=== PATIENT | female | born 1945 | race Caucasian/White ===

== ENCOUNTER → 2018-01-02 | Outpatient (CLI) | payer MEDICARE ==
--- NOTE | 2018-01-02 16:05 | Diagnostic Imaging Report ---
TECHNIQUE: Computed tomography imaging of the RIGHT SHOULDER was performed WITHOUT injected contrast. COMPARISON: None available. HISTORY: Pain FINDINGS: No acute fracture. No lytic or blastic lesion. Mild glenohumeral degenerative arthrosis with small osteophyte formation and cystic change in the glenoid. No subluxation or dislocation. Moderate degenerative arthrosis of the acromioclavicular joint with inferior osteophyte formation. Subacromial spurring. Atrophy of the rotator cuff musculature involving the supraspinatus and infraspinatus. Chronic interstitial change within the lungs with large bulla measuring up to 6.3 cm. IMPRESSION: Mild glenohumeral degenerative arthrosis. Findings of probable high-grade rotator cuff tear with muscle atrophy. Signed by: Dr. Rom Mcmahon M.D. on 01/02/2018 4:02 PM
== END ==
LOC: CT 14:18
PROVIDERS: ATTEND Internal Medicine
DX: M25.511 Pain in right shoulder (principal); M19.011 Primary osteoarthritis, right shoulder

== ENCOUNTER 2018-03-22 16:57 | Inpatient (IN) | payer MEDICARE ==
[~2018-03-22] VITALS: Ht 175.3 cm; Wt 90.7 kg
[2018-03-22] MEDS ORDERED: ONDANSETRON HCL INJ 2 MG/ML VIAL IV STA (17:53)
[2018-03-22] MEDS ORDERED: SODIUM CHLORIDE 0.9% 1000ML 1,000 ML IV STA (17:53)
[2018-03-22] MEDS ORDERED: PANTOPRAZOLE 40 MG 10ML VIAL IV STA (17:53)
[2018-03-22] MEDS ORDERED: ALBUTEROL SULF 0.083% NEB SOLN 3 ML NEB NEB STA (18:07)
[2018-03-22 18:10] LABS: BASOPHILS # (AUTO) 0.1 (0.0-0.1); BASOPHILS % 0.4 % (0.0-1.0); EOSINOPHILS # (AUTO) 0.2 (0.0-0.4); EOSINOPHILS % 1.2 % (0.0-6.0); HEMATOCRIT 38.5 % (34.2-44.1); HEMOGLOBIN 12.5 g/dL (12.0-16.0); LYMPHOCYTES # (AUTO) 1.6 (1.0-3.2); LYMPHOCYTES % 8.6 % (18.0-39.1); MEAN CORPUSCULAR HEMOGLOBIN 31.4 pg (28-32); MEAN CORPUSCULAR HGB CONC 32.5 g/dL (31-35); MEAN CORPUSCULAR VOLUME 96.7 fL (81-99); MONOCYTES # (AUTO) 1.4 (0.2-0.8); MONOCYTES % 7.8 % (4.4-11.3); NEUTROPHILS % 81.2 % (38.7-80.0); PLATELET COUNT 198 x10e3/uL (140-360); RED BLOOD COUNT 3.98 x10e6/uL (3.6-5.1); RED CELL DISTRIBUTION WIDTH 14.6 % (11.7-14.4)
[2018-03-22] MEDS ORDERED: MORPHINE SULFATE 2 MG/ML SYR IV STA (18:12)
[2018-03-22] MEDS ORDERED: IPRATROPIUM BROMIDE 0.02% 2.5 ML NEB NEB ONE (18:15)
[2018-03-22 18:19] LABS: INR 1.66; PROTHROMBIN TIME 18.4 seconds (11.9-14.5)
[2018-03-22 18:20] LABS: PARTIAL THROMBOPLASTIN TIME 32.6 seconds (23.8-35.5)
[2018-03-22 18:30] LABS: ALBUMIN 2.5 g/dL (3.5-5.0); ALBUMIN/GLOBULIN RATIO 0.6 (0.8-2.0); ANION GAP 19.9 mmol/L (8-16); CALCIUM 8.9 mg/dL (8.4-10.2); CREATININE, SERUM 1.19 mg/dL (0.57-1.11); MAGNESIUM 2.3 MG/DL (1.3-2.1); POTASSIUM 3.9 mmol/L (3.5-5.1)
[2018-03-22 18:36] LABS: CREATINE KINASE MB 1.7 ng/mL (0-5.0)
--- NOTE | 2018-03-22 18:44 | Diagnostic Imaging Report ---
EXAMINATION: CHEST SINGLE (PORTABLE) INDICATION: \S\ABD PAIN, N/V, COUGH \S\[id number] \S\1819 COMPARISON: None FINDINGS: AP view TUBES and LINES: 3-lead ICD with device overlying the left upper chest and leads overlying the right atrium, coronary sinus, and right ventricle. LUNGS: Low lung volumes. Patchy airspace opacities, bilaterally, right greater than left. Bilateral central pulmonary congestion. PLEURA: No pleural effusion or pneumothorax. HEART AND MEDIASTINUM: Mild enlargement of the left ventricle.. BONES AND SOFT TISSUES: No acute osseous lesion. Soft tissues are unremarkable. UPPER ABDOMEN: No free air under the diaphragm. IMPRESSION: Bilateral central pulmonary vascular congestion. Denser patchy opacities mainly in the right lower lobe may represent superimposed infection. Continue to follow-up. Signed by: Dr. Shara Morse M.D. on 03/22/2018 6:41 PM
[2018-03-22] MEDS ORDERED: DIATRIZOATE MEGL/DIATRIZOA SOD 30 ML BTL PO ONE (18:58)
[2018-03-22] MEDS ORDERED: LEVOFLOXACIN 500MG/D5W 100ML 100 ML IV SCH (19:30)
[2018-03-22] MEDS ORDERED: FERROUS SULFAT324 MG (19:43)
[2018-03-22] MEDS ORDERED: FLOVENT DISKUS50 MCG (19:43)
[2018-03-22] MEDS ORDERED: POTASSIUM CHLO10 ME1 PO (19:43)
[2018-03-22] MEDS ORDERED: OXYBUTYNIN CHLOR5 M1 PO (19:43)
[2018-03-22] MEDS ORDERED: MELATONIN3 MG PO (19:43)
[2018-03-22 19:46] LABS: OCCULT BLOOD STOOL NEGATIVE (NEGATIVE)
[2018-03-22 19:47] LABS: BILIRUBIN,URINE 1+ (NEGATIVE); CLARITY,URINE SL CLOUDY (CLEAR); COLOR,URINE YELLOW (YELLOW); KETONES,URINE NEGATIVE (NEGATIVE); LEUKOCYTE ESTERASE ,URINE TRACE (NEGATIVE); NITRITE,URINE POSITIVE (NEGATIVE); PROTEIN,URINE DIPSTICK 2+ (NEGATIVE); URINE UROBILINOGEN 0.2 mg/dL (0.2 - 1)
[2018-03-22 20:00] VITALS: BP 110/75
[2018-03-22 20:03] LABS: BACTERIA,URINE MANY /HPF; EPITHELIAL CELLS,URINE MODERATE /LPF
[2018-03-22 20:04] LABS: AMORPHOUS SEDIMENT,URINE MANY (FEW); TRIPLE PHOSPHATE CRYSTAL,UR MODERATE (FEW)
[2018-03-22] MEDS: PIPER-TAZ 3.375 GM 50 ML IV SCH (20:34)
--- NOTE | 2018-03-22 22:00 | Diagnostic Imaging Report ---
EXAM: CT Abdomen and Pelvis WITHOUT contrast INDICATION: Abdominal pain, nausea, vomiting COMPARISON: None. TECHNIQUE: Abdomen and pelvis were scanned utilizing a multidetector helical scanner from the lung base to the pubic symphysis without administration of IV contrast. Absence of intravenous contrast decreases sensitivity for detection of focal lesions and vascular pathology. Coronal and sagittal reformations were obtained. Routine protocol was performed. IV CONTRAST: None. ORAL CONTRAST: Gastrografin RADIATION DOSE: Total DLP: 736.85 mGy*cm Estimated effective dose: (DLP x 0.015 x size factor) mSv COMPLICATIONS: None FINDINGS: LINES and TUBES: AICD leads visualized in the right atrium, right ventricle and coronary sinus LOWER THORAX: There is a cavitary lesion in the right middle lobe measuring 5 cm in diameter with thick and relatively smooth margins, best seen on series 2, image 1 through 5 HEPATOBILIARY: No focal hepatic lesions. No biliary ductal dilation. GALLBLADDER: There are cholecystectomy clips. SPLEEN: No splenomegaly. PANCREAS: No focal masses or ductal dilatation. ADRENALS: No adrenal nodules KIDNEYS/URETERS: Bilateral renal atrophy recently on the left compatible with chronic medical renal disease No hydronephrosis. No cystic or solid mass lesions. No stones. There is a linear hyperdensity visualized in the inferior pole renal parenchyma extending to the inferior renal collecting system compatible with fragmentation of prior PCN tube. GI TRACT: No abnormal distention, wall thickening, or evidence of bowel obstruction. Moderate amount stool burden noted in the colon and rectum. Postsurgical changes in the rectum compatible with prior resection Appendix is normal. PELVIC ORGANS/BLADDER: There are postop changes of hysterectomy and bilateral oophorectomies. Bladder is decompressed by Nova catheter in place LYMPH NODES: No lymphadenopathy. VESSELS: There is severe atherosclerotic disease in the aorta and major arterial branches. Infrarenal IVC filter is visualized. PERITONEUM / RETROPERITONEUM: No free air or fluid. BONES: There are degenerative changes in the lumbar spine. Compression deformity of T12, most likely chronic resulting in approximately 50% vertebral body height loss SOFT TISSUES: Bilateral gluteal calcified granulomas most likely from injections resulting on fat necrosis IMPRESSION: 1. No evidence of acute intra-abdominal or pelvic abnormality. 2. Cavitated cystic lesion with thick wall in the right middle lobe is suspicious for infection (including remote TB infection) versus neoplasm. Follow-up with nonemergent CT is recommended. 3. Cardiomegaly without evidence of decompensation. Signed by: Dr. Rogers Caro M.D. on 03/22/2018 9:56 PM
[2018-03-22] MEDS ORDERED: SODIUM CHLORIDE 0.9% 1000ML 1,000 ML IV ONE (22:15)
[2018-03-22] MEDS ORDERED: ASPIRIN 81 MG CHEW TAB PO ONE (22:15)
[2018-03-22 23:00] VITALS: BP 110/75
[2018-03-22] MEDS: ALBUTEROL SULF 0.083% NEB SOLN 3 ML NEB NEB SCH (23:00)
[2018-03-22] MEDS: VANCOMYCIN 1GM/NS 250 ML 250 ML IV SCH (23:37)
[2018-03-22] MEDS ORDERED: FLORASTOR250 MG (23:54)
[2018-03-22] MEDS ORDERED: SYNTHROID100 MCG PO (23:54)
[2018-03-22] MEDS ORDERED: PANTOPRAZOLE SO40 MG PO (23:54)
[2018-03-23] VITALS (8 sets, daily range): BP systolic 108–137; BP diastolic 53–98
[2018-03-23] MEDS: ALBUTEROL/IPRATROPIUM 3 ML NEB NEB SCH ×6 (00:10→19:28)
[2018-03-23] MEDS ORDERED: CARVEDILOL3.125 MG PO (00:16)
[2018-03-23] MEDS ORDERED: HYDROCORTISONE25 MG (00:16)
[2018-03-23] MEDS ORDERED: IPRATROPIU0.2 MG/1 M NEB (00:16)
[2018-03-23] MEDS ORDERED: NITROGLYCERIN0.4 MG SL (00:16)
[2018-03-23] MEDS ORDERED: NORCO 5-325 TA1 EACH PO (00:16)
[2018-03-23] MEDS ORDERED: BREO ELLIPTA (00:16)
[2018-03-23] MEDS ORDERED: LEVALBUTER0.63 MG/3 NEB (00:16)
[2018-03-23] MEDS ORDERED: TIZANIDINE HCL4 M1 (00:16)
[2018-03-23] MEDS ORDERED: COENZYME Q10200 MG (00:16)
[2018-03-23] MEDS ORDERED: ACETAMINOPHEN650 MG RC (00:16)
[2018-03-23] MEDS ORDERED: FLEETS (00:16)
[2018-03-23] MEDS ORDERED: REMERON15 M1 (00:16)
[2018-03-23] MEDS ORDERED: AMIODARONE HCL200 MG (00:16)
[2018-03-23] MEDS ORDERED: LOMOTIL TABLET1 EACH (00:16)
[2018-03-23] MEDS ORDERED: CLOTRIMAZOLE-BE15 GM TOP (00:16)
[2018-03-23] MEDS ORDERED: XANAX0.5 MG (00:16)
[2018-03-23] MEDS ORDERED: CHLORASEPTIC177 ML MT (00:16)
[2018-03-23] MEDS ORDERED: BENADRYL25 M1 PO (00:16)
[2018-03-23] MEDS ORDERED: PROCTOSOL-HC28.35 GM (00:16)
[2018-03-23] MEDS ORDERED: ULTRAM50 MG PO (00:16)
[2018-03-23] MEDS ORDERED: GNP B-COMPLEX1 EACH (00:16)
[2018-03-23] MEDS ORDERED: LEVALBUTER1.25 MG/3 INH (00:16)
[2018-03-23] MEDS ORDERED: CLONIDINE HCL0.1 MG PO (00:16)
[2018-03-23] MEDS ORDERED: LIDO (00:16)
[2018-03-23] MEDS ORDERED: [UNRECOGNIZED DRUG - OTHER] (00:16)
[2018-03-23] MEDS ORDERED: XANAX2 MG (00:16)
[2018-03-23] MEDS ORDERED: ZOFRAN ODT4 MG (00:16)
[2018-03-23] MEDS ORDERED: ZINC OXIDE (00:16)
[2018-03-23] MEDS ORDERED: IPRATROPIUM BROMIDE 0.02% 2.5 ML NEB NEB SCH (01:00)
[2018-03-23] MEDS: PIPER-TAZ 3.375 GM 50 ML IV SCH ×4 (01:51→18:25)
[2018-03-23] MEDS ORDERED: SODIUM CHLORIDE 0.9% 250ML 250 ML ONE ×2 (01:52→17:41)
[2018-03-23] MEDS: ALBUTEROL SULF 0.083% NEB SOLN 3 ML NEB NEB SCH ×6 (03:00→23:00)
[2018-03-23 05:15] LABS: BASOPHILS # (AUTO) 0.1 (0.0-0.1); BASOPHILS % 0.4 % (0.0-1.0); EOSINOPHILS # (AUTO) 0.3 (0.0-0.4); EOSINOPHILS % 2.3 % (0.0-6.0); HEMATOCRIT 34.1 % (34.2-44.1); HEMOGLOBIN 10.7 g/dL (12.0-16.0); MEAN CORPUSCULAR HGB CONC 31.4 g/dL (31-35); MEAN CORPUSCULAR VOLUME 98.8 fL (81-99); MONOCYTES # (AUTO) 1.1 (0.2-0.8); MONOCYTES % 9.2 % (4.4-11.3); NEUTROPHILS # (AUTO) 8.1 (2.1-6.9); NEUTROPHILS % 70.4 % (38.7-80.0); PLATELET COUNT 72 x10e3/uL (140-360); RED BLOOD COUNT 3.45 x10e6/uL (3.6-5.1); RED CELL DISTRIBUTION WIDTH 14.7 % (11.7-14.4)
[2018-03-23 05:40] LABS: ALBUMIN/GLOBULIN RATIO 0.6 (0.8-2.0); ANION GAP 19.4 mmol/L (8-16); CREATININE, SERUM 1.08 mg/dL (0.57-1.11); POTASSIUM 3.4 mmol/L (3.5-5.1)
[2018-03-23 05:53] LABS: CREATINE KINASE MB 1.1 ng/mL (0-5.0)
[2018-03-23] MEDS ORDERED: CARVEDILOL 3.125 MG TAB PO SCH ×2 (09:00→17:00)
[2018-03-23] MEDS ORDERED: POTASSIUM CHLORIDE 20 MEQ TAB CR PO ONE (10:00)
--- NOTE | 2018-03-23 10:29 | Diagnostic Imaging Report ---
EXAM: CT Chest WITHOUT contrast INDICATION: Pneumonia. UTI. COMPARISON: CT abdomen and pelvis 03/22/2018. Chest x-ray 03/22/2018. TECHNIQUE: Chest was scanned utilizing a multidetector helical scanner from the lung apex through the level of the adrenal glands without administration of IV contrast. Absence of intravenous contrast decreases sensitivity for detection of lymphadenopathy and vascular pathology. Coronal and sagittal reformations were obtained. Routine protocol was performed. IV CONTRAST: None COMPLICATIONS: None RADIATION DOSE: Total DLP: 484.9 mGy*cm Estimated effective dose: (DLP x 0.014 x size factor) mSv CTDIvol has been reviewed. It is below the limits set by the Radiation Protocol Committee (RPC). FINDINGS: LINES/ TUBES: Left-sided pacemaker. LUNGS AND AIRWAYS: 3.2 x 3.2 x 6.4 cm cavitary pneumonia in the right upper and right middle lobe. There is associated atelectasis and air bronchograms. Right lower lobe atelectasis. PLEURA: The pleural spaces are clear. HEART AND MEDIASTINUM: The thyroid gland is normal. No axillary lymphadenopathy. 0.9 cm precarinal lymph node. Multiple small right paratracheal lymph nodes. The heart is mildly enlarged. There is no pericardial effusion. UPPER ABDOMEN: Cholecystectomy. BONES: The visualized bony thorax is within normal limits. SOFT TISSUES: Unremarkable. IMPRESSION: 3.2 x 3.2 x 6.4 cm cavitary pneumonia in the right upper and right middle lobe. Recommend follow-up chest CT after treatment to ensure that there is no underlying malignancy such as a cavitary squamous cell carcinoma. Signed by: Dr. Wong Nielson M.D. on 03/23/2018 10:25 AM
[2018-03-23] MEDS: AMIODARONE HCL 200 MG TAB PO SCH ×2 (11:05→17:00)
[2018-03-23] MEDS: ONDANSETRON HCL INJ 2 MG/ML VIAL IV PRN ×2 (11:05→15:39)
[2018-03-23] MEDS: FUROSEMIDE INJ 10 MG/ML 2 ML VIAL IV SCH ×2 (11:05→18:25)
[2018-03-23] MEDS: PANTOPRAZOLE SOD 40 MG TABEC PO SCH (11:05)
[2018-03-23] MEDS: HYDROCODONE/APAP 5MG-325MG TAB PO PRN (11:05)
[2018-03-23] MEDS: OXYBUTYNIN CHLORIDE XL 5 MG TAB PO SCH ×2 (11:05→17:00)
[2018-03-23] MEDS: VANCOMYCIN 1GM/NS 250 ML 250 ML IV SCH ×2 (11:05→22:54)
--- NOTE | 2018-03-23 11:09 | History and Physical ---
CHIEF COMPLAINT: Coughing since last 2 weeks and nausea and vomiting since last 1 day at [facility]. HISTORY OF PRESENT MEDICAL ILLNESS: A 72-year-old pleasant white female with past medical history of multiple medical problems, who was admitted [facility] last night with above complaints. As per patient, since last couple of weeks, she was having productive coughing with yellow-green phlegm with low-grade fever. Since yesterday, patient started having nausea and vomiting at [facility]. Also, patient says that about 3 days back, she had constipation, and she took some stool softeners. Since yesterday, she has constant runny diarrhea; and hence, patient came to ER last night. In emergency room, patient was seen by emergency room doctor and was diagnosed with pneumonia, UTI sepsis, and was admitted in the hospital for further care and treatment. At present, patient lying comfortably in bed, no apparent distress, complained of coughing plus complained of overall body soreness plus complained of diarrhea. No chest pain. No shortness of breath. No abdominal pain. No loss of consciousness. No palpitations. No headaches. No hematemesis or melena. No hematuria. No dysuria. No witnessed seizures. PAST MEDICAL HISTORY 1. History of cardiac arrhythmia in 2003, status post permanent pacemaker, AICD. 2. COPD. 3. CHF. 4. History of PE and DVT in 2003, status post knee surgery. 5. Hypothyroidism. 6. CKD. 7. Bedbound status. 8. Osteoarthritis. 9. Anxiety. 10. Chronic pain. MEDICATIONS: As listed in chart. ALLERGIES: AUGMENTIN, WELLBUTRIN, ADHESIVE TAPE. SOCIAL HISTORY: Ex-smoker, quit smoking in 1987. No alcohol. No illicit drug use. senior living resident, bedbound status. FAMILY HISTORY: Noncontributory. SURGICAL HISTORY 1. Gallbladder surgery. 2. Partial colectomy secondary to perforated diverticulitis in 2010, status post colostomy, status post colostomy reversal. 3. Arthroscopic knee surgery. REVIEW OF SYSTEMS: As per HPI. PHYSICAL EXAMINATION GENERAL: Patient is alert, awake, and oriented x3, in no apparent distress, lying in bed. VITALS: Temperature is 98, pulse is 70 per minute, respiratory rate 16 per minute, blood pressure is 114/60, saturation is 100% on 2 L oxygen. SKIN: No cyanosis. No icterus. No pallor. HEENT: Normocephalic, atraumatic. PERRLA. NECK: Soft and supple. No JVD. No carotid bruit. No lymphadenopathy. LUNGS: Air entry bilaterally equal. HEART: No murmur, gallop, or rub. ABDOMEN: Soft, nontender. Bowel sounds present. 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 Obeys all the commands. Moves extremities. LABS: On admission to ER, white count was 18.46. This morning, it is 11.52. Hemoglobin 10.7, hematocrit 34.1, platelets 72, on admission to ER was 198. Sodium 143, potassium 3.4, chloride 105, bicarb 22, BUN 18, creatinine 1.08, glucose 61. LFTs noted. Cardiac enzymes x2 are negative. BNP 336. Urine shows leukocyte esterase trace, wbc's 6 to 10, bacteria many. Stool for occult blood negative. Stool for C. diff pending. Chest x-ray shows dense or patchy opacities mainly in right lower lobe, may represent superimposed infection, bilateral central pulmonary vascular congestion. CT abdomen and pelvis shows no evidence of acute intra-abdominal or pelvic abnormality. Cavitatic cystic lesion with thick wall in the right middle lobe is suspicious for infection versus neoplasm including remote TB infection and cardiomegaly. EKG shows paced rhythm. ASSESSMENT 1. senior living acquired pneumonia. 2. Urinary tract infection sepsis. 3. History of congestive heart failure, cardiac arrhythmias, osteoarthritis, and hypothyroidism. 4. History of nausea, vomiting, diarrhea. PLAN: Admit patient to IMCU. Patient on IV vancomycin, IV Levaquin, IV Zosyn. Obtain cultures, stool for C. diff. Cautious hydration. Pulmonary will get CT chest without contrast for followup for cystic lesion in right middle lobe on CT abdomen and pelvis. Oxygen and neb treatments p.r.n. Pulmonary consultation, Dr. Zelaya. ID consultation, Dr. Gomez. Cardiology consultation, Dr. Alvarado. Further care and treatment as per clinical course of patient in the hospital. Discussed with patient in detail. Prognosis and condition guarded. Job#: [id number] LPA
--- NOTE | 2018-03-23 14:14 | Consultation ---
REASON FOR CONSULTATION: Congestive heart failure. HISTORY OF PRESENT ILLNESS: Ms. Khan is a 72-year-old female who resides in [facility] who is also bedbound who reports that she was brought in because of vomiting and coughing with green phlegm for the last three days. She also reports that she has had three episodes of pneumonia this year so far. She reports that her symptoms began three days ago and continued and continues to be worse at this point. She has a pertinent past medical history of systolic heart failure with an ICD placement in 2003. Also, hypertension and hyperlipidemia. At this moment, she does endorse a cough and fatigue. She denies any chest pain. Does endorse some shortness of breath. Denies fever, chills, palpitations, dizziness, or syncope. PAST MEDICAL HISTORY: As listed above includes systolic heart failure with defibrillator in place, recurrent pneumonia, hypertension, and hyperlipidemia. PAST SURGICAL HISTORY 1. Colostomy due to diverticulitis and bowel perforation. 2. Cholecystectomy. 3. Hysterectomy. 4. Appendectomy. SOCIAL HISTORY: Resides in a [facility], bedbound. REVIEW OF SYSTEMS: Negative except as mentioned above in the history of present illness. OBJECTIVE VITAL SIGNS: Temperature 98.9, pulse 101, respiratory rate 20, blood pressure 114/55, oxygen saturation 99% on 1 liter nasal cannula. GENERAL: Alert and oriented x3, resting comfortably in bed. Does not appear to be in acute distress. Continues to cough pretty frequently. NECK: Supple. No JVD noted. LUNGS: Diminished breath sounds throughout with scattered rhonchi. CARDIOVASCULAR: Regular rate and rhythm. ABDOMEN: Round, soft, and nontender. LOWER EXTREMITIES: Trace edema bilaterally. Right lower extremity with permanent bruise. 2+ pedal pulses. Telemetry with sinus rhythm atrially and ventricularly paced at all times. LABS: WBC 11.52, hemoglobin 10.7, hematocrit 34.1, platelet 72. Sodium 143, potassium 3.4, BUN 18, creatinine 1.08, glucose 61, calcium 8.0, AST 28, ALT 13, alkaline phosphatase 26, BNP 336. Urine sample positive for nitrites. Abdominal CT scan with no evidence of acute intraabdominal or pelvic abnormality, cavitated cystic lesion with thick wall in the right middle lobe is suspicious for infection including remote TB versus neoplasm. Cardiomegaly without evidence of decompensation. Chest x-ray with bilateral pulmonary vascular congestion and dense patchy opacity mainly in the right lower lobe represents superimposed infection. IMPRESSION 1. Right lower lobe pneumonia. 2. Pulmonary congestion. 3. Systolic heart failure status post [employer] automatic implantable cardioverter defibrillator. 4. Urinary tract infection. 5. Thrombocytopenia. 6. Debility. 7. Hypertension. 8. Hyperlipidemia. RECOMMENDATION: Continue with antimicrobial care per primary care physician. Continue with current cardiovascular medications. Interrogate defibrillator in the course of this stay. Monitor closely. Dose of beta-hubert adjusted due to tachycardia. Echo ordered. Maintain on telemetry at all times. We will monitor this patient very closely and also initiate diuretics. Thank you Dr. Traylor for this consultation. Dictated by: Xochitl Escoto NP Job#: [id number] JIV
[2018-03-23 14:19] LABS: CREATINE KINASE MB 1.1 ng/mL (0-5.0)
[2018-03-23] MEDS: MORPHINE SULFATE INJ 4 MG/ML INJ IV PRN ×2 (15:38→20:15)
--- NOTE | 2018-03-23 15:57 | Consultation ---
DATE OF CONSULTATION: March 23, 2018 PULMONARY CONSULTATION CONSULTING PHYSICIANS 1. Dr. Traylor. 2. Dr. Beckwith. CHIEF COMPLAINT: Abnormal CT of the chest and cough. HPI: Ms. Khan is a 72-year-old female who presented [facility] with complaints of productive cough going on for a few weeks and she is bringing up yellow-green phlegm and it is progressively getting worse. She was having low-grade fever as well. She reported that she was fine up until a few weeks ago and this started. She lives in a [facility]. She was last year tested for TB and that was negative. She has a history of smoking. She smoked for 30 years around 2 to 3 packs per day and quit in 1986. She denies any chest pain, nausea, vomiting, or diarrhea. REVIEW OF SYSTEMS GENERAL: Fever and chills. HEAD: Denies any head trauma. ENT: Denies any earache. CVS: Denies any chest pain. RESPIRATORY: Shortness of breath and cough. The rest of the review systems is negative except as in HPI. PAST MEDICAL HISTORY 1. Congestive heart failure, has AICD and pacemaker. 2. History of PE and DVT in 2003. 3. History of knee surgery. 4. Patient has been almost bedbound for the last 7 to 8 months and lives in a [facility]. 5. Hypothyroidism. 6. CKD. 7. Osteoarthritis. FAMILY HISTORY AND SOCIAL HISTORY: She quit smoking when she was around 54 years old. She starts smoking when she was 16. She used to smoke 3 packs per day. She denies any alcohol use. 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 SURGICAL HISTORY: Gallbladder, partial colectomy, arthroscopic knee surgery. PHYSICAL EXAMINATION VITAL SIGNS: Temperature 98.9, pulse of 70, blood pressure 114/55, respiratory rate of 18, and O2 sat 99% on 2 liters. HEENT: Head atraumatic, normocephalic. NECK: Supple. CHEST: Crackles bilaterally and rhonchi, occasional wheezing. HEART: S1 and S2 audible. ABDOMEN: Soft and nontender. EXTREMITIES: Chronic skin changes, trace pedal erythema. NEUROLOGIC: Awake, alert, and oriented. No focal neurologic deficit. LABORATORY DATA: White count of 18,000 when she came in, today is 11,000, hemoglobin 12.5, hematocrit 38.5, and platelets 198. Chemistry; sodium 143, potassium 3.4, chloride 105, BUN 18, creatinine 1.08. Yesterday, the creatinine was 1.19. BNP 336. CT of the chest, I have reviewed the images, no evidence of emphysema. There is a large almost 3 cm cavitary lesion in the right upper lobe. Bronchus is leading to it. I have reviewed the images of her shoulder CT which was done in December 2017 and that also shows that cavitary lesion appears to be unchanged. ASSESSMENT: A 72-year-old female with cough, increased phlegm production with cavitary lesion in the right upper lobe which is at least present since December 2017. Differential would be cavitary pneumonia, tuberculosis, fungal infection, or squamous cell carcinoma which can present this cavitary lesion. PLAN 1. I will continue the patient on vancomycin and Zosyn. ID consultation has been called. 2. Patient may need bronchoscopy as well. 3. I will order a sputum Gram stain and culture. 4. I will put the patient in isolation. 5. Nebulizer treatment. Thank you for this consult. Job#: [id number] ANGELINA
[2018-03-23 16:12] LABS: C DIFFICILE TOXIN A&B AMP PROB **POSITIVE** (NEGATIVE)
[2018-03-23] MEDS: VANCOMYCIN 250MG/5ML ORAL SOLN PO SCH (18:00)
[2018-03-24] VITALS (13 sets, daily range): BP systolic 105–159; BP diastolic 57–90
[2018-03-24] MEDS: MORPHINE SULFATE INJ 4 MG/ML INJ IV PRN ×4 (00:16→18:10)
[2018-03-24] MEDS: ONDANSETRON HCL INJ 2 MG/ML VIAL IV PRN ×2 (00:16→11:21)
[2018-03-24] MEDS: VANCOMYCIN 250MG/5ML ORAL SOLN PO SCH ×4 (00:45→17:56)
[2018-03-24] MEDS: PIPER-TAZ 3.375 GM 50 ML IV SCH ×4 (00:45→17:17)
--- NOTE | 2018-03-24 01:27 | Discharge Summary ---
JAMESON PEACE (00:03) ASHLEY BA MD Job#: [id number] JR
--- NOTE | 2018-03-24 02:24 | Consultation ---
DATE OF CONSULTATION: March 23, 2018 REASON FOR CONSULTATION: Pneumonia. HISTORY OF PRESENT ILLNESS: This is the patient who is a 72-year-old white female with history of obesity, comes in from the senior living. She has history of cardiac arrhythmia in 2003, status post placement of permanent pacemaker/AICD; history COPD; congestive heart failure; history of DVT in 2003; status post knee surgery; hypothyroidism; and chronic kidney disease. Currently, the patient has osteoarthritis, anxiety, chronic pain syndrome, and bedbound, comes into the emergency room because she has shortness of breath and she is having cough, fever, and chills. Patient came to the emergency room and was diagnosed with pneumonia. She also has a chronic Nova catheter. She also started to have diarrhea today. The patient was admitted. Infectious disease was consulted. Patient is currently lying in bed, complaining of diarrhea, cough, and shortness of breath. PAST MEDICAL HISTORY: Mentioned above. PAST SURGICAL HISTORY: Mentioned above. ALLERGIES: AUGMENTIN. SOCIAL HISTORY: She used to smoke, but quit in 1987. No drug abuse or alcohol abuse. She is currently in senior living. FAMILY HISTORY: Otherwise, noncontributory. REVIEW OF SYSTEMS HEENT: There is no headache, visual changes, or hearing changes. GI: There is no nausea, but there is diarrhea. CARDIAC: There is no arrhythmia. NEURO: No seizure activity. SKIN: There is no other rashes. LABORATORY DATA: Reviewed. Her C. diff came back negative. Urine is showing gram-negative rods. Sputum is still pending. White count on admission was 18.46, today is 11.52. Sodium 140 and potassium 3.9. Liver enzymes within normal limits. IMPRESSION AND PLAN: I think patient have: 1. Pneumonia, probably aspiration, concerned about healthcare-associated pneumonia: Agree with vancomycin and meropenem. 2. Diarrhea, clostridium difficile: We will put her on vancomycin 250 mg p.o. q.6 hours. We will add Questran 1 p.o. q.12 hours for diarrhea. 3. Obesity. 4. Debility. 5. Other medical problems as above. 6. We will follow with you. Thank you for asking me to see this patient. ALISON RIVERO MD Job#: [id number] VAS
[2018-03-24] MEDS: ALBUTEROL SULF 0.083% NEB SOLN 3 ML NEB NEB SCH ×6 (03:00→18:17)
[2018-03-24] MEDS: HYDROCODONE/APAP 5MG-325MG TAB PO PRN ×3 (03:05→22:47)
[2018-03-24] MEDS: ALBUTEROL/IPRATROPIUM 3 ML NEB NEB SCH ×6 (03:15→23:35)
[2018-03-24] MEDS ORDERED: IOPAMIDOL 370 MG/ML 200 ML INFUS..BTL INJ ONE (03:55)
[2018-03-24 04:52] LABS: BASOPHILS # (AUTO) 0.1 (0.0-0.1); BASOPHILS % 0.4 % (0.0-1.0); EOSINOPHILS # (AUTO) 0.3 (0.0-0.4); EOSINOPHILS % 2.4 % (0.0-6.0); HEMATOCRIT 30.7 % (34.2-44.1); HEMOGLOBIN 9.8 g/dL (12.0-16.0); LYMPHOCYTES # (AUTO) 1.4 (1.0-3.2); LYMPHOCYTES % 10.4 % (18.0-39.1); MEAN CORPUSCULAR HGB CONC 31.9 g/dL (31-35); MEAN CORPUSCULAR VOLUME 97.2 fL (81-99); MONOCYTES # (AUTO) 1.4 (0.2-0.8); MONOCYTES % 10.4 % (4.4-11.3); NEUTROPHILS # (AUTO) 10.5 (2.1-6.9); NEUTROPHILS % 75.7 % (38.7-80.0); PLATELET COUNT 139 x10e3/uL (140-360); RED BLOOD COUNT 3.16 x10e6/uL (3.6-5.1); RED CELL DISTRIBUTION WIDTH 14.7 % (11.7-14.4)
[2018-03-24 05:14] LABS: ALBUMIN/GLOBULIN RATIO 0.6 (0.8-2.0); ANION GAP 17.1 mmol/L (8-16); CALCIUM 7.8 mg/dL (8.4-10.2); CREATININE, SERUM 1.05 mg/dL (0.57-1.11); POTASSIUM 3.1 mmol/L (3.5-5.1)
[2018-03-24 05:34] LABS: THYROID STIMULATING HORMONE 0.493 uIU/mL (0.350-4.940)
[2018-03-24] MEDS: LEVOTHYROXINE SODIUM 100 MCG TAB PO SCH (06:14)
[2018-03-24] MEDS: PANTOPRAZOLE SOD 40 MG TABEC PO SCH (08:26)
[2018-03-24] MEDS: OXYBUTYNIN CHLORIDE XL 5 MG TAB PO SCH ×2 (08:27→16:32)
[2018-03-24] MEDS: AMIODARONE HCL 200 MG TAB PO SCH ×2 (08:27→16:32)
[2018-03-24] MEDS: FUROSEMIDE INJ 10 MG/ML 2 ML VIAL IV SCH ×2 (08:27→16:32)
[2018-03-24] MEDS ORDERED: POTASSIUM CHLORIDE 20 MEQ TAB CR PO ONE (10:30)
[2018-03-24] MEDS: VANCOMYCIN 1GM/NS 250 ML 250 ML IV SCH (11:00)
--- NOTE | 2018-03-24 11:05 | Diagnostic Imaging Report ---
Hand Complete CPT code: 15154 Indication:Pain, no trauma, history of arthritis Technique: Three portable views of the left hand obtained Comparison: None. Findings: Distal radius and ulna appear intact. Mild negative ulnar variance. Carpal bones appear generally well aligned. The digits are intact and normally aligned. There is mild proximal and distal IP joint narrowing of digits 2 through 5 and the IP joint of the first digit. Small osteophyte at the IP joint of the first digit. No fracture or focal osseous lesion. No subluxation. IV and tubing are present in the wrist. IMPRESSION: Mild degenerative changes of the digits. No acute fracture or dislocation. Signed by: Dr. Ramona Huertas MD on 03/24/2018 11:02 AM
--- NOTE | 2018-03-24 15:20 | Progress Note ---
DATE: March 24, 2018 CARDIOLOGY PROGRESS NOTE SUBJECTIVE: Patient continues to complain of a cough and also fatigue and occasional shortness of breath. OBJECTIVE VITAL SIGNS: Temperature 99.2, pulse 70, respiratory rate 20, blood pressure 159/77, oxygen saturation 97% on 2 liters nasal cannula. CARDIOVASCULAR MEDICATIONS 1. Coreg 12.5 mg p.o. b.i.d. 2. Levothyroxine 200 mcg p.o. daily. 3. Amiodarone 200 mg p.o. b.i.d. 4. Furosemide 20 mg IV q.12 hours. LABS: WBC 13.79, hemoglobin 9.8, hematocrit 30.7, platelets 139. Sodium 139, potassium 3.1, BUN 15, creatinine 1.05, calcium 7.8. TSH 0.493. Positive for C. diff. Hand x-ray with mild degenerative changes of the digits, no fracture or dislocation. TELEMETRY: Atrially and ventricularly paced. PHYSICAL EXAMINATION GENERAL: Alert and oriented x3, resting comfortably in bed. Does not appear to be in any acute distress. LUNGS: Diminished breath sounds throughout. No wheezing or rhonchi noted. No crackles. CARDIOVASCULAR: Regular rate and rhythm. Systolic murmur present. AICD in the chest cavity noted. ABDOMEN: Rounded, soft, nontender. EXTREMITIES: Lower extremities, no edema. IMPRESSION 1. Lower lobe pneumonia. 2. Systolic heart failure with a [employer] implantable cardioverter-defibrillator in place, last generator change in 2012. 3. Clostridium difficile. 4. Debility. 5. Bedbound. 6. Nausea. RECOMMENDATIONS: Echocardiogram has been ordered, awaiting completion. Recommendations will follow after the results. Continue the above-listed cardiac medications including diuretic. Antimicrobial therapy per primary team. Monitor closely and maintain on telemetry. Plan to interrogate ICD tomorrow. Dictated by: Xochitl Escoto NP Job#: [id number] LPA
[2018-03-24] MEDS: POTASSIUM CHLORIDE 20 MEQ TAB CR PO SCH (16:32)
[2018-03-24] MEDS: CARVEDILOL 12.5 MG TAB PO SCH (17:04)
--- NOTE | 2018-03-24 18:57 | Diagnostic Imaging Report ---
EXAMINATION: CHEST SINGLE (PORTABLE) COMPARISON: CT chest 03/23/2018, chest x-ray 03/22/2018 INDICATION: PICC line placement DISCUSSION: Frontal view of the chest obtained at 1828 hours. HEART AND MEDIASTINUM: Stable mild cardiomegaly and pacemaker/fibrillator wires. Right PICC line terminates in the SVC. No pneumothorax LUNGS: Subsegmental atelectasis/scar in the right middle lobe is stable. Thick walled cavity involving the right upper and middle lobes is stable. No new findings in the left lung. PLEURA: No pleural effusion or pneumothorax. BONES AND SOFT TISSUES: No focal osseous lesion. The soft tissues are normal. IMPRESSION: Right PICC line terminates in the SVC without pneumothorax. No new cardiopulmonary findings. Signed by: Dr. Ramona Huertas MD on 03/24/2018 6:53 PM
[2018-03-25] VITALS (9 sets, daily range): BP systolic 97–128; BP diastolic 46–130
[2018-03-25] MEDS: VANCOMYCIN 250MG/5ML ORAL SOLN PO SCH ×5 (00:54→23:36)
[2018-03-25] MEDS: PIPER-TAZ 3.375 GM 50 ML IV SCH ×3 (00:54→12:15)
[2018-03-25] MEDS: MORPHINE SULFATE INJ 4 MG/ML INJ IV PRN ×2 (01:40→23:46)
[2018-03-25] MEDS: ALBUTEROL/IPRATROPIUM 3 ML NEB NEB SCH ×6 (03:15→23:00)
[2018-03-25 05:14] LABS: BASOPHILS # (AUTO) 0.1 (0.0-0.1); BASOPHILS % 0.3 % (0.0-1.0); EOSINOPHILS # (AUTO) 0.3 (0.0-0.4); EOSINOPHILS % 1.7 % (0.0-6.0); HEMATOCRIT 33.2 % (34.2-44.1); HEMOGLOBIN 10.6 g/dL (12.0-16.0); LYMPHOCYTES # (AUTO) 1.8 (1.0-3.2); LYMPHOCYTES % 12.4 % (18.0-39.1); MEAN CORPUSCULAR HEMOGLOBIN 30.9 pg (28-32); MEAN CORPUSCULAR HGB CONC 31.9 g/dL (31-35); MEAN CORPUSCULAR VOLUME 96.8 fL (81-99); MONOCYTES # (AUTO) 1.4 (0.2-0.8); MONOCYTES % 9.3 % (4.4-11.3); NEUTROPHILS # (AUTO) 11.1 (2.1-6.9); NEUTROPHILS % 75.5 % (38.7-80.0); PLATELET COUNT 143 x10e3/uL (140-360); RED BLOOD COUNT 3.43 x10e6/uL (3.6-5.1); RED CELL DISTRIBUTION WIDTH 14.7 % (11.7-14.4)
[2018-03-25 05:36] LABS: ALBUMIN 2.1 g/dL (3.5-5.0); ALBUMIN/GLOBULIN RATIO 0.6 (0.8-2.0); ANION GAP 17.4 mmol/L (8-16); CALCIUM 8.3 mg/dL (8.4-10.2); CREATININE, SERUM 1.11 mg/dL (0.57-1.11); POTASSIUM 3.4 mmol/L (3.5-5.1)
[2018-03-25] MEDS: LEVOTHYROXINE SODIUM 100 MCG TAB PO SCH (06:55)
[2018-03-25] MEDS: ALBUTEROL SULF 0.083% NEB SOLN 3 ML NEB NEB SCH ×5 (07:00→23:00)
[2018-03-25] MEDS ORDERED: POTASSIUM CHLORIDE 20 MEQ TAB CR PO STA (08:19)
[2018-03-25] MEDS: ONDANSETRON HCL INJ 2 MG/ML VIAL IV PRN ×2 (08:25→23:46)
[2018-03-25] MEDS: FUROSEMIDE INJ 10 MG/ML 2 ML VIAL IV SCH ×2 (08:29→17:30)
[2018-03-25] MEDS: AMIODARONE HCL 200 MG TAB PO SCH ×2 (08:29→17:30)
[2018-03-25] MEDS: OXYBUTYNIN CHLORIDE XL 5 MG TAB PO SCH ×2 (08:29→17:30)
[2018-03-25] MEDS: CARVEDILOL 12.5 MG TAB PO SCH ×2 (08:29→17:30)
[2018-03-25] MEDS ORDERED: POTASSIUM CHLORIDE 20MEQ/100ML 100 ML IV ONE (08:30)
[2018-03-25] MEDS: POTASSIUM CHLORIDE 20 MEQ TAB CR PO SCH (08:30)
[2018-03-25] MEDS: GUAIFENESIN 600MG/DEXTROMETHORPHAN 30MG TABSR PO SCH ×3 (09:00→17:30)
--- NOTE | 2018-03-25 10:47 | Progress Note ---
DATE: March 25, 2018 CARDIOLOGY PROGRESS NOTE SUBJECTIVE: The patient's main complaint is of cough. She endorses chest pain when she coughs as well. OBJECTIVE VITALS: Temperature 98.9 degrees, pulse 70, respiratory rate 19, blood pressure 122/61, oxygen saturation 97%. GENERAL: Elderly woman in no acute distress. Awake and alert. LUNGS: Clear to auscultation bilaterally. No wheezes or crackles. CARDIOVASCULAR: Normal rate. Regular rhythm. No murmur. Normal S1 and S2. ABDOMEN: Soft and nontender. EXTREMITIES: No edema. CARDIAC MEDICATIONS 1. Carvedilol 12.5 mg p.o. b.i.d. 2. Furosemide 20 mg IV b.i.d. 3. Amiodarone 200 mg p.o. b.i.d. 4. Levothyroxine 200 mcg p.o. daily. LABS: WBC 14.7, hemoglobin 10.6, hematocrit 33.2, and platelets 143,000. Sodium 142, potassium 3.4, chloride 101, CO2 27, BUN 15, creatinine 1.11. Telemetry is V-paced. IMPRESSION 1. Right upper and middle lobe pneumonia. 2. Chronic systolic heart failure with [employer] implantable cardioverter defibrillator. 3. Clostridium difficile colitis. 4. Debility. 5. Nausea. 6. Hypertension. 7. Hyperlipidemia. RECOMMENDATIONS: Antibiotics per primary service. Continue current cardiac medications. ICD interrogation is pending. Echo has been ordered. We will review the images and maintain the patient on telemetry. Thank you for this consult. We will continue to follow. Job#: [id number] EDSON
[2018-03-25] MEDS: HYDROCODONE/APAP 5MG-325MG TAB PO PRN ×2 (12:19→20:19)
[2018-03-25] MEDS: TOBRAMYCIN 40 MG/ML 2ML VIAL INH SCH (17:00)
[2018-03-25] MEDS: ENOXAPARIN SOD INJ 40 MG/0.4 ML SYR SC SCH (17:30)
[2018-03-25] MEDS: FAMOTIDINE 20 MG TAB PO SCH (17:30)
[2018-03-26] VITALS (7 sets, daily range): BP systolic 107–132; BP diastolic 46–63
[2018-03-26] MEDS: ALBUTEROL/IPRATROPIUM 3 ML NEB NEB SCH ×6 (03:31→23:05)
[2018-03-26 04:44] LABS: BASOPHILS % 0.3 % (0.0-1.0); EOSINOPHILS # (AUTO) 0.5 (0.0-0.4); EOSINOPHILS % 4.3 % (0.0-6.0); HEMATOCRIT 30.9 % (34.2-44.1); HEMOGLOBIN 9.9 g/dL (12.0-16.0); LYMPHOCYTES # (AUTO) 1.8 (1.0-3.2); LYMPHOCYTES % 15.8 % (18.0-39.1); MEAN CORPUSCULAR HEMOGLOBIN 30.7 pg (28-32); MONOCYTES # (AUTO) 1.2 (0.2-0.8); MONOCYTES % 9.9 % (4.4-11.3); NEUTROPHILS # (AUTO) 8.1 (2.1-6.9); PLATELET COUNT 116 x10e3/uL (140-360); RED BLOOD COUNT 3.22 x10e6/uL (3.6-5.1); RED CELL DISTRIBUTION WIDTH 14.6 % (11.7-14.4)
[2018-03-26 05:09] LABS: ANION GAP 16.2 mmol/L (8-16); CALCIUM 8.1 mg/dL (8.4-10.2); CREATININE, SERUM 0.94 mg/dL (0.57-1.11); POTASSIUM 3.2 mmol/L (3.5-5.1)
[2018-03-26] MEDS: MORPHINE SULFATE INJ 4 MG/ML INJ IV PRN (05:41)
[2018-03-26] MEDS: ONDANSETRON HCL INJ 2 MG/ML VIAL IV PRN (05:41)
[2018-03-26] MEDS: VANCOMYCIN 250MG/5ML ORAL SOLN PO SCH ×3 (05:41→16:56)
[2018-03-26] MEDS: LEVOTHYROXINE SODIUM 100 MCG TAB PO SCH (05:41)
[2018-03-26] MEDS: ALBUTEROL SULF 0.083% NEB SOLN 3 ML NEB NEB SCH ×5 (06:49→23:05)
[2018-03-26] MEDS: CARVEDILOL 12.5 MG TAB PO SCH ×2 (07:17→16:56)
[2018-03-26] MEDS: FAMOTIDINE 20 MG TAB PO SCH ×2 (07:17→16:55)
[2018-03-26] MEDS ORDERED: POTASSIUM CHLORIDE 20MEQ/100ML 200 ML IV ONE (08:15)
[2018-03-26] MEDS: POTASSIUM CHLORIDE 20 MEQ TAB CR PO SCH (09:00)
[2018-03-26] MEDS: OXYBUTYNIN CHLORIDE XL 5 MG TAB PO SCH ×2 (09:03→16:56)
[2018-03-26] MEDS: AMIODARONE HCL 200 MG TAB PO SCH ×2 (09:03→16:55)
[2018-03-26] MEDS: FUROSEMIDE INJ 10 MG/ML 2 ML VIAL IV SCH (09:04)
[2018-03-26] MEDS: GUAIFENESIN 600MG/DEXTROMETHORPHAN 30MG TABSR PO SCH ×2 (09:04→16:56)
[2018-03-26] MEDS: HYDROCODONE/APAP 5MG-325MG TAB PO PRN ×2 (09:05→22:30)
--- NOTE | 2018-03-26 10:22 | Progress Note ---
DATE: March 26, 2018 CARDIOLOGY PROGRESS NOTE SUBJECTIVE: Patient denies chest pain or shortness of breath. Her main complaint is of hand pain. OBJECTIVE: VITAL SIGNS: Temperature 98.6 degrees, pulse 78, respiratory rate 18, blood pressure 121/63, oxygen saturation 90% on 1 liter nasal cannula. GENERAL: Elderly woman, no acute distress, awake and alert. LUNGS: Clear to auscultation bilaterally. No wheezes or crackles. CARDIOVASCULAR: Normal rate, regular rhythm. No murmur. Normal S1 and S2. ABDOMEN: Soft, nontender. EXTREMITIES: No edema. CARDIAC MEDICATIONS: Furosemide 20 mg IV daily, amiodarone 200 mg p.o. b.i.d., carvedilol 12.5 mg p.o. b.i.d., levothyroxine 200 mcg p.o. daily. LABS: WBC 11.68, hemoglobin 9.9, hematocrit 30.9, platelets 116,000. Sodium 142, potassium 3.2, chloride 101, CO2 28, BUN 15, creatinine 0.94. TELEMETRY: AV sequential pacing. IMPRESSION: 1. Right upper and middle lobe pneumonia. 2. Chronic systolic heart failure with [employer] implantable cardioverter-defibrillator. 3. Clostridium difficile colitis. 4. Debility. 5. Nausea. 6. Hypertension. 7. Hyperlipidemia. RECOMMENDATIONS: Antibiotics per primary service. Continue current cardiac medications. ICD interrogation is pending. Maintain patient on telemetry. Patient is on gentle diuretics with goal to keep patient net even. Thank you for this consult. We will continue to follow. Job#: [id number] DR ALSTON
[2018-03-26] MEDS: TOBRAMYCIN 40 MG/ML 2ML VIAL INH SCH ×2 (12:30→19:15)
[2018-03-26] MEDS: ENOXAPARIN SOD INJ 40 MG/0.4 ML SYR SC SCH (16:56)
[2018-03-27] VITALS (8 sets, daily range): BP systolic 111–142; BP diastolic 53–94
[2018-03-27] MEDS: VANCOMYCIN 250MG/5ML ORAL SOLN PO SCH ×4 (00:10→17:34)
[2018-03-27] MEDS: ALBUTEROL/IPRATROPIUM 3 ML NEB NEB SCH ×6 (03:10→23:45)
[2018-03-27] MEDS: ALBUTEROL SULF 0.083% NEB SOLN 3 ML NEB NEB SCH ×6 (03:10→23:00)
[2018-03-27 05:43] LABS: ANION GAP 14.5 mmol/L (8-16); CALCIUM 8.1 mg/dL (8.4-10.2); CREATININE, SERUM 0.99 mg/dL (0.57-1.11); POTASSIUM 3.5 mmol/L (3.5-5.1)
[2018-03-27] MEDS: HYDROCODONE/APAP 5MG-325MG TAB PO PRN ×3 (06:49→20:42)
[2018-03-27] MEDS: LEVOTHYROXINE SODIUM 100 MCG TAB PO SCH (06:49)
[2018-03-27] MEDS: TOBRAMYCIN 40 MG/ML 2ML VIAL INH SCH ×2 (07:46→20:00)
[2018-03-27] MEDS: FUROSEMIDE INJ 10 MG/ML 2 ML VIAL IV SCH (09:36)
[2018-03-27] MEDS: CARVEDILOL 12.5 MG TAB PO SCH ×2 (09:36→17:34)
[2018-03-27] MEDS: OXYBUTYNIN CHLORIDE XL 5 MG TAB PO SCH ×2 (09:36→17:34)
[2018-03-27] MEDS: FAMOTIDINE 20 MG TAB PO SCH ×2 (09:36→17:34)
[2018-03-27] MEDS: POTASSIUM CHLORIDE 20 MEQ TAB CR PO SCH (09:36)
[2018-03-27] MEDS: AMIODARONE HCL 200 MG TAB PO SCH ×2 (09:36→17:34)
[2018-03-27] MEDS: GUAIFENESIN 600MG/DEXTROMETHORPHAN 30MG TABSR PO SCH ×2 (09:36→17:34)
--- NOTE | 2018-03-27 10:29 | Progress Note ---
DATE: March 27, 2018 CARDIOLOGY PROGRESS NOTE SUBJECTIVE: No major events overnight. Feels well. No chest pain, shortness of breath or any bleeding. OBJECTIVE VITAL SIGNS: Temperature 98.4, pulse 64, respiratory rate 20, blood pressure 125/65, satting 100% on nasal cannula. GENERAL: Elderly, white female, well developed, thin. CARDIOVASCULAR: Regular rate, normal rhythm. Normal S1 and S2. No murmurs, rubs or gallops. Palpable carotid pulses. Palpable radial pulses. ABDOMEN: Soft, nontender. No masses. LUNGS: Clear to auscultation. Coarse breath sounds at the bases. EXTREMITIES: No edema. CARDIOVASCULAR MEDICATIONS: Reviewed. LABORATORY DATA: Reviewed. TELEMETRY DATA: AV pacing. ASSESSMENT AND PLAN 1. Right upper and middle lobe pneumonia. 2. Chronic systolic heart failure with implantable cardioverter-defibrillator placement. 3. Clostridium difficile colitis. 4. Debility. 5. Nausea. 6. Hypertension. 7. Hyperlipidemia. RECOMMENDATIONS: Antibiotics per primary team. Continue current cardiac medications. ICD interrogation is pending. Continue gentle diuresis with goal to keep the patient net even. Thank you for this consult. Will continue to follow. Job#: [id number]
[2018-03-27] MEDS: BALSAM PERU/CASTOR OIL 60 GM OINT...G. TP SCH ×2 (13:57→22:06)
[2018-03-27] MEDS: NYSTATIN/TRIAMCINOLONE 15 GM CR TOP SCH (13:58)
[2018-03-27] MEDS: ENOXAPARIN SOD INJ 40 MG/0.4 ML SYR SC SCH (17:34)
[2018-03-28] VITALS: BP 124/58
[2018-03-28] MEDS: VANCOMYCIN 250MG/5ML ORAL SOLN PO SCH ×4 (00:41→17:26)
[2018-03-28] MEDS: ALBUTEROL/IPRATROPIUM 3 ML NEB NEB SCH ×4 (03:00→15:25)
[2018-03-28] MEDS: ALBUTEROL SULF 0.083% NEB SOLN 3 ML NEB NEB SCH ×4 (03:00→15:00)
[2018-03-28 04:00] VITALS: BP 135/62
[2018-03-28 05:36] LABS: BASOPHILS % 0.4 % (0.0-1.0); EOSINOPHILS # (AUTO) 0.3 (0.0-0.4); EOSINOPHILS % 4.1 % (0.0-6.0); HEMATOCRIT 29.1 % (34.2-44.1); HEMOGLOBIN 9.3 g/dL (12.0-16.0); LYMPHOCYTES # (AUTO) 1.7 (1.0-3.2); LYMPHOCYTES % 21.3 % (18.0-39.1); MEAN CORPUSCULAR HEMOGLOBIN 30.6 pg (28-32); MEAN CORPUSCULAR VOLUME 95.7 fL (81-99); MONOCYTES # (AUTO) 0.9 (0.2-0.8); MONOCYTES % 10.6 % (4.4-11.3); NEUTROPHILS # (AUTO) 5.1 (2.1-6.9); NEUTROPHILS % 62.7 % (38.7-80.0); PLATELET COUNT 103 x10e3/uL (140-360); RED BLOOD COUNT 3.04 x10e6/uL (3.6-5.1); RED CELL DISTRIBUTION WIDTH 14.6 % (11.7-14.4)
[2018-03-28 05:53] LABS: ALANINE AMINOTRANSFERASE 12 IU/L (0-55); ALBUMIN 1.7 g/dL (3.5-5.0); ALBUMIN/GLOBULIN RATIO 0.5 (0.8-2.0); ALKALINE PHOSPHATASE 121 IU/L (40-150); ANION GAP 12.4 mmol/L (8-16); BLOOD UREA NITROGEN 13 mg/dL (7-26); BUN/CREATININE RATIO 16 (6-25); CALCIUM 7.8 mg/dL (8.4-10.2); CARBON DIOXIDE 27 mmol/L (22-29); CHLORIDE 103 mmol/L (98-107); CREATININE, SERUM 0.79 mg/dL (0.57-1.11); EST GLOMERULAR FILTRATION RATE > 60 ML/MIN (60-); GLUCOSE 68 mg/dL (74-118); POTASSIUM 3.4 mmol/L (3.5-5.1); SODIUM 139 mmol/L (136-145)
[2018-03-28] MEDS: LEVOTHYROXINE SODIUM 100 MCG TAB PO SCH (06:07)
[2018-03-28] MEDS: TOBRAMYCIN 40 MG/ML 2ML VIAL INH SCH (07:00)
[2018-03-28 07:49] VITALS: BP 133/60
[2018-03-28] MEDS ORDERED: POTASSIUM CHLORIDE 20 MEQ TAB CR PO STA (08:24)
[2018-03-28 08:25] VITALS: BP 133/60
[2018-03-28] MEDS: AMIODARONE HCL 200 MG TAB PO SCH ×2 (08:25→17:25)
[2018-03-28] MEDS: CARVEDILOL 12.5 MG TAB PO SCH ×2 (08:25→17:25)
[2018-03-28] MEDS: OXYBUTYNIN CHLORIDE XL 5 MG TAB PO SCH ×2 (08:25→17:25)
[2018-03-28] MEDS: FUROSEMIDE INJ 10 MG/ML 2 ML VIAL IV SCH (08:25)
[2018-03-28] MEDS: GUAIFENESIN 600MG/DEXTROMETHORPHAN 30MG TABSR PO SCH ×2 (08:25→17:25)
[2018-03-28] MEDS: FAMOTIDINE 20 MG TAB PO SCH ×2 (08:25→17:25)
[2018-03-28] MEDS: NYSTATIN/TRIAMCINOLONE 15 GM CR TOP SCH (08:26)
[2018-03-28] MEDS: BALSAM PERU/CASTOR OIL 60 GM OINT...G. TP SCH (08:26)
[2018-03-28] MEDS: HYDROCODONE/APAP 5MG-325MG TAB PO PRN ×2 (08:26→14:20)
[2018-03-28] MEDS ORDERED: POTASSIUM CHLORIDE 20MEQ/15ML UDC PO SCH (09:00)
[2018-03-28] MEDS ORDERED: POTASSIUM CHLORIDE 10MEQ EA PO NR (09:00)
[2018-03-28] MEDS ORDERED: PREDNISONE 20 MG TAB PO SCH (09:00)
[2018-03-28] MEDS ORDERED: ACYCLOVIR 5 GM CREAM..G. TOP SCH (09:30)
[2018-03-28] MEDS ORDERED: POTASSIUM CHLORIDE 20MEQ/15ML UDC PO NR (10:00)
[2018-03-28] MEDS: ACYCLOVIR 15 GM OINT TP SCH ×2 (11:13→17:26)
[2018-03-28] MEDS ORDERED: FUROSEMIDE INJ 10 MG/ML 4 ML VIAL IV SCH (11:15)
[2018-03-28 11:43] VITALS: BP 131/60
--- NOTE | 2018-03-28 11:51 | Progress Note ---
DATE: March 28, 2018 CARDIOLOGY PROGRESS NOTE SUBJECTIVE: Patient denies chest pain or shortness of breath. Her main complaint is of arthritis today. OBJECTIVE: VITAL SIGNS: Temperature 95.9 degrees, pulse 70, respiratory rate 20, blood pressure 133/60, oxygen saturation 99% on 2 L nasal cannula. GENERAL: Elderly woman in no acute distress. Awake and alert. LUNGS: Clear to auscultation bilaterally. No wheezes or crackles. CARDIOVASCULAR: Normal rate, regular rhythm. No murmur. Normal S1, S2. ABDOMEN: Soft, nontender. EXTREMITIES: Trace edema. CARDIAC MEDICATIONS: 1. Furosemide 20 mg IV daily. 2. Carvedilol 12.5 mg p.o. b.i.d. 3. Amiodarone 200 mg p.o. b.i.d. 4. Levothyroxine 200 mcg p.o. daily. 5. Enoxaparin 40 mg subcutaneous daily. LABS: WBC 8.09, hemoglobin 9.3, hematocrit 29.1, platelets 103. Sodium 139, potassium 3.4, chloride 103, CO2 27, BUN 13, creatinine 0.79. IMPRESSION: 1. Right upper and middle lobe pneumonia. 2. Chronic systolic heart failure with [employer] implantable cardioverter-defibrillator. 3. Clostridium difficile colitis. 4. Debility. 5. Nausea. 6. Hypertension. 7. Hyperlipidemia. RECOMMENDATIONS: Antibiotics per primary service. Continue current cardiac medications. ICD interrogation revealed 88% atrial pacing, 91% RV pacing, and 86% LV pacing. There was no LV capture. LV output was increased. No episodes, no events otherwise. Continue gentle diuresis to keep patient net even. Monitor volume status closely. Thank you for this consult. We will continue to follow. Job#: [id number] [place]
[2018-03-28] MEDS ORDERED: VANCOMYCIN 1GM/NS 250 ML 250 ML IV SCH (12:00)
[2018-03-28] MEDS ORDERED: SODIUM CHLORIDE 0.9% 250ML 250 ML ONE (12:14)
[2018-03-28 16:07] VITALS: BP 133/73
[2018-03-28] MEDS: ENOXAPARIN SOD INJ 40 MG/0.4 ML SYR SC SCH (17:25)
--- NOTE | 2018-03-28 17:56 | Consultation ---
DATE OF CONSULTATION: March 25, 2018 HEMATOLOGY CONSULTATION REQUESTING PHYSICIAN: Dr. Beckwith. HISTORY OF PRESENT ILLNESS: Regla Khan is a 72-year-old white female who was referred to me for evaluation of thrombocytopenia. The patient had presented with bronchopneumonia, subsequently also developed Clostridium colitis. HISTORY OF PAST ILLNESS: History of cardiac arrhythmias, history of AICD, history of COPD, history of congestive heart failure, history of pulmonary embolus and DVT in 2003, history of partial colectomy in 2010 because of perforation. SOCIAL HISTORY: Noncontributory. FAMILY HISTORY: Noncontributory. ALLERGIES REPORTED: AUGMENTIN, COTTAGE CHEESE, PRAVASTATIN, ADHESIVE TAPE, BUPROPION. MEDICATIONS AT THIS TIME 1. Albuterol. 2. Zosyn. 3. Vancomycin. 4. Potassium. 5. Amiodarone. 6. Synthroid. 7. Tylenol with hydrocodone. 8. Oxybutynin. 9. Lasix. 10. Morphine. 11. Ondansetron. 12. Coreg. 13. Lovenox. 14. Pepcid. 15. Guaifenesin-dextromethorphan. 16. Potassium intermittently. REVIEW OF SYSTEMS HEENT: Normal. CARDIAC: History of hypertension, cardiac arrhythmias. RESPIRATORY: At the present time bronchopneumonia with a cavitating lesion. GASTROINTESTINAL: Clostridium colitis, history of partial colectomy in the past because of perforation in 2010. GENITOURINARY: Normal. MUSCULOSKELETAL: Normal. SKIN AND BREASTS: Normal. NEUROENDOCRINE: Hypothyroidism. PHYSICAL EXAMINATION GENERAL: A rather large-built female. No adenopathy. HEART: Within normal limits. LUNGS: Coarse crepitations. ABDOMEN: Obese. Prior surgery seen. RECTAL/VAGINAL: Examinations deferred. CENTRAL NERVOUS SYSTEM: Could not be done. EXTREMITIES: 1+ pitting edema of the feet. LAB: Show a hemoglobin of 9.9, hematocrit of 30.9, white count 11,600, platelets 116,000. BUN 15, creatinine 1.1, sodium 142, potassium 3.4, chloride is 101, CO2 27. Bilirubin 0.6, SGOT 37, SGPT 22, alkaline phosphatase 111. INR 1.66. IMPRESSION 1. Bronchopneumonia. 2. Cavitating lesion in the lung. 3. Clostridium colitis. 4. Morbid obesity. 5. History of cardiac arrhythmias. 6. History of automatic implantable cardioverter-defibrillator. 7. History of chronic obstructive pulmonary disease. 8. History of congestive heart failure. 9. History of pulmonary embolus and deep vein thrombosis in 2003. 10. History of partial colectomy for perforation in 2010. 11. Transient thrombocytopenia possibly related to the Zosyn. 12. Hypokalemia. 13. Hypoproteinemia. 14. Hypoalbuminemia. 15. Hypothyroidism. PLAN, COMMENTS AND SUGGESTIONS: No intervention. As far as the platelets are concerned, this is drug-related and infection-related. I will confine myself to hematology. I will closely watch the platelets. Thank you very much for allowing me to participate in the management of this patient during this hospitalization. Job#: [id number] EV cc:MD ANTONY GARCIAS MD ZAHER SHEBIB, MD KARAN BHALLA, MD DILIP PATEL, MD
--- OUTSIDE RECORDS SUMMARY | 2018-04-11 08:07 | XMS REPORT ---
Author Author [facility] Address Unknown Phone Unavailable Care Team Providers Care Retail Route Supervisor Name Role Phone TARAH AGRAWAL Unavailable Unavailable Problems This patient has no known problems. Allergies, Adverse Reactions, Alerts This patient has no known allergies or adverse reactions. Medications This patient has no known medications. Results Test Description Test Time Test Comments Text Results Atomic Results Result Comments CHEST SINGLE (PORTABLE) 2018-03-24 18:51:00 [place] [address] Patient Name: GLORIA BARTHOLOMEW MR #: [id number] : 1945 Age/Sex: 72/ F Req #: [id number] Adm Physician: TARAH AGRAWAL MD Ordered by: GOLDEN PRECIADO MD Report #: [id number] Location: [facility] Room/Bed: [place] [address] Procedure: [id number] DX/CHEST SINGLE ( PORTABLE) Exam Date: 03/24/18 Exam Time: 1800 REPORT STATUS: Signed EXAMINATION: CHEST SINGLE (PORTABLE) COMPARISON: CT chest 03/23/2018, chest x-ray 03/22/2018 INDICATION: PICC line placement DISCUSSION: Frontal view of the chest obtained at 1828 hours. HEART AND MEDIASTINUM: Stable mild cardiomegaly and pacemaker/ fibrillator wires. Right PICC line terminates in the SVC. No pneumothorax LUNGS: Subsegmental atelectasis/scar in the right middle lobe is stable. Thick walled cavity involving the right upper and middle lobes is stable. No new findings in the left lung. PLEURA: No pleural effusion or pneumothorax. BONES AND SOFT TISSUES: No focal osseous lesion. The soft tissues are normal. IMPRESSION: Right PICC line terminates in the SVC without pneumothorax. No new cardiopulmonary findings. Signed by: Dr. Raven Huertas MD on 03/24/2018 6:53 PM Dictated By: RAVEN HUERTAS MD 52 Transcribed By: JOSE on 03/24/181852 COPY TO: GOLDEN PRECIADO MD HAND 3+ VIEWS LEFT 2018-03-24 11:00:00 [place] [address] Patient Name: GLORIA BARTHOLOMEW MR #: [id number] : 1945 Age/Sex: 72/F Req #: [id number] Adm Physician: TARAH AGRAWAL MD Ordered by: GOLDEN PRECIADO MD Report #: [id number] Location: [facility] Room/Bed: [place] [address] Procedure: [id number] DX/HAND 3+ VIEWS LEFT Exam Date: 03/24/18 Exam Time: 1050 REPORT STATUS: Signed Hand Complete CPT code: 79134 Indication:Pain, no trauma, history of arthritis Technique: Three portable views of the left hand obtained Comparison: None. Findings: Distal radius and ulna appear intact. Mild negative ulnar variance. Carpal bones appear generally well aligned. The digits are intact and normally aligned. There is mild proximal and distal IP joint narrowing of digits 2 through 5 and the IP joint of the first digit. Small osteophyte at the IP joint of the first digit. No fracture or focal osseous lesion. No subluxation. IV and tubing are present in the wrist. IMPRESSION: Mild degenerative changes of the digits. No acute fracture or dislocation. Signed by: Dr. Raven Huertas MD on 03/24/2018 11:02 AM Dictated By: RAVEN HUERTAS MD 01 Transcribed By : JOSE on 03/24/181101 COPY TO: GOLDEN PRECIADO MD CT CHEST WO 2018-03-23 10:08:00 [place] [address] Patient Name: GLORIA BARTHOLOMEW MR #: [id number] : 1945 Age/Sex: 72/F Req #: [id number] Adm Physician: TARAH AGRAWAL MD Ordered by : GOLDEN PRECIADO MD Report #: [id number] Location: [facility] Room/Bed: [place] [address] Procedure: [id number] CT/CT CHEST WO Exam Date: Exam Time: 0950 REPORT STATUS: Signed EXAM: CT Chest WITHOUT contrast INDICATION: Pneumonia. UTI. COMPARISON: CT abdomen and pelvis 03/22/2018. Chest x-ray 03/22/2018. TECHNIQUE: Chest was scanned utilizing a multidetector helical scanner from the lung apex through the level of the adrenal glands without administration of IV contrast. Absence of intravenous contrast decreases sensitivity for detection of lymphadenopathy and vascular pathology. Coronal and sagittal reformations were obtained. Routine protocol was performed. IV CONTRAST : None COMPLICATIONS: None RADIATION DOSE: Total DLP: 484.9 mGy*cm Estimated effective dose: (DLP x 0.014 x size factor) mSv CTDIvol has been reviewed. It is below the limits set by the Radiation Protocol Committee (RPC). FINDINGS: LINES/ TUBES: Left- sided pacemaker. LUNGS AND AIRWAYS: 3.2 x 3.2 x 6.4 cm cavitary pneumonia in the right upper and right middle lobe. There is associated atelectasis and air bronchograms. Right lower lobe atelectasis. PLEURA: The pleural spaces are clear. HEART AND MEDIASTINUM: The thyroid gland is normal. No axillary lymphadenopathy. 0.9 cm precarinal lymph node. Multiple small right paratracheal lymph nodes. The heart is mildly enlarged. There is no pericardial effusion. UPPER ABDOMEN: Cholecystectomy. BONES : The visualized bony thorax is within normal limits. SOFT TISSUES: Unremarkable. IMPRESSION: 3.2 x 3.2 x 6.4 cm cavitary pneumonia in the right upper and right middle lobe. Recommend follow-up chest CT after treatment to ensure that there is no underlying malignancy such as a cavitary squamous cell carcinoma. Signed by: Dr. Samm Correia M.D. on 03/23/2018 10:25 AM Dictated By: SAMM CORREIA MD 1025 COPY TO: GOLDEN PRECIADO MD CT ABDOMEN/PELVIS WO 2018-03-22 21:37:00 [place] [address] Patient Name: GLORIA BARTHOLOMEW MR #: [id number] : 1945 Age/Sex: 72/F Req #: [id number] Adm Physician: Ordered by: BLOSSOM BARR MD Report #: [id number] Location: ER Room/Bed: Procedure: [id number] CT/CT ABDOMEN/PELVIS WO Exam Date: Exam Time: REPORT STATUS: Signed EXAM: CT Abdomen and Pelvis WITHOUT contrast INDICATION: Abdominal pain, nausea, vomiting COMPARISON: None. TECHNIQUE: Abdomen and pelvis were scanned utilizing a multidetector helical scanner from the lung base to the pubic symphysis without administration of IV contrast. Absence of intravenous contrast decreases sensitivity for detection of focal lesions and vascular pathology. Coronal and sagittal reformations were obtained. Routine protocol was performed. IV CONTRAST: None. ORAL CONTRAST: Gastrografin RADIATION DOSE: Total DLP: 736.85 mGy*cm Estimated effective dose: (DLP x 0.015 x size factor) mSv COMPLICATIONS: None FINDINGS: LINES and TUBES: AICD leads visualized in the right atrium, right ventricle and coronary sinus LOWER THORAX: There is a cavitary lesion in the right middle lobe measuring 5 cm in diameter with thick and relatively smooth margins, best seen on series 2, image 1 through 5 HEPATOBILIARY: No focal hepatic lesions. No biliary ductal dilation. GALLBLADDER: There are cholecystectomy clips. SPLEEN: No splenomegaly. PANCREAS: No focal masses or ductal dilatation. ADRENALS: No adrenal nodules KIDNEYS/URETERS: Bilateral renal atrophy recently on the left compatible with chronic medical renal disease No hydronephrosis. No cystic or solid mass lesions. No stones. There is a linear hyperdensity visualized in the inferior pole renal parenchyma extending to the inferior renal collecting system compatible with fragmentation of prior PCN tube. GI TRACT: No abnormal distention, wall thickening, or evidence of bowel obstruction. Moderate amount stool burden noted in the colon and rectum. Postsurgical changes in the rectum compatible with prior resection Appendix is normal. PELVIC ORGANS/BLADDER: There are postop changes of hysterectomy and bilateral oophorectomies. Bladder is decompressed by Nova catheter in place LYMPH NODES: No lymphadenopathy. VESSELS: There is severe atherosclerotic disease in the aorta and major arterial branches. Infrarenal IVC filter is visualized. PERITONEUM / RETROPERITONEUM: No free air or fluid. BONES: There are degenerative changes in the lumbar spine. Compression deformity of T12, most likely chronic resulting in approximately 50% vertebral body height loss SOFT TISSUES: Bilateral gluteal calcified granulomas most likely from injections resulting on fat necrosis IMPRESSION: 1. No evidence of acute intra-abdominal or pelvic abnormality. 2. Cavitated cystic lesion with thick wall in the right middle lobe is suspicious for infection ( including remote TB infection) versus neoplasm. Follow-up with nonemergent CT is recommended. 3. Cardiomegaly without evidence of decompensation. Signed by: Dr. Rogers Caro M.D. on 03/22/2018 9:56 PM Dictated By: ROGERS MENENDEZ MD 55 COPY TO: BLOSSOM BARR MD CHEST SINGLE (PORTABLE) 2018-03-22 18:39:00 [place] [address] Patient Name: GLORIA BARTHOLOMEW MR #: [id number] : 1945 Age/Sex: 72/ F Req #: [id number] Adm Physician: Ordered by: BLOSSOM BARR MD Report #: [id number] Location: ER Room/Bed: ___ Procedure: [id number] DX/CHEST SINGLE (PORTABLE) Exam Date: 03/22/18 Exam Time: 1820 REPORT STATUS: Signed EXAMINATION: CHEST SINGLE (PORTABLE) INDICATION: COMPARISON: None FINDINGS: AP view TUBES and LINES: 3-lead ICD with device overlying the left upper chest and leads overlying the right atrium, coronary sinus, and right ventricle. LUNGS: Low lung volumes. Patchy airspace opacities, bilaterally, right greater than left. Bilateral central pulmonary congestion. PLEURA: No pleural effusion or pneumothorax. HEART AND MEDIASTINUM: Mild enlargement of the left ventricle.. BONES AND SOFT TISSUES: No acute osseous lesion. Soft tissues are unremarkable. UPPER ABDOMEN: No free air under the diaphragm. IMPRESSION: Bilateral central pulmonary vascular congestion. Denser patchy opacities mainly in the right lower lobe may represent superimposed infection. Continue to follow-up. Signed by: Dr. Leatha Warner M.D. on 03/22/2018 6:41 PM Dictated By: LEATHA WARNER MD 40 Transcribed By: JOSE on 03/22/181840 COPY TO: BLOSSOM BARR MD CT SHOULDER RIGHT WO 2018-01-02 15:58:00 [place] [address] Patient Name: GLORIA BARTHOLOMEW MR #: [id number] : 1945 Age/Sex: 72/F Req #: [id number] Adm Physician: Ordered by: TARAH AGRAWAL MD Report #: [id number] Location: CT Room/Bed: ____ Procedure: [id number] CT/CT SHOULDER RIGHT WO Exam Date: 01/02/18 Exam Time: 1445 REPORT STATUS: Signed TECHNIQUE: Computed tomography imaging of the RIGHT SHOULDER was performed WITHOUT injected contrast. COMPARISON: None available. HISTORY: Pain FINDINGS: No acute fracture. No lytic or blastic lesion. Mild glenohumeral degenerative arthrosis with small osteophyte formation and cystic change in the glenoid. No subluxation or dislocation. Moderate degenerative arthrosis of the acromioclavicular joint with inferior osteophyte formation. Subacromial spurring. Atrophy of the rotator cuff musculature involving the supraspinatus and infraspinatus. Chronic interstitial change within the lungs with large bulla measuring up to 6.3 cm. IMPRESSION: Mild glenohumeral degenerative arthrosis. Findings of probable high-grade rotator cuff tear with muscle atrophy. Signed by: Dr. Salty Carty M.D. on 01/02/2018 4:02 PM Dictated By: SALTY CARTY MD 1602 Transcribed By: JOSE on 01/02/18 1602 COPY TO: TARAH AGRAWAL MD
--- OUTSIDE RECORDS SUMMARY | 2018-04-11 08:07 | XMS REPORT | Clinical Summary ---
Author Author [facility] [place] [facility] Address Unknown Phone Unavailable Care Team Providers Care [employer] Name Role Phone Asked, Pcp PCP Unavailable Allergies Active Allergy Reactions Severity Noted Date Comments Adhesive Tape-Silicones 07/08/2017 Amoxicillin-Pot Diarrhea 03/16/2016 Clavulanate Pravastatin Other (See Comments) 03/16/2016 Nausea/vomiting Bupropion Hcl Other (See Comments) 03/16/2016 Blister on feet Current Medications Prescription Sig. Disp. Refills Start End Date Status Date tiZANidine (ZANAFLEX) 4 Take 4 mg by mouth every Active MG tablet morning. ondansetron (ZOFRAN) 4 MG Take 4 mg by mouth every Active tablet 4 (four) hours as needed for nausea or vomiting. carvedilol (COREG) 6.25 Take 6.25 mg by mouth 2 10/06/19 Active MG tablet (two) times a day. 18 clonIDINE (CATAPRES) 0.1 Take 0.1 mg by mouth 10/06/19 Active MG tablet every 8 (eight) hours as 18 needed. If SBP > 170 or DBP > 110 estradiol (ESTRACE) 1 MG Take 1 mg by mouth every 09/15/19 Active tablet morning. 18 levothyroxine (SYNTHROID, Take 200 mcg by mouth 10/06/19 Active LEVOXYL) 200 mcg tablet every morning. 18 pantoprazole (PROTONIX) Take 40 mg by mouth every 10/08/19 Active 40 MG EC tablet morning. 18 predniSONE (DELTASONE) 10 Take 10 mg by mouth every 10/08/19 Active mg tablet morning. 18 XARELTO 15 mg tablet Take 15 mg by mouth every 09/26/19 Active morning. 18 sucralfate (CARAFATE) 100 Take 1 g by mouth 4 10/08/19 Active mg/mL suspension (four) times a day before 18 meals and nightly. UBIDECARENONE (COENZYME Take 400 mg by mouth 2 Active Q10 ORAL) (two) times a day. magnesium hydroxide Take 30 mL by mouth daily Active (magnesium hydroxide) 400 as needed. mg/5 mL suspension magnesium oxide (MAG-OX) Take 400 mg by mouth Active 400 mg tablet every morning. folic acid (FOLVITE) 1 MG Take 1 mg by mouth every Active tablet morning. mirtazapine (REMERON) 7.5 Take 7.5 mg by mouth 10/06/19 Active MG tablet nightly. 18 melatonin 3 mg tablet Take 3 mg by mouth Active nightly. ipratropium (ATROVENT) Take 2.5 mL by 10/06/19 Active 0.02 % nebulizer solution nebulization every 4 18 (four) hours while awake. levalbuterol (XOPENEX) Take 3 mL by nebulization 10/06/19 Active 0.63 mg/3 mL nebulizer every 4 (four) hours as 18 solution needed. nitroglycerin (NITROSTAT) Take 0.4 mg by mouth 10/06/19 Active 0.4 MG SL tablet every 5 (five) minutes as 18 needed. fluticasone-vilanterol Inhale 1 inhalations Active (BREO ELLIPTA) 100-25 daily. mcg/dose blister with device powder for inhalation traMADol (ULTRAM) 50 mg Take 50 mg by mouth every Active tablet 12 (twelve) hours as needed for moderate pain. NON FORMULARY Apply 1 application Active topically 3 (three) times a day as needed. ZINC OXIDE/LIDOCAINE 5 % CREAM hydrocortisone Insert 1 application into Active (ANUSOL-HC) 2.5 % rectal the rectum 3 (three) cream times a day. bisacodyl (FLEET) 10 Insert 10 mg into the Active mg/30 mL enema rectum daily as needed for constipation. diphenhydrAMINE Take 25 mg by mouth 3 Active (BENADRYL) 25 mg tablet (three) times a day as needed for sleep. diphenoxylate-atropine Take 2 tablets by mouth Active (LOMOTIL) 2.5-0.025 mg every 6 (six) hours as per tablet needed for diarrhea. ALPRAZolam (XANAX) 0.5 MG Take 0.5 mg by mouth 2 Active tablet (two) times a day. 9A AND 5PM amIODarone (PACERONE) 200 Take 200 mg by mouth 2 Active MG tablet (two) times a day. Lactobacillus Take 1 tablet by mouth Active raz-Earlene daily. (FLORANEX) 1 million cell tablet fluticasone (FLONASE) 50 2 sprays by Each Nare Active mcg/actuation nasal spray route daily. phenol (CHLORASEPTIC) 1.4 Apply 1 spray to the Active % aerosol,spray mouth or throat every 6 (six) hours as needed. furosemide (LASIX) 20 mg Take 60 mg by mouth every Active tablet other day. methylcellulose Take 1 packet by mouth Active (CITRUCEL, SUCROSE,) oral every other day. powder acetaminophen (TYLENOL) Take 650 mg by mouth Active 325 MG tablet every 4 (four) hours as needed for fever. saliva substitute combo 1 spray by mucous Active no.3 aerosol,spray membrane route every 12 (twelve) hours. valsartan (DIOVAN) 320 MG Take 320 mg by mouth 04/12/20 Discontin tablet daily. 17 ued atorvastatin (LIPITOR) 20 Take 20 mg by mouth 04/12/20 Discontin MG tablet nightly. 17 ued carvedilol (COREG) 6.25 Take 6.25 mg by mouth 2 04/12/20 Discontin MG tablet (two) times a day with 17 ued meals. furosemide (LASIX) 20 MG Take 20 mg by mouth 04/12/20 Discontin tablet daily. 17 ued potassium chloride Take 20 mEq by mouth 04/12/20 Discontin (K-DUR,KLOR-CON) 10 MEQ daily. 17 ued CR tablet predniSONE (DELTASONE) 10 Take 5 mg by mouth daily. 04/12/20 Discontin MG tablet 17 ued diphenhydrAMINE Take 25 mg by mouth 04/12/20 Discontin (BENADRYL) 25 mg tablet daily. prn 17 ued dabigatran etexilate Take 75 mg by mouth 2 04/12/20 Discontin (PRADAXA) 75 mg capsule (two) times a day. 17 ued gabapentin (NEURONTIN) Take 800 mg by mouth 3 04/12/20 Discontin 800 mg tablet (three) times a day. 17 ued folic acid (FOLVITE) 1 MG Take 1 mg by mouth daily. 04/12/20 Discontin tablet 17 ued levothyroxine (SYNTHROID, Take 200 mcg by mouth 04/12/20 Discontin LEVOXYL) 200 mcg tablet every morning. 17 ued tiZANidine (ZANAFLEX) 4 Take 4 mg by mouth 04/12/20 Discontin MG tablet nightly as needed for 17 ued muscle spasms. hydroxychloroquine Take 200 mg by mouth 2 04/12/20 Discontin (PLAQUENIL) 200 mg tablet (two) times a day. 17 ued nabumetone (RELAFEN) 500 Take 750 mg by mouth 2 04/12/20 Discontin MG tablet (two) times a day. 17 ued methotrexate 2.5 MG TK 1 T PO Q SUNDAY 3 01/13/20 04/12/20 Discontin tablet 17 17 ued acetaminophen-codeine TK 1 T PO TID PRF PAIN 0 04/10/20 04/12/20 Discontin (TYLENOL WITH CODEINE #3) 17 17 ued 300-30 mg per tablet azithromycin (ZITHROMAX) TK 1 T PO QD 0 04/10/20 04/12/20 Discontin 500 MG tablet 17 17 ued nystatin (MYCOSTATIN) Take 1 tablet by mouth 3 07/20/19 Discontin 500,000 unit tablet (three) times a day as 18 ued needed. traMADol (ULTRAM) 50 mg Take 50 mg by mouth every 07/20/19 Discontin tablet 6 (six) hours as needed 18 ued for moderate pain. acetaminophen (TYLENOL) Take 650 mg by mouth 07/20/19 Discontin 325 MG tablet every 6 (six) hours as 18 ued needed. bisacodyl (DULCOLAX) 5 mg Take 10 mg by mouth 2 10/09/19 Discontin EC tablet (two) times a day as 18 ued needed for constipation. zinc oxide (BOUDREAUXS Apply 1 application 10/09/19 Discontin BUTT PASTE) 16 % ointment topically 2 (two) times a 18 ued day as needed (to sacral and dani area). phenyleph-min Insert 1 application into 10/09/19 Discontin oil-petrolatum the rectum 4 (four) times 18 ued 0.25-14-71.9 % ointment a day. diphenoxylate-atropine Take 1-2 tablets by mouth 10/09/19 Discontin (LOMOTIL) 2.5-0.025 mg every 4 (four) hours as 18 ued per tablet needed for diarrhea. fluticasone (FLONASE) 50 2 sprays by Each Nare 10/09/19 Discontin mcg/actuation nasal spray route every morning. 18 ued carvedilol (COREG) 6.25 Take 6.25 mg by mouth 2 04/20/20 Discontin MG tablet (two) times a day. (Hold 17 ued for SBP<110 or HR<60) DULoxetine (CYMBALTA) 30 Take 30 mg by mouth every 10/09/19 Discontin MG capsule 12 (twelve) hours. 18 ued folic acid (FOLVITE) 1 MG Take 1 mg by mouth every 07/20/19 Discontin tablet morning. 18 ued gabapentin (NEURONTIN) Take 400 mg by mouth 3 07/20/19 Discontin 400 mg capsule (three) times a day. 18 ued hydroxychloroquine Take 200 mg by mouth 2 07/20/19 Discontin (PLAQUENIL) 200 mg tablet (two) times a day. 18 ued predniSONE (DELTASONE) 20 Take 40 mg by mouth every 07/20/19 Discontin mg tablet morning. 18 ued traZODone (DESYREL) 50 MG Take 50 mg by mouth 01/07/20 Discontin tablet nightly. 18 ued acetaminophen-codeine Take 1 tablet by mouth 3 01/07/20 Discontin (TYLENOL WITH CODEINE #3) (three) times a day. 18 ued 300-30 mg per tablet valsartan (DIOVAN) 320 MG Take 320 mg by mouth 07/20/19 Discontin tablet every morning. 18 ued LEVOTHYROXINE SODIUM Take 200 mcg by mouth 10/09/19 Discontin (SYNTHROID ORAL) every morning. 18 ued psyllium husk, aspartame, Take 1 packet by mouth 10/09/19 Discontin 3.4 gram/5.8 gram powder every morning. 18 ued furosemide (LASIX) 20 mg Take 40 mg by mouth every 07/20/19 Discontin tablet morning. 18 ued apixaban (ELIQUIS) 2.5 mg Take 2.5 mg by mouth 2 07/20/19 Discontin tablet (two) times a day. 18 ued silver sulfadiazine Apply 1 application 07/20/19 Discontin (SILVADENE, SSD) 1 % topically 2 (two) times a 18 ued cream day. carvedilol (COREG) 12.5 Take 1 tablet (12.5 mg 60 tablet 0 04/19/20 05/19/20 MG tablet total) by mouth 2 (two) 17 17 times a day for 30 days. metroNIDAZOLE (FLAGYL) Take 1 tablet (500 mg 04/19/20 04/22/20 500 MG tabletIndications: total) by mouth 3 (three) 17 17 Pneumonia of right upper times a day for 3 days. lobe due to infectious organism (HCC) doxycycline (VIBRAMYCIN) Take 1 capsule (100 mg 04/19/20 04/22/20 100 MG capsule total) by mouth 2 (two) 17 17 times a day with meals for 3 days. acetaminophen (TYLENOL) Take 2 tablets (650 mg 07/20/19 08/19/19 325 MG tablet total) by mouth every 6 18 18 (six) hours as needed for mild pain or fever for up to 30 days. traMADol (ULTRAM) 50 mg Take 1 tablet (50 mg 07/20/19 07/27/19 tablet total) by mouth every 6 18 18 (six) hours as needed for moderate pain for up to 7 days. aluminum-magnesium Take 30 mL by mouth every 07/20/19 08/19/19 hydroxide (MAALOX) 8 (eight) hours as needed 18 18 200-200 mg/5 mL for heartburn for up to suspension 30 days. gabapentin (NEURONTIN) Take 1 capsule (400 mg 90 capsule 0 07/20/19 08/19/19 400 mg capsule total) by mouth 3 (three) 18 18 times a day for 30 days. fluconazole (DIFLUCAN) Take 1 tablet (200 mg 07/21/19 07/28/19 200 MG tablet total) by mouth daily for 18 18 7 days. sodium chloride 0.9 % Infuse 12.5 mg into a 1 mL 07/20/19 08/19/19 solution 10 mL with venous catheter every 6 18 18 promethazine 25 mg/mL (six) hours as needed for solution 12.5 mg nausea or vomiting for up injection to 30 days. valsartan (DIOVAN) 320 MG Take 1 tablet (320 mg 30 tablet 0 07/21/19 08/20/19 tablet total) by mouth every 18 18 morning for 30 days. hydroxychloroquine Take 1 tablet (200 mg 60 tablet 0 07/20/19 (PLAQUENIL) 200 mg tablet total) by mouth 2 (two) 18 18 times a day for 30 days. ipratropium-albuterol Take 3 mL by nebulization 360 mL 0 07/20/19 (DUO-NEB) 0.5-2.5 mg/mL every 6 (six) hours for 18 18 nebulizer 30 days. cefTRIAXone (ROCEPHIN) 1 Infuse 1 g into a venous 07/21/19 08/20/19 gram in 50 mL Add-[place] catheter daily for 30 18 18 days. apixaban (ELIQUIS) 2.5 mg Take 1 tablet (2.5 mg 30 tablet 0 07/21/19 08/20/19 tablet total) by mouth daily for 18 18 30 days. guaiFENesin (MUCINEX) 600 Take 1 tablet (600 mg 60 tablet 0 07/20/19 08/19/19 mg tablet extended total) by mouth 2 (two) 18 18 release 12hr times a day for 30 days. difluprednate (DUREZOL) Administer 1 drop to both 07/20/19 08/19/19 0.05 % drops eyes 2 (two) times a day 18 18 for 30 days. keTOROlac (ACULAR) 0.5 % Administer 1 drop to both 4.5 mL 0 07/20/19 08/19/19 ophthalmic solution eyes 3 (three) times a 18 18 day for 30 days. folic acid (FOLVITE) 1 MG Take 1 tablet (1 mg 30 tablet 0 07/21/19 08/20/19 tablet total) by mouth every 18 18 morning for 30 days. furosemide (LASIX) 10 Infuse 2 mL (20 mg total) 60 mL 0 07/21/1906/27 mg/mL injection into a venous catheter 18 18 daily for 30 days. azithromycin (ZITHROMAX) Take 2 tablets the first 6 tablet 0 07/20/19 07/24/19 250 MG tablet day, then 1 tablet daily 18 18 for 4 days. pantoprazole 4 mg/mL in Infuse 10 mL (40 mg 1 each 07/21/19 08/20/19 sodium chloride injection total) into a venous 18 18 catheter daily for 30 days. vancomycin 1,000 mg in Infuse 1,000 mg into a 1 each 0 07/20/1905/28 sodium chloride 0.9 % 250 venous catheter daily for 18 18 mL IVPB 30 days. nitroglycerin (NITROSTAT) Place 1 tablet (0.4 mg 90 tablet 12 08/19/19 0.4 MG SL tablet total) under the tongue 18 18 every 5 (five) minutes as needed for chest pain for up to 30 days. diclofenac (VOLTAREN) 1 % Apply 1 application 10/06/19 01/10/20 Discontin gel topically 2 (two) times a 18 18 ued day. furosemide (LASIX) 20 mg Take 20 mg by mouth 2 10/06/19 10/14/19 Discontin tablet (two) times a day. 18 18 ued gabapentin (NEURONTIN) Take 100 mg by mouth 10/08/19 01/07/20 Discontin 100 mg capsule nightly. 18 18 ued loperamide (IMODIUM) 2 mg Take 2 mg by mouth every 10/06/19 01/07/20 Discontin capsule 6 (six) hours as needed. 18 18 ued spironolactone Take 25 mg by mouth every 10/08/19 01/07/20 Discontin (ALDACTONE) 25 MG tablet morning. 18 18 ued valsartan (DIOVAN) 40 MG Take 20 mg by mouth every 10/06/19 10/14/19 Discontin tablet morning. 18 18 ued magnesium (MAGTAB) 84 mg Take 84 mg by mouth 2 01/07/20 Discontin tablet extended release (two) times a day with 18 ued CR tablet meals. PT takes with lunch and dinner ergocalciferol (VITAMIN Take 50,000 Units by 01/07/20 Discontin D2) 50,000 unit capsule mouth once a week. PT 18 ued takes on Sunday turmeric root extract 500 Take 1 capsule by mouth 2 01/07/20 Discontin mg capsule (two) times a day. 18 ued acetaminophen (TYLENOL Take 650 mg by mouth 01/10/20 Discontin ARTHRITIS PAIN) 650 MG 8 every 4 (four) hours as 18 ued hr tablet needed for mild pain. hydrocortisone Insert 25 mg into the 01/10/20 Discontin (ANUSOL-HC) 25 mg rectum 3 (three) times a 18 ued suppository day as needed for hemorrhoids. ALPRAZolam (XANAX) 0.5 MG Take 1 tablet (0.5 mg 10/14/19 10/24/19 tablet total) by mouth nightly 18 18 as needed for anxiety for up to 10 days. amIODarone (PACERONE) 200 Take 1 tablet (200 mg 60 tablet 0 10/14/19 11/13/19 MG tablet total) by mouth every 12 18 18 (twelve) hours for 30 days. Lactobacillus Take 1 tablet by mouth 3 90 tablet 0 10/14/19 acidoph-L.bulgar (three) times a day for 18 18 (FLORANEX) 1 million cell 30 days. tablet ondansetron ODT Take 1 tablet (4 mg 10/14/19 11/13/19 (ZOFRAN-ODT) 4 MG total) by mouth every 8 18 18 disintegrating tablet (eight) hours as needed for nausea or vomiting for up to 30 days. hydrALAZINE (APRESOLINE) Infuse 0.5 mL (10 mg 1 mL 10/14/19 11/13/19 20 mg/mL injection total) into a venous 18 18 catheter every 3 (three) hours as needed (SBP>170) for up to 30 days. ceFTAZidime-avibactam Infuse 0.94 g into a 1 each 0 10/14/19 (AVYCAZ) 2.5 gram in 100 venous catheter every 12 18 18 mL (RESTRICTED) (twelve) hours for 30 days. sodium chloride 0.9% Infuse 350 mg into a 10/14/19 10/24/19 parenteral solution 100 venous catheter daily for 18 18 mL with DAPTOmycin (PF) 10 days. 500 mg recon soln 350 mg furosemide (LASIX) 10 Infuse 2 mL (20 mg total) 120 mL 0 10/14/19 mg/mL injection into a venous catheter 2 18 18 (two) times a day for 30 days. vancomycin (VANCOCIN) 125 Take 5 mL (250 mg total) 10/14/19 10/24/19 mg/2.5 mL syringe by mouth 4 (four) times a 18 18 day for 10 days. losartan (COZAAR) 25 MG Take 0.5 tablets (12.5 mg 15 tablet 0 11/14/19 tablet total) by mouth daily for 18 18 30 days. nitrofurantoin, Take 1 capsule (100 mg 14 capsule 0 01/07/20 macrocrystal-monohydrate, total) by mouth 2 (two) 18 18 (MACROBID) 100 MG capsule times a day for 7 days. ALPRAZolam (XANAX) 0.5 MG Take 0.5 mg by mouth 3 01/10/20 Discontin tablet (three) times a day as 18 ued needed for anxiety. clotrimazole (LOTRIMIN) 1 Apply 1 application 01/10/20 Discontin % cream topically 2 (two) times a 18 ued day. saliva substitute combo 1 spray by mucous 01/10/20 Discontin no.12 spray with pump membrane route every 12 18 ued (twelve) hours as needed. tiZANidine (ZANAFLEX) 2 Take 2 mg by mouth every 01/10/20 Discontin MG tablet 8 (eight) hours as needed 18 ued for muscle spasms. Active Problems Problem Noted Date Acute renal failure (HCC) 10/08/2017 Pneumonia of right lower lobe due to infectious organism (HCC) 07/08/2017 Pneumonia due to infectious organism 04/12/2017 ACS (acute coronary syndrome) ([facility]) 12/28/2016 Encounters Date Type Specialty Care Team Description 01/09/2018 Emergency Emergency Medicine Jennifer Krause, Fecal impaction (Primary MD Dx); Hemorrhoids, unspecified hemorrhoid type; Rectal pain 01/06/2018 Emergency Emergency Medicine Micha Nickerson DO Fecal impaction (Primary Dx); Urinary tract infection associated with indwelling urethral catheter, initial encounter 10/08/2017 [facility] General Internal Medicine Micha Nickerson DO Acute renal failure, - Encounter Natalie Alexandra MD unspecified acute renal 10/13/2017 failure type (Primary Dx); Acute CVA (cerebrovascular accident); Dehydration 07/19/2017 Procedure Pass Gastroenterology 07/19/2017 Surgery Gastroenterology Carley Gerardo MD BRONCHOSCOPY 07/16/2017 Procedure Pass Gastroenterology 07/16/2017 Surgery Gastroenterology Carley Gerardo MD BRONCHOSCOPY 07/13/2017 [facility] Ruben Higgins MD Encounter 07/12/2017 Procedure Pass Gastroenterology 07/12/2017 Surgery Gastroenterology Carley Gerardo MD BRONCHOSCOPY 07/08/2017 [facility] General Internal Medicine Falguni Diaz, Pneumonia of right lower - Encounter MD lobe due to infectious 07/20/2017 Marin Sexton MD organism (Primary Dx); Beatriz Philippe Shortness of breath; MD Aleja ACS (acute coronary syndrome) 04/12/2017 [facility] Obstetrics and Gynecology Sterling Felder Pneumonia due to - Encounter MD John infectious organism, 04/20/2017 Greg Nielson MD unspecified laterality, unspecified part of lung (Primary Dx); Compression fracture of body of thoracic vertebra; Pneumonia of right upper lobe due to infectious organism after 03/21/2017 Family History Medical History Relation Name Comments Lung cancer Father Hypertension Mother Stroke Mother Relation Name Status Comments Father Mother Social History Tobacco Use Types Packs/Day Years Used Date Former Smoker Cigarettes 2 15 Quit: 01/05/1987 Smokeless Tobacco: Never Used Tobacco Cessation: Counseling Given: Yes Alcohol Use Drinks/Week oz/Week Comments Yes 3 Glasses of 1.8 socially wine Sex Assigned at Date Recorded Not on file Last Filed Vital Signs Vital Sign Reading Time Taken Blood Pressure 143/67 01/09/2018 7:06 PM CDT Pulse 70 01/09/2018 7:06 PM CDT Temperature 36.7 C (98.1 F) 01/09/2018 2:28 PM CDT Respiratory Rate 20 01/09/2018 5:57 PM CDT Oxygen Saturation 96% 01/09/2018 7:06 PM CDT Inhaled Oxygen - - Concentration Weight 88.5 kg (195 lb) 01/09/2018 2:28 PM CDT Height 170.2 cm (5' 7") 01/06/2018 5:12 PM CDT Body Mass Index 30.54 01/09/2018 2:28 PM CDT Plan of Treatment Health Maintenance Due Date Last Done Comments BREAST CANCER SCREENING 1994 SHINGRIX VACCINE (#1) 1994 ZOSTER VACCINE 2004 PNEUMOCOCCAL 2009 POLYSACCHARIDE VACCINE AGE 65 AND OVER PNEUMOCOCCAL-13 2009 INFLUENZA VACCINE 02/06/2018 COLON CANCER SCREENING 10/11/2027 10/10/2017 Implants Implanted Type Area Engravings Polisher Device Expiration Model / Identifier Date Serial / Lot Defibrillator Card [employer] - [id number] - Defibrilla [employer] [facility] - [id number] / [id number] tor ICD CARDIAC RYHTYM [id number] / Implanted: Qty: 1 on 03/16/2016 by Devices [facility] [id number] Aleksandar Philippe MD [employer] Procedures Procedure Name Priority Date/Time Associated Diagnosis Comments TRANSFUSE RED BLOOD CELLS Routine 03/13/2018 5:52 PM CDT XR ABDOMEN 1 VW STAT 01/09/2018 Results for this 4:58 PM CDT procedure are in the results section. ZZESTIMATED GFR STAT 01/09/2018 Results for this 4:57 PM CDT procedure are in the results section. LIPASE LEVEL STAT 01/09/2018 Results for this 4:57 PM CDT procedure are in the results section. LACTIC ACID LEVEL, SEPSIS STAT 01/09/2018 Results for this - NOW AND REPEAT 2X EVERY 4:57 PM CDT procedure are in the 3 HOURS results section. HEPATIC FUNCTION PANEL STAT 01/09/2018 Results for this 4:57 PM CDT procedure are in the results section. BASIC METABOLIC PANEL STAT 01/09/2018 Results for this 4:57 PM CDT procedure are in the results section. HC COMPLETE BLD COUNT STAT 01/09/2018 Results for this W/AUTO DIFF 4:57 PM CDT procedure are in the results section. GENERAL Routine 01/09/2018 Results for this 3:12 PM CDT procedure are in the results section. URINALYSIS SCREEN AND STAT 01/06/2018 Results for this MICROSCOPY, WITH REFLEX 7:18 PM CDT procedure are in the TO CULTURE results section. GRAM STAIN STAT 01/06/2018 Results for this 7:18 PM CDT procedure are in the results section. URINE CULTURE STAT 01/06/2018 Results for this 7:18 PM CDT procedure are in the results section. CT ABDOMEN PELVIS W STAT 01/06/2018 Results for this CONTRAST 7:03 PM CDT procedure are in the results section. ZZESTIMATED GFR STAT 01/06/2018 Results for this 6:03 PM CDT procedure are in the results section. LIPASE LEVEL STAT 01/06/2018 Results for this 6:03 PM CDT procedure are in the results section. COMPREHENSIVE METABOLIC STAT 01/06/2018 Results for this PANEL 6:03 PM CDT procedure are in the results section. PARTIAL THROMBOPLASTIN STAT 01/06/2018 Results for this TIME (PTT) 6:03 PM CDT procedure are in the results section. PROTHROMBIN TIME WITH INR STAT 01/06/2018 Results for this 6:03 PM CDT procedure are in the results section. HC COMPLETE BLD COUNT STAT 01/06/2018 Results for this W/AUTO DIFF 6:03 PM CDT procedure are in the results section. SMEAR REVIEW Routine 10/13/2017 Results for this 5:30 AM CDT procedure are in the results section. ZZESTIMATED GFR Routine 10/13/2017 Results for this 5:30 AM CDT procedure are in the results section. BASIC METABOLIC PANEL Routine 10/13/2017 Results for this 5:30 AM CDT procedure are in the results section. HC COMPLETE BLD COUNT Routine 10/13/2017 Results for this W/AUTO DIFF 5:30 AM CDT procedure are in the results section. SMEAR REVIEW Routine 10/12/2017 Results for this 5:00 AM CDT procedure are in the results section. ZZESTIMATED GFR Routine 10/12/2017 Results for this 5:00 AM CDT procedure are in the results section. HC COMPLETE BLD COUNT Routine 10/12/2017 Results for this W/AUTO DIFF 5:00 AM CDT procedure are in the results section. BASIC METABOLIC PANEL Routine 10/12/2017 Results for this 5:00 AM CDT procedure are in the results section. XR CHEST 1 VW PORTABLE Routine 10/11/2017 Results for this 5:24 AM CDT procedure are in the results section. SMEAR REVIEW Routine 10/11/2017 Results for this 3:20 AM CDT procedure are in the results section. ZZESTIMATED GFR Routine 10/11/2017 Results for this 3:20 AM CDT procedure are in the results section. LIPID PANEL Routine 10/11/2017 Results for this 3:20 AM CDT procedure are in the results section. LACTIC ACID LEVEL Routine 10/11/2017 Results for this 3:20 AM CDT procedure are in the results section. BASIC METABOLIC PANEL Routine 10/11/2017 Results for this 3:20 AM CDT procedure are in the results section. HC COMPLETE BLD COUNT Routine 10/11/2017 Results for this W/AUTO DIFF 3:20 AM CDT procedure are in the results section. XR CHEST 1 VW PORTABLE Routine 10/10/2017 Results for this 2:15 PM CDT procedure are in the results section. URINALYSIS SCREEN AND Routine 10/10/2017 Results for this MICROSCOPY, WITH REFLEX 5:25 AM CDT procedure are in the TO CULTURE results section. GRAM STAIN Routine 10/10/2017 Results for this 5:25 AM CDT procedure are in the results section. URINE CULTURE Routine 10/10/2017 Results for this 5:25 AM CDT procedure are in the results section. SMEAR REVIEW Routine 10/10/2017 Results for this 4:45 AM CDT procedure are in the results section. ZZESTIMATED GFR Routine 10/10/2017 Results for this 4:45 AM CDT procedure are in the results section. MAGNESIUM LEVEL Routine 10/10/2017 Results for this 4:45 AM CDT procedure are in the results section. CBC WITH PLATELET AND Routine 10/10/2017 Results for this DIFFERENTIAL 4:45 AM CDT procedure are in the results section. BASIC METABOLIC PANEL Routine 10/10/2017 Results for this 4:45 AM CDT procedure are in the results section. OCCULT BLOOD, STOOL Routine 10/10/2017 Results for this 4:00 AM CDT procedure are in the results section. POC GLUCOSE Routine 10/09/2017 Results for this 8:14 PM CDT procedure are in the results section. ECG 12-LEAD Routine 10/09/2017 Results for this 7:29 PM CDT procedure are in the results section. HEMOGLOBIN & HEMATOCRIT Routine 10/09/2017 Results for this 4:15 PM CDT procedure are in the results section. US CAROTID DUPLEX Routine 10/09/2017 Results for this BILATERAL 12:00 PM CDT procedure are in the results section. ECHOCARDIOGRAM WITH Routine 10/09/2017 Results for this AGITATED SALINE ([id number]) 10:30 AM CDT procedure are in the results section. LIPID PANEL Routine 10/09/2017 Results for this 4:45 AM CDT procedure are in the results section. SMEAR REVIEW Routine 10/09/2017 Results for this 4:45 AM CDT procedure are in the results section. IONIZED CALCIUM Routine 10/09/2017 Results for this 4:45 AM CDT procedure are in the results section. PHOSPHORUS LEVEL Routine 10/09/2017 Results for this 4:45 AM CDT procedure are in the results section. MAGNESIUM LEVEL Routine 10/09/2017 Results for this 4:45 AM CDT procedure are in the results section. ZZESTIMATED GFR Routine 10/09/2017 Results for this 4:45 AM CDT procedure are in the results section. BASIC METABOLIC PANEL Routine 10/09/2017 Results for this 4:45 AM CDT procedure are in the results section. HC COMPLETE BLD COUNT Routine 10/09/2017 Results for this W/AUTO DIFF 4:45 AM CDT procedure are in the results section. TROPONIN Timed 10/08/2017 Results for this 11:50 PM CDT procedure are in the results section. LACTIC ACID LEVEL, SEPSIS Timed 10/08/2017 Results for this - NOW AND REPEAT 2X EVERY 11:05 PM CDT procedure are in the 3 HOURS results section. ARTERIAL BLOOD GAS Routine 10/08/2017 Results for this 8:38 PM CDT procedure are in the results section. ZZESTIMATED GFR Routine 10/08/2017 Results for this 7:50 PM CDT procedure are in the results section. BASIC METABOLIC PANEL Routine 10/08/2017 Results for this 7:50 PM CDT procedure are in the results section. LACTIC ACID LEVEL, SEPSIS Timed 10/08/2017 Results for this - NOW AND REPEAT 2X EVERY 7:50 PM CDT procedure are in the [address] HEAD WO CONTRAST STAT 10/08/2017 Results for this 5:47 PM CDT procedure are in the results section. GASTROINTESTINAL PANEL Routine 10/08/2017 Results for this 5:40 PM CDT procedure are in the results section. XR CHEST 1 VW STAT 10/08/2017 Results for this 5:29 PM CDT procedure are in the results section. PREPARE RBC Timed 10/08/2017 Results for this 4:04 PM CDT procedure are in the results section. SMEAR REVIEW STAT 10/08/2017 Results for this 4:04 PM CDT procedure are in the results section. ZZESTIMATED GFR STAT 10/08/2017 Results for this 4:04 PM CDT procedure are in the results section. B NATRIURETIC PEPTIDE STAT 10/08/2017 Results for this 4:04 PM CDT procedure are in the results section. TROPONIN STAT 10/08/2017 Results for this 4:04 PM CDT procedure are in the results section. CREATINE KINASE, TOTAL STAT 10/08/2017 Results for this (CPK) 4:04 PM CDT procedure are in the results section. LACTIC ACID LEVEL, SEPSIS STAT 10/08/2017 Results for this - NOW AND REPEAT 2X EVERY 4:04 PM CDT procedure are in the 3 HOURS results section. COMPREHENSIVE METABOLIC STAT 10/08/2017 Results for this PANEL 4:04 PM CDT procedure are in the results section. TYPE AND SCREEN Routine 10/08/2017 Results for this 4:04 PM CDT procedure are in the results section. PARTIAL THROMBOPLASTIN STAT 10/08/2017 Results for this TIME (PTT) 4:04 PM CDT procedure are in the results section. PROTHROMBIN TIME WITH INR STAT 10/08/2017 Results for this 4:04 PM CDT procedure are in the results section. HC COMPLETE BLD COUNT STAT 10/08/2017 Results for this W/AUTO DIFF 4:04 PM CDT procedure are in the results section. URINALYSIS SCREEN AND STAT 10/08/2017 Results for this MICROSCOPY, WITH REFLEX 3:29 PM CDT procedure are in the TO CULTURE results section. GRAM STAIN STAT 10/08/2017 Results for this 3:29 PM CDT procedure are in the results section. URINE CULTURE STAT 10/08/2017 Results for this 3:29 PM CDT procedure are in the results section. ECG 12-LEAD STAT 10/08/2017 Results for this 3:24 PM CDT procedure are in the results section. XR CHEST 1 VW PORTABLE STAT 10/08/2017 Results for this 3:22 PM CDT procedure are in the results section. [place] CRITICAL CARE, E/M Routine 10/08/2017 Results for this 30-74 MINUTES 3:00 PM CDT procedure are in the results section. NJ CRITICAL CARE, E/M Routine 10/08/2017 Results for this 30-74 MINUTES 3:00 PM CDT procedure are in the results section. NJ INSERT NON-TUNNEL CV Routine 10/08/2017 Results for this CATH 3:00 PM CDT procedure are in the results section. VANCOMYCIN LEVEL, RANDOM Timed 07/20/2017 Results for this 1:40 PM [employer] [employer] [facility] procedure are in the results section. HEMOGLOBIN & HEMATOCRIT STAT 07/20/2017 Results for this 1:30 PM [employer] [employer] procedure are in the results section. MANUAL DIFFERENTIAL Routine 07/20/2017 Results for this 6:45 AM [employer] [employer] procedure are in the results section. ZZESTIMATED GFR Routine 07/20/2017 Results for this 6:45 AM [employer] procedure are in the results section. HEPATIC FUNCTION PANEL Routine 07/20/2017 Results for this 6:45 AM [employer] procedure are in the results section. BASIC METABOLIC PANEL Routine 07/20/2017 Results for this 6:45 AM [employer] procedure are in the results section. CBC WITH PLATELET AND Routine 07/20/2017 Results for this DIFFERENTIAL 6:45 AM [employer] procedure are in the results section. VANCOMYCIN LEVEL, RANDOM Timed 07/19/2017 Results for this 6:15 PM [employer] procedure are in the results section. BRONCHOSCOPY 07/19/2017 Pneumonia of right lower 11:30 AM [employer] [employer] [facility] lobe due to infectious organism VANCOMYCIN LEVEL, RANDOM Routine 07/19/2017 Results for this 6:11 AM [employer] procedure are in the results section. VANCOMYCIN LEVEL, TROUGH Timed 07/18/2017 Results for this 12:20 PM [employer] procedure are in the results section. URINALYSIS SCREEN AND Routine 07/18/2017 Results for this MICROSCOPY, WITH REFLEX 11:05 AM [employer] [employer] [facility] procedure are in the TO CULTURE results section. ZZESTIMATED GFR Routine 07/18/2017 Results for this 7:30 AM [employer] procedure are in the results section. PROTHROMBIN TIME WITH INR Routine 07/18/2017 Results for this 7:30 AM [employer] procedure are in the results section. HEPATIC FUNCTION PANEL Routine 07/18/2017 Results for this 7:30 AM [employer] [facility] procedure are in the results section. CBC WITH PLATELET AND Routine 07/18/2017 Results for this DIFFERENTIAL 7:30 AM [employer] procedure are in the results section. BASIC METABOLIC PANEL Routine 07/18/2017 Results for this 7:30 AM [employer] procedure are in the results section. CT CHEST WO CONTRAST STAT 07/17/2017 Results for this 5:27 PM [employer] procedure are in the results section. AFB STAIN Routine 07/17/2017 Results for this 11:59 AM [employer] procedure are in the results section. AFB CULTURE Routine 07/17/2017 Results for this 11:59 AM [employer] procedure are in the results section. MANUAL DIFFERENTIAL Routine 07/17/2017 Results for this 6:42 AM [employer] procedure are in the results section. ZZESTIMATED GFR Routine 07/17/2017 Results for this 6:42 AM [employer] procedure are in the results section. BASIC METABOLIC PANEL Routine 07/17/2017 Results for this 6:42 AM [employer] procedure are in the results section. CBC WITH PLATELET AND Routine 07/17/2017 Results for this DIFFERENTIAL 6:42 AM [employer] procedure are in the results section. AFB CULTURE Routine 07/16/2017 Results for this 11:54 PM [employer] procedure are in the results section. AFB STAIN Routine 07/16/2017 Results for this 11:54 PM [employer] procedure are in the results section. VANCOMYCIN LEVEL, TROUGH Routine 07/16/2017 Results for this 3:20 PM [employer] procedure are in the results section. AFB STAIN Routine 07/16/2017 Results for this 1:52 PM [employer] procedure are in the results section. FUNGUS SMEAR Routine 07/16/2017 Results for this 1:52 PM [employer] [facility] procedure are in the results section. FUNGUS CULTURE Routine 07/16/2017 Results for this 1:52 PM [employer] procedure are in the results section. AFB CULTURE Routine 07/16/2017 Results for this 1:52 PM [employer] procedure are in the results section. GRAM STAIN Routine 07/16/2017 Results for this 1:52 PM [employer] procedure are in the results section. RESPIRATORY CULTURE Routine 07/16/2017 Results for this 1:52 PM [employer] [employer] [facility] procedure are in the results section. BRONCHOSCOPY 07/16/2017 ACS (acute coronary 1:30 PM [employer] [employer] [facility] syndrome) CYTOLOGY Routine 07/16/2017 Results for this (NON-GYNECOLOGICAL) 9:28 AM [employer] [employer] [facility] procedure are in the REQUEST results section. MANUAL DIFFERENTIAL Routine 07/16/2017 Results for this 8:18 AM [employer] [facility] procedure are in the results section. ZZESTIMATED GFR Routine 07/16/2017 Results for this 8:18 AM [employer] procedure are in the results section. BASIC METABOLIC PANEL Routine 07/16/2017 Results for this 8:18 AM [employer] procedure are in the results section. CBC WITH PLATELET AND Routine 07/16/2017 Results for this DIFFERENTIAL 8:18 AM [employer] [facility] procedure are in the results section. XR CHEST 1 VW Routine 07/14/2017 Results for this 7:17 PM [employer] procedure are in the results section. AFB CULTURE Timed 07/14/2017 Results for this 6:11 PM [employer] procedure are in the results section. AFB STAIN Timed 07/14/2017 Results for this 6:11 PM [employer] procedure are in the results section. MANUAL DIFFERENTIAL Routine 07/14/2017 Results for this 6:12 AM [employer] [facility] procedure are in the results section. ZZESTIMATED GFR Routine 07/14/2017 Results for this 6:12 AM [employer] procedure are in the results section. BASIC METABOLIC PANEL Routine 07/14/2017 Results for this 6:12 AM [employer] [facility] procedure are in the results section. CBC WITH PLATELET AND Routine 07/14/2017 Results for this DIFFERENTIAL 6:12 AM [employer] [facility] procedure are in the results section. POC GLUCOSE Routine 07/12/2017 Results for this 1:54 PM [employer] [facility] procedure are in the results section. GRAM STAIN Routine 07/12/2017 Results for this 12:37 PM [employer] procedure are in the results section. RESPIRATORY CULTURE Routine 07/12/2017 Results for this 12:37 PM [employer] [facility] procedure are in the results section. BRONCHOSCOPY 07/12/2017 Pneumonia of right lower 12:00 PM [employer] [employer] [facility] lobe due to infectious organism CYTOLOGY Routine 07/12/2017 Results for this (NON-GYNECOLOGICAL) 9:17 AM [employer] [employer] [facility] procedure are in the REQUEST results section. MANUAL DIFFERENTIAL Routine 07/11/2017 Results for this 9:38 AM [employer] procedure are in the results section. ZZESTIMATED GFR Routine 07/11/2017 Results for this 9:38 AM [employer] procedure are in the results section. BASIC METABOLIC PANEL Routine 07/11/2017 Results for this 9:38 AM [employer] procedure are in the results section. CBC WITH PLATELET AND Routine 07/11/2017 Results for this DIFFERENTIAL 9:38 AM [employer] [facility] procedure are in the results section. CT CHEST WO CONTRAST Routine 07/11/2017 Results for this 7:23 AM [employer] procedure are in the results section. MANUAL DIFFERENTIAL Routine 07/10/2017 Results for this 5:05 AM [employer] procedure are in the results section. ZZESTIMATED GFR Routine 07/10/2017 Results for this 5:05 AM [employer] procedure are in the results section. BASIC METABOLIC PANEL Routine 07/10/2017 Results for this 5:05 AM [employer] procedure are in the results section. CBC WITH PLATELET AND Routine 07/10/2017 Results for this DIFFERENTIAL 5:05 AM [employer] procedure are in the results section. MANUAL DIFFERENTIAL Routine 07/09/2017 Results for this 2:59 PM [employer] procedure are in the results section. ZZESTIMATED GFR Routine 07/09/2017 Results for this 2:59 PM [employer] procedure are in the results section. BASIC METABOLIC PANEL Routine 07/09/2017 Results for this 2:59 PM [employer] procedure are in the results section. CBC WITH PLATELET AND Routine 07/09/2017 Results for this DIFFERENTIAL 2:59 PM [employer] procedure are in the results section. VANCOMYCIN LEVEL, RANDOM Routine 07/09/2017 Results for this 9:50 AM [employer] [facility] procedure are in the results section. ZZESTIMATED GFR STAT 07/08/2017 Results for this 7:54 PM [employer] procedure are in the results section. BASIC METABOLIC PANEL STAT 07/08/2017 Results for this 7:54 PM [employer] procedure are in the results section. TROPONIN Timed 07/08/2017 Results for this 7:54 PM [employer] procedure are in the results section. ECG ED PRELIMINARY Routine 07/08/2017 Results for this INTERPRETATION 6:40 PM [employer] [facility] procedure are in the results section. INFLUENZA ANTIGEN Routine 07/08/2017 Results for this 6:30 PM [employer] procedure are in the results section. LACTIC ACID LEVEL Timed 07/08/2017 Results for this 6:13 PM [employer] [facility] procedure are in the results section. BLOOD CULTURE, AEROBIC & Routine 07/08/2017 Results for this ANAEROBIC 6:13 PM [employer] [employer] [facility] procedure are in the results section. BLOOD CULTURE, AEROBIC & Routine 07/08/2017 Results for this ANAEROBIC 6:09 PM [employer] [facility] procedure are in the results section. XR CHEST 2 VW STAT 07/08/2017 Results for this 5:11 PM [employer] [facility] procedure are in the results section. MANUAL DIFFERENTIAL STAT 07/08/2017 Results for this 3:25 PM [employer] procedure are in the results section. ZZESTIMATED GFR STAT 07/08/2017 Results for this 3:25 PM [employer] procedure are in the results section. B NATRIURETIC PEPTIDE STAT 07/08/2017 Results for this 3:25 PM [employer] [facility] procedure are in the results section. TROPONIN STAT 07/08/2017 Results for this 3:25 PM [employer] [facility] procedure are in the results section. CREATINE KINASE, TOTAL STAT 07/08/2017 Results for this (CPK) 3:25 PM [employer] [employer] [facility] procedure are in the results section. COMPREHENSIVE METABOLIC STAT 07/08/2017 Results for this PANEL 3:25 PM [employer] [facility] procedure are in the results section. PROTHROMBIN TIME WITH INR STAT 07/08/2017 Results for this 3:25 PM [employer] procedure are in the results section. CBC WITH PLATELET AND STAT 07/08/2017 Results for this DIFFERENTIAL 3:25 PM [employer] [facility] procedure are in the results section. ECG 12-LEAD STAT 07/08/2017 Results for this 2:48 PM [employer] [facility] procedure are in the results section. MANUAL DIFFERENTIAL Routine 04/20/2017 Results for this 4:30 AM CDT procedure are in the results section. ZZESTIMATED GFR Routine 04/20/2017 Results for this 4:30 AM CDT procedure are in the results section. PHOSPHORUS LEVEL Routine 04/20/2017 Results for this 4:30 AM CDT procedure are in the results section. MAGNESIUM LEVEL Routine 04/20/2017 Results for this 4:30 AM CDT procedure are in the results section. CBC WITH PLATELET AND Routine 04/20/2017 Results for this DIFFERENTIAL 4:30 AM CDT procedure are in the results section. BASIC METABOLIC PANEL Routine 04/20/2017 Results for this 4:30 AM CDT procedure are in the results section. C-REACTIVE PROTEIN Routine 04/19/2017 Results for this 11:55 AM CDT procedure are in the results section. SEDIMENTATION RATE Routine 04/19/2017 Results for this 11:55 AM CDT procedure are in the results section. MANUAL DIFFERENTIAL Routine 04/19/2017 Results for this 5:30 AM CDT procedure are in the results section. CBC WITH PLATELET AND Routine 04/19/2017 Results for this DIFFERENTIAL 5:30 AM CDT procedure are in the results section. ZZESTIMATED GFR Routine 04/19/2017 Results for this 4:00 AM CDT procedure are in the results section. PHOSPHORUS LEVEL Routine 04/19/2017 Results for this 4:00 AM CDT procedure are in the results section. MAGNESIUM LEVEL Routine 04/19/2017 Results for this 4:00 AM CDT procedure are in the results section. BASIC METABOLIC PANEL Routine 04/19/2017 Results for this 4:00 AM CDT procedure are in the results section. ZZESTIMATED GFR Routine 04/18/2017 Results for this 3:49 AM CDT procedure are in the results section. PHOSPHORUS LEVEL Routine 04/18/2017 Results for this 3:49 AM CDT procedure are in the results section. MAGNESIUM LEVEL Routine 04/18/2017 Results for this 3:49 AM CDT procedure are in the results section. BASIC METABOLIC PANEL Routine 04/18/2017 Results for this 3:49 AM CDT procedure are in the results section. MANUAL DIFFERENTIAL Routine 04/18/2017 Results for this 3:30 AM CDT procedure are in the results section. CBC WITH PLATELET AND Routine 04/18/2017 Results for this DIFFERENTIAL 3:30 AM CDT procedure are in the results section. CT LOWER EXTREMITY W Routine 04/17/2017 Results for this CONTRAST LEFT 6:00 PM CDT procedure are in the results section. URIC ACID LEVEL Routine 04/17/2017 Results for this 5:50 PM CDT procedure are in the results section. MANUAL DIFFERENTIAL Routine 04/17/2017 Results for this 4:40 AM CDT procedure are in the results section. ZZESTIMATED GFR Routine 04/17/2017 Results for this 4:40 AM CDT procedure are in the results section. CBC WITH PLATELET AND Routine 04/17/2017 Results for this DIFFERENTIAL 4:40 AM CDT procedure are in the results section. PHOSPHORUS LEVEL Routine 04/17/2017 Results for this 4:40 AM CDT procedure are in the results section. MAGNESIUM LEVEL Routine 04/17/2017 Results for this 4:40 AM CDT procedure are in the results section. BASIC METABOLIC PANEL Routine 04/17/2017 Results for this 4:40 AM CDT procedure are in the results section. XR ANKLE 3+ VW LEFT Routine 04/16/2017 Results for this 4:34 PM CDT procedure are in the results section. XR CHEST 2 VW Routine 04/16/2017 Results for this 4:34 PM CDT procedure are in the results section. MANUAL DIFFERENTIAL Routine 04/16/2017 Results for this 5:20 AM CDT procedure are in the results section. CBC WITH PLATELET AND Routine 04/16/2017 Results for this DIFFERENTIAL 5:20 AM CDT procedure are in the results section. ZZESTIMATED GFR Routine 04/16/2017 Results for this 4:00 AM CDT procedure are in the results section. PHOSPHORUS LEVEL Routine 04/16/2017 Results for this 4:00 AM CDT procedure are in the results section. MAGNESIUM LEVEL Routine 04/16/2017 Results for this 4:00 AM CDT procedure are in the results section. BASIC METABOLIC PANEL Routine 04/16/2017 Results for this 4:00 AM CDT procedure are in the results section. SALMONELLA/SHIGELLA Routine 04/15/2017 Results for this CULTURE 2:14 PM CDT procedure are in the results section. GASTROINTESTINAL PANEL Routine 04/15/2017 Results for this 2:14 PM CDT procedure are in the results section. ZZESTIMATED GFR Routine 04/15/2017 Results for this 5:15 AM CDT procedure are in the results section. MAGNESIUM LEVEL Routine 04/15/2017 Results for this 5:15 AM CDT procedure are in the results section. PHOSPHORUS LEVEL Routine 04/15/2017 Results for this 5:15 AM CDT procedure are in the results section. BASIC METABOLIC PANEL Routine 04/15/2017 Results for this 5:15 AM CDT procedure are in the results section. MANUAL DIFFERENTIAL Routine 04/15/2017 Results for this 4:30 AM CDT procedure are in the results section. CBC WITH PLATELET AND Routine 04/15/2017 Results for this DIFFERENTIAL 4:30 AM CDT procedure are in the results section. ECG ED PRELIMINARY Routine 04/14/2017 Results for this INTERPRETATION 6:08 PM CDT procedure are in the results section. VANCOMYCIN LEVEL, TROUGH Timed 04/14/2017 Results for this 2:30 PM CDT procedure are in the results section. IMMUNOFIXATION, SERUM Routine 04/14/2017 Results for this 4:50 AM CDT procedure are in the results section. THYROID STIMULATING Routine 04/14/2017 Results for this HORMONE 4:50 AM CDT procedure are in the results section. TOTAL IRON BINDING Routine 04/14/2017 Results for this CAPACITY 4:50 AM CDT procedure are in the results section. VITAMIN B12 LEVEL Routine 04/14/2017 Results for this 4:50 AM CDT procedure are in the results section. RETICULOCYTE COUNT Routine 04/14/2017 Results for this 4:50 AM CDT procedure are in the results section. FERRITIN LEVEL Routine 04/14/2017 Results for this 4:50 AM CDT procedure are in the results section. SERUM ELECTROPHORESIS Routine 04/14/2017 Results for this 4:50 AM CDT procedure are in the results section. B NATRIURETIC PEPTIDE Routine 04/14/2017 Results for this 4:50 AM CDT procedure are in the results section. CLOSTRIDIUM DIFFICILE Routine 04/13/2017 Results for this TOXIN 3:19 PM CDT procedure are in the results section. HC COMPLETE BLD COUNT Routine 04/13/2017 Results for this W/AUTO DIFF 4:30 AM CDT procedure are in the results section. ZZESTIMATED GFR Routine 04/13/2017 Results for this 4:00 AM CDT procedure are in the results section. PHOSPHORUS LEVEL Routine 04/13/2017 Results for this 4:00 AM CDT procedure are in the results section. MAGNESIUM LEVEL Routine 04/13/2017 Results for this 4:00 AM CDT procedure are in the results section. BASIC METABOLIC PANEL Routine 04/13/2017 Results for this 4:00 AM CDT procedure are in the results section. CHLORIDE LEVEL, URINE, Routine 04/12/2017 Results for this RANDOM 11:30 PM CDT procedure are in the results section. CREATININE LEVEL, URINE, Routine 04/12/2017 Results for this RANDOM 11:30 PM CDT procedure are in the results section. SODIUM LEVEL, URINE, Routine 04/12/2017 Results for this RANDOM 11:30 PM CDT procedure are in the results section. UREA NITROGEN, URINE, Routine 04/12/2017 Results for this RANDOM 11:30 PM CDT procedure are in the results section. STREPTOCOCCUS PNEUMONIAE Routine 04/12/2017 Results for this URINARY ANTIGEN 11:30 PM CDT procedure are in the results section. RESPIRATORY PATHOGEN Routine 04/12/2017 Results for this PANEL 11:30 PM CDT procedure are in the results section. LEGIONELLA URINARY Routine 04/12/2017 Results for this ANTIGEN 11:30 PM CDT procedure are in the results section. GRAM STAIN Routine 04/12/2017 Results for this 4:45 PM CDT procedure are in the results section. SPUTUM CULTURE Routine 04/12/2017 Results for this 4:45 PM CDT procedure are in the results section. BLOOD CULTURE, AEROBIC & Routine 04/12/2017 Results for this ANAEROBIC 4:00 PM CDT procedure are in the results section. BLOOD CULTURE, AEROBIC & Routine 04/12/2017 Results for this ANAEROBIC 3:45 PM CDT procedure are in the results section. XR HIPS BILATERAL AP STAT 04/12/2017 Results for this LATERAL W AP PELVIS 2:41 PM CDT procedure are in the results section. XR LUMBAR SPINE 2 OR 3 VW STAT 04/12/2017 Results for this 2:41 PM CDT procedure are in the results section. XR CHEST 1 VW PORTABLE STAT 04/12/2017 Results for this 2:41 PM CDT procedure are in the results section. URINALYSIS SCREEN AND STAT 04/12/2017 Results for this MICROSCOPY, WITH REFLEX 2:22 PM CDT procedure are in the TO CULTURE results section. URINE CULTURE STAT 04/12/2017 Results for this 2:22 PM CDT procedure are in the results section. LACTIC ACID LEVEL STAT 04/12/2017 Results for this 2:05 PM CDT procedure are in the results section. ZZESTIMATED GFR STAT 04/12/2017 Results for this 2:05 PM CDT procedure are in the results section. TROPONIN STAT 04/12/2017 Results for this 2:05 PM CDT procedure are in the results section. BASIC METABOLIC PANEL STAT 04/12/2017 Results for this 2:05 PM CDT procedure are in the results section. HC COMPLETE BLD COUNT STAT 04/12/2017 Results for this W/AUTO DIFF 2:05 PM CDT procedure are in the results section. ECG 12-LEAD STAT 04/12/2017 Results for this 1:09 PM CDT procedure are in the results section. after 03/21/2017 Results * Transfuse RBC (03/13/2018 5:52 PM) * XR Abdomen 1 Vw (01/09/2018 4:58 PM) Narrative Performed At EXAM: XR ABDOMEN 1 VW [facility] CLINICAL: constipation COMPARISON: 01/06/2018 CT IMPRESSION: 1. Moderate stool in the colon, possible constipation. 2. Nonspecific bowel gas pattern. 3. Generalized bone demineralization and degenerative changes. 4. IVC filter. Likely broken filter leg in the right kidney, similar to prior studies. 5. Cholecystectomy. [id number] Procedure Note Interface, Radiology Results Incoming - 01/09/2018 5:07 PM CDT EXAM: XR ABDOMEN 1 VW CLINICAL: constipation COMPARISON: 01/06/2018 CT IMPRESSION: 1. Moderate stool in the colon, possible constipation. 2. Nonspecific bowel gas pattern. 3. Generalized bone demineralization and degenerative changes. 4. IVC filter. Likely broken filter leg in the right kidney, similar to prior studies. 5. Cholecystectomy. [facility]-[id number] Performing Organization Address City/State/Zipcode Phone Number [facility] [address] [place] [address] * Lactic acid level, SEPSIS - Now and repeat 2x every 3 hours (01/09/2018 4:57 PM) Only the most recent of 4 results within the time period is included. Lactic acid 1.4 0.5 - 2.2 mmol/L [facility] OF PATHOLOGY AND GENOMIC MEDICINE Specimen Blood Performing Organization Address City/State/Zipcode Phone Number [place] [address] [place] [address] PATHOLOGY AND GENOMIC MEDICINE * Estimated GFR (01/09/2018 4:57 PM) Only the most recent of 27 results within the time period is included. GFR Non Af Amer 44 (A) mL/min/1.73 m2 [facility] OF PATHOLOGY AND GENOMIC MEDICINE GFR Af Amer 53 (A) mL/min/1.73 m2 [facility] DEPARTMENT OF Comment: PATHOLOGY AND Chronic kidney disease: <60 GENOMIC MEDICINE mL/min/1.73m2 Kidney failure: <15 mL/min/1.73m2 The estimated GFR is calculated from the IDMS-traceable Modification of Diet in Renal Disease Equation. The accuracy of the calculation is poor when the creatinine is normal. Calculated values >90 mL/min/1.73m2 are not reported. This equation has not been validated in children (<18 years), women, the elderly (>70 years), or ethnic groups other than Caucasians and Americans. Specimen Plasma specimen Performing Organization Address City/State/Zipcode Phone Number [facility] [address] [place] [address] PATHOLOGY AND [employer] MEDICINE * CBC with platelet and differential (01/09/2018 4:57 PM) Only the most recent of 25 results within the time period is included. WBC 8.8 4.2 - 11.0 k/uL [facility] PATHOLOGY AND GENOMIC MEDICINE RBC 3.22 (L) 4.04 - 5.86 m/uL [facility] PATHOLOGY AND GENOMIC MEDICINE HGB 10.3 (L) 11.5 - 15.3 g/dL [facility] PATHOLOGY AND GENOMIC MEDICINE HCT 32.7 (L) 34.0 - 45.0 % [facility] PATHOLOGY AND GENOMIC MEDICINE MCV 101.6 (H) 80.0 - 98.0 fL [facility] PATHOLOGY AND GENOMIC MEDICINE MCH 32.0 27.0 - 34.0 pg [facility] PATHOLOGY AND GENOMIC MEDICINE MCHC 31.5 31.5 - 36.5 g/dL [facility] PATHOLOGY AND GENOMIC MEDICINE RDW - SD 55.2 (H) 37.0 - 51.0 fL [facility] PATHOLOGY AND GENOMIC MEDICINE MPV 11.0 (H) 7.4 - 10.4 fL [facility] PATHOLOGY AND GENOMIC MEDICINE Platelet count 128 (L) 150 - 400 k/uL [facility] PATHOLOGY AND [employer] MEDICINE Nucleated RBC 0.00 /100 WBC [facility] OF PATHOLOGY AND GENOMIC MEDICINE Neutrophils 85.5 (H) 36.0 - 66.0 % [facility] PATHOLOGY AND GENOMIC MEDICINE Lymphocytes 9.6 (L) 24.0 - 44.0 % [facility] DEPARTMENT OF PATHOLOGY AND GENOMIC MEDICINE Monocytes 3.4 0.0 - 6.0 % [facility] OF PATHOLOGY AND GENOMIC MEDICINE Eosinophils 0.2 0.0 - 6.0 % [facility] OF PATHOLOGY AND GENOMIC MEDICINE Basophils 0.2 0.0 - 1.2 % [facility] OF PATHOLOGY AND GENOMIC MEDICINE Immature granulocytes 1.1 (H) 0.0 - 1.0 % [facility] OF PATHOLOGY AND GENOMIC MEDICINE Specimen Blood Performing Organization Address City/[facility] [place] [address] PATHOLOGY AND GENOMIC MEDICINE * Lipase level (01/09/2018 4:57 PM) Only the most recent of 2 results within the time period is included. Lipase 10 (L) 13 - 60 U/L [facility] PATHOLOGY AND GENOMIC MEDICINE Specimen Plasma specimen Performing Organization Address [facility] [place] [address] [facility] * Hepatic function panel (01/09/2018 4:57 PM) Only the most recent of 3 results within the time period is included. Albumin 2.6 (L) 3.5 - 5.0 g/dL [facility] OF PATHOLOGY AND GENOMIC MEDICINE Total bilirubin 0.5 0.2 - 1.2 mg/dL [facility] OF PATHOLOGY AND GENOMIC MEDICINE Bilirubin direct <0.2 0.0 - 0.4 mg/dL [facility] OF PATHOLOGY AND GENOMIC MEDICINE Alkaline phosphatase 231 (H) 0 - 104 U/L [facility] OF PATHOLOGY AND GENOMIC MEDICINE Protein 5.8 (L) 6.3 - 8.3 g/dL [facility] OF PATHOLOGY AND GENOMIC MEDICINE ALT 23 5 - 50 U/L [facility] DE[facility]MENT OF PATHOLOGY AND GENOMIC MEDICINE AST 34 10 - 35 U/L [facility] DEPARTMENT OF PATHOLOGY AND GENOMIC MEDICINE Specimen Plasma specimen Performing Organization Address [facility] [place] [address] PATHOLOGY AND [facility] * Basic metabolic panel (01/09/2018 4:57 PM) Only the most recent of 24 results within the time period is included. Sodium 142 135 - 150 mEq/L [facility] PATHOLOGY AND GENOMIC MEDICINE Potassium 3.4 (L) 3.5 - 5.0 mEq/L [facility] DE[facility] OF PATHOLOGY AND GENOMIC MEDICINE Chloride 98 98 - 112 mEq/L [facility] OF PATHOLOGY AND GENOMIC MEDICINE CO2 33 (H) 24 - 31 mmol/L [facility] DE[facility]MENT OF PATHOLOGY AND GENOMIC MEDICINE Anion gap 11@ANIO 7 - 15 mEq/L [facility] DE[facility] OF PATHOLOGY AND GENOMIC MEDICINE BUN 26 (H) 7 - 18 mg/dL [facility] OF PATHOLOGY AND GENOMIC MEDICINE Creatinine 1.20 (H) 0.50 - 0.90 mg/dL [facility] OF PATHOLOGY AND GENOMIC MEDICINE Glucose 150 (H) 65 - 100 mg/dL [facility]MENT OF PATHOLOGY AND GENOMIC MEDICINE Calcium 8.4 (L) 8.8 - 10.2 mg/dL [facility] OF PATHOLOGY AND GENOMIC MEDICINE Specimen Plasma specimen Performing Organization Address City/State/Zipcode Phone Number [place] [address] [place] [address] PATHOLOGY AND GENOMIC MEDICINE * GENERAL (01/09/2018 3:12 PM) Narrative Performed At Jennifer Krause MD 01/09/2018 8:15 PM Fecal Disimpaction Performed by: JENNIFER KRAUSE Authorized by: JENNIFER KRAUSE Consent: Consent obtained: Verbal Consent given by: Patient Risks discussed: Pain Alternatives discussed: No treatment and delayed treatment Indications: Indications: Constipation Anesthesia (see MAR for exact dosages): Anesthesia method: None Post-procedure details: Patient tolerance of procedure: Tolerated well, no immediate complications Comments: Large amount of stool removed. * Urinalysis screen and microscopy, with reflex to culture (01/06/2018 7:18 PM) Only the most recent of 5 results within the time period is included. Specimen site Clean catch [facility] DEPARTMENT OF PATHOLOGY AND GENOMIC MEDICINE Color, UA Yellow [facility] DEPARTMENT OF PATHOLOGY AND GENOMIC MEDICINE Appearance, UA Clear [facility] DEPARTMENT OF PATHOLOGY AND GENOMIC MEDICINE Specific gravity, UA 1.013 1.001 - 1.035 [facility] DEPARTMENT OF PATHOLOGY AND GENOMIC MEDICINE pH, UA 7.0 5.0 - 8.5 [facility] DEPARTMENT OF PATHOLOGY AND GENOMIC MEDICINE Protein, UA Negative Negative [facility] DEPARTMENT OF PATHOLOGY AND GENOMIC MEDICINE Glucose, UA Negative Negative [facility] DEPARTMENT OF PATHOLOGY AND GENOMIC MEDICINE Ketones, UA Negative Negative [facility] DEPARTMENT OF PATHOLOGY AND GENOMIC MEDICINE Bilirubin, UA Negative Negative [facility] DEPARTMENT OF PATHOLOGY AND GENOMIC MEDICINE Blood, UA Moderate (A) Negative [facility] DEPARTMENT OF PATHOLOGY AND GENOMIC MEDICINE Nitrite, UA Negative Negative [facility] DEPARTMENT OF PATHOLOGY AND GENOMIC MEDICINE Urobilinogen, UA Negative <2.0 [facility] DEPARTMENT OF PATHOLOGY AND GENOMIC MEDICINE Leukocyte esterase, UA Large (A) Negative [facility] DEPARTMENT OF PATHOLOGY AND GENOMIC MEDICINE WBC, UA 10-15 (H) 0 - 4 /HPF [facility] DEPARTMENT OF PATHOLOGY AND GENOMIC MEDICINE RBC, UA 10-15 (H) 0 - 5 /HPF [facility] DEPARTMENT OF PATHOLOGY AND GENOMIC MEDICINE Bacteria, UA None seen None seen [facility] DEPARTMENT OF PATHOLOGY AND GENOMIC MEDICINE Yeast, UA None seen [facility] DEPARTMENT OF PATHOLOGY AND GENOMIC MEDICINE Yeast with pseudohyphae, None seen [facility] DEPARTMENT OF PATHOLOGY AND GENOMIC MEDICINE Specimen Urine Performing Organization Address City/[facility] Phone Number [facility] DEPARTMENT OF [address] [place] [address] [place] [address] PATHOLOGY AND GENOMIC MEDICINE * Gram stain (01/06/2018 7:18 PM) Only the most recent of 6 results within the time period is included. Gram stain result No WBC's [facility] DEPARTMENT OF Many Gram negative rods PATHOLOGY AND Comment: GENOMIC MEDICINE Specimen Information Specimen Source: Urine Specimen Site: Clean catch Specimen Urine Performing Organization Address City/[facility]/Zipcode Phone Number [facility] DEPARTMENT OF [address] [place] [id number] PATHOLOGY AND GENOMIC MEDICINE * Urine culture (01/06/2018 7:18 PM) Only the most recent of 4 results within the time period is included. Urine culture isolate Mixed Gram negative rods [facility] DEPARTMENT OF >10-5 cfu/ml PATHOLOGY AND (A) GENOMIC MEDICINE Comment: Specimen Information Specimen Source: Urine Specimen Site: Clean catch Specimen Urine Performing Organization Address City/[facility]/Zipcode Phone Number [facility] DEPARTMENT OF [address] [place] [address] PATHOLOGY AND GENOMIC MEDICINE * CT Abdomen Pelvis W Contrast (01/06/2018 7:03 PM) Narrative Performed At EXAMINATION: CT ABDOMEN PELVIS W CONTRAST [facility] CLINICAL HISTORY: rectal pain hx of diverticulitis COMPARISON: 02/20/2009 TECHNIQUE: CT of the abdomen and pelvis with intravenous contrast. CT imaging was performed with iterative reconstruction techniques and/or automated exposure control to reduce radiation dose. FINDINGS: LOWER THORAX: There is a prominent pneumatocele within the right middle lobe, partially imaged. Measures 6.9 cm in the region of previous lung abscess. Bibasilar atelectasis. Heart is prominent with partially visualized cardiac leads. HEPATOBILIARY: Cholecystectomy. The common bile duct is dilated measuring 1.5 cm. There was a common bile duct stent partially visualized on CT scan of the chest 07/17/2017. It is no longer present. There is some mild enhancement of the common bile duct. SPLEEN: No splenomegaly. PANCREAS: Atrophic. No pancreatic ductal dilatation. ADRENALS: No adrenal nodules. KIDNEYS: There is a linear radio density in the lower pole of the right kidney, may be a leg from patient's IVC filter. Was present in 2008. There is some renal cortical thinning and scarring on the left. GI TRACT: Absence of contrast decreases sensitivity for detection of bowel pathology. There does appear to be circumferential wall thickening in the region of the anal sphincter complex. This area is not well evaluated on CT. Above this area, there is some prominent fecal material in the rectum. There are postsurgical changes in the upper to mid rectum. A few scattered colonic diverticula without CT evidence of diverticulitis. The appendix is normal. There is no obstruction. PERITONEUM/RETROPERITONEUM: Abdominal aorta is nonaneurysmal with prominent calcifications. Infrarenal IVC filter. No abdominal adenopathy, ascites or free air. PELVIC ORGANS/BLADDER: Uterus is absent. There is a Nova catheter within the bladder with mild bladder wall thickening. There is no pelvic adenopathy or fluid collection. BONES AND SOFT TISSUES: There is prominent atrophy of many of the muscles of the abdomen and pelvis including the rectus muscles, paraspinal muscles and gluteal muscles. Atrophy is also present of the proximal lower extremities. Degenerative changes in the spine. There is a stable compression deformity at T12. IMPRESSION: 1. Suggestion of wall thickening within the anal sphincter complex, not well evaluated on CT. This could be related to proctitis although other pathology including mass are not excluded. Direct visualization and follow-up are advised. There is prominent fecal material within the rectum proximal to this area. 2. Previous biliary stent is no longer present. Common bile duct is dilated. ERCP can be performed as indicated. Some mild enhancement along the common bile bile duct, some cholangitis is not excluded. Please correlate. 3. No evidence of diverticulitis. 4. Additional findings as above. [facility]-[id number] Procedure Note Hm Interface, Radiology Results Incoming - 01/06/2018 7:23 PM CDT EXAMINATION: CT ABDOMEN PELVIS W CONTRAST CLINICAL HISTORY: rectal pain hx of diverticulitis COMPARISON: 02/20/2009 TECHNIQUE: CT of the abdomen and pelvis with intravenous contrast. CT imaging was performed with iterative reconstruction techniques and/or automated exposure control to reduce radiation dose. FINDINGS: LOWER THORAX: There is a prominent pneumatocele within the right middle lobe, partially imaged. Measures 6.9 cm in the region of previous lung abscess. Bibasilar atelectasis. Heart is prominent with partially visualized cardiac leads. HEPATOBILIARY: Cholecystectomy. The common bile duct is dilated measuring 1.5 cm. There was a common bile duct stent partially visualized on CT scan of the chest 07/17/2017. It is no longer present. There is some mild enhancement of the common bile duct. SPLEEN: No splenomegaly. PANCREAS: Atrophic. No pancreatic ductal dilatation. ADRENALS: No adrenal nodules. KIDNEYS: There is a linear radio density in the lower pole of the right kidney , may be a leg from patient's IVC filter. Was present in 2008. There is some renal cortical thinning and scarring on the left. GI TRACT: Absence of contrast decreases sensitivity for detection of bowel pathology. There does appear to be circumferential wall thickening in the region of the anal sphincter complex. This area is not well evaluated on CT. Above this area, there is some prominent fecal material in the rectum. There are postsurgical changes in the upper to mid rectum. A few scattered colonic diverticula without CT evidence of diverticulitis. The appendix is normal. There is no obstruction. PERITONEUM/RETROPERITONEUM: Abdominal aorta is nonaneurysmal with prominent calcifications. Infrarenal IVC filter. No abdominal adenopathy, ascites or free air. PELVIC ORGANS/BLADDER: Uterus is absent. There is a Nova catheter within the bladder with mild bladder wall thickening. There is no pelvic adenopathy or fluid collection. BONES AND SOFT TISSUES: There is prominent atrophy of many of the muscles of the abdomen and pelvis including the rectus muscles, paraspinal muscles and gluteal muscles. Atrophy is also present of the proximal lower extremities. Degenerative changes in the spine. There is a stable compression deformity at T12. IMPRESSION: 1. Suggestion of wall thickening within the anal sphincter complex, not well evaluated on CT. This could be related to proctitis although other pathology including mass are not excluded. Direct visualization and follow-up are advised. There is prominent fecal material within the rectum proximal to this area. 2. Previous biliary stent is no longer present. Common bile duct is dilated. ERCP can be performed as indicated. Some mild enhancement along the common bile bile duct, some cholangitis is not excluded. Please correlate. 3. No evidence of diverticulitis. 4. Additional findings as above. [facility]-[id number] Performing Organization Address City/[facility]/Zipcode Phone Number [facility] [address] [place] [address] * Partial thromboplastin time, activated (01/06/2018 6:03 PM) Only the most recent of 2 results within the time period is included. PTT 35.1 23.0 - 36.0 sec [facility] DEPARTMENT OF Comment: PATHOLOGY AND PTT therapeutic range for [employer] MEDICINE unfractionated heparin is 61.0-112.0 seconds which corresponds to Anti-Xa 0.3-0.7 U/ml. Specimen Blood Performing Organization Address [facility] Phone Number [address] [place] [phone] PATHOLOGY AND [employer] MEDICINE * Prothrombin time with INR (01/06/2018 6:03 PM) Only the most recent of 4 results within the time period is included. Prothrombin time 33.5 (H) 12.0 - 15.0 sec [facility] DEPARTMENT OF PATHOLOGY AND [employer] [facility]INE INR 3.2 [facility] DEPARTMENT OF Comment: PATHOLOGY AND The International Normalized GENOMIC MEDICINE Ratio (INR) is a therapeutic monitoring tool for patients who are stable on oral anticoagulant therapy. An INR of 2.0-3.0 is suggested for deep vein thrombosis/pulmonary embolism. Specimen Blood Performing Organization Address [facility] Phone Number [facility] [place] [id number] [place] [address] [place] [address] PATHOLOGY AND [employer] [facility]ICINE * Comprehensive metabolic panel (01/06/2018 6:03 PM) Only the most recent of 3 results within the time period is included. Sodium 143 135 - 148 mEq/L [facility] DEPARTMENT OF PATHOLOGY AND GENOMIC MEDICINE Potassium 3.3 (L) 3.5 - 5.0 mEq/L [facility] DEPARTMENT OF PATHOLOGY AND GENOMIC MEDICINE Chloride 99 98 - 112 mEq/L [facility] DEPARTMENT OF PATHOLOGY AND GENOMIC MEDICINE CO2 30 24 - 31 mEq/L [facility] DEPARTMENT OF PATHOLOGY AND GENOMIC MEDICINE Anion gap 14@ANIO 7 - 15 mEq/L [facility] DEPARTMENT OF PATHOLOGY AND GENOMIC MEDICINE BUN 37 (H) 8 - 23 mg/dL [facility] DEPARTMENT OF PATHOLOGY AND GENOMIC MEDICINE Creatinine 1.2 (H) 0.5 - 0.9 mg/dL [facility] DEPARTMENT OF PATHOLOGY AND GENOMIC MEDICINE Glucose 71 65 - 99 mg/dL [facility] DEPARTMENT OF PATHOLOGY AND GENOMIC MEDICINE Calcium 8.2 (L) 8.8 - 10.2 mg/dL [facility] DEPARTMENT OF PATHOLOGY AND GENOMIC MEDICINE Protein 5.6 (L) 6.3 - 8.3 g/dL [facility] DEPARTMENT OF Comment: PATHOLOGY AND GENOMIC MEDICINE 4.6-7.0 g/dL 1 week 4.4-7.6 g/dL 7 months-1year 5.1-7.3 g/dL 1-2 years 5.6-7 .5 g/dL >3 years 6.0-8 .0 g/dL 18-150 6.3-8.3 g/dL Albumin 2.8 (L) 3.5 - 5.0 g/dL [facility] DEPARTMENT OF PATHOLOGY AND GENOMIC MEDICINE A/G ratio 1.0 0.7 - 3.8 [facility] DEPARTMENT OF PATHOLOGY AND GENOMIC MEDICINE Alkaline phosphatase 247 (H) 35 - 104 U/L [facility] DEPARTMENT OF PATHOLOGY AND GENOMIC MEDICINE AST 41 (H) 10 - 35 U/L [facility] DEPARTMENT OF PATHOLOGY AND GENOMIC MEDICINE ALT 26 5 - 50 U/L [facility] DEPARTMENT OF PATHOLOGY AND GENOMIC MEDICINE Total bilirubin 0.4 0.0 - 1.2 mg/dL [facility] DEPARTMENT OF PATHOLOGY AND GENOMIC MEDICINE Specimen Plasma specimen Performing Organization Address City/State/Zipcode Phone Number [facility] [place] [address] [place] [address] PATHOLOGY AND GENOMIC MEDICINE * Smear review (10/13/2017 5:30 AM) Only the most recent of 6 results within the time period is included. Platelet slide review Decreased (A) [facility] DEPARTMENT OF PATHOLOGY AND GENOMIC MEDICINE Anisocytosis Moderate [facility] DEPARTMENT OF PATHOLOGY AND GENOMIC MEDICINE Target cells Moderate (A) [facility] DEPARTMENT OF PATHOLOGY AND GENOMIC MEDICINE Ovalocytes Moderate [facility] DEPARTMENT OF PATHOLOGY AND GENOMIC MEDICINE Stomatocytes Moderate (A) [facility] DEPARTMENT OF PATHOLOGY AND GENOMIC MEDICINE Performing Organization Address [facility] Phone Number [facility] [id number] [place] [address] [place] [phone] PATHOLOGY AND GENOMIC MEDICINE * XR Chest 1 Vw Portable (10/11/2017 5:24 AM) Only the most recent of 4 results within the time period is included. Narrative Performed At EXAMINATION: XR CHEST 1 VW PORTABLE [facility] CLINICAL HISTORY: SHORTNESS OF BREATH COMPARISON: Yesterday IMPRESSION: Support lines and hardware unchanged. Better aeration at the right lung base, otherwise stable [id number] Procedure Note Hm Interface, Radiology Results Incoming - 10/11/2017 6:31 AM CDT EXAMINATION: XR CHEST 1 VW PORTABLE CLINICAL HISTORY: SHORTNESS OF BREATH COMPARISON: Yesterday IMPRESSION: Support lines and hardware unchanged. Better aeration at the right lung base, otherwise stable [id number] Performing Organization Address [facility] Phone Number [facility] [address] [place] [address] * Lactic acid level (10/11/2017 3:20 AM) Only the most recent of 3 results within the time period is included. Lactic acid 2.1 0.5 - 2.2 mmol/L [facility] DEPARTMENT OF PATHOLOGY AND GENOMIC MEDICINE Specimen Plasma specimen Performing Organization Address City/[facility] Phone Number [address] [place] [phone] PATHOLOGY AND GENOMIC MEDICINE * Lipid panel (10/11/2017 3:20 AM) Only the most recent of 2 results within the time period is included. Cholesterol 77 <200 mg/dL [facility] DEPARTMENT OF PATHOLOGY AND GENOMIC MEDICINE Triglycerides 95 <150 mg/dL [facility] DEPARTMENT OF PATHOLOGY AND GENOMIC MEDICINE HDL cholesterol 28 (L) >40 mg/dL [facility] DEPARTMENT OF PATHOLOGY AND GENOMIC MEDICINE LDL cholesterol 30Comment: Result obtained by <100 mg/dL [facility] DEPARTMENT OF direct LDL measurement PATHOLOGY AND GENOMIC MEDICINE Lipid panel SeeBelow [facility] DEPARTMENT OF interpretation Comment: PATHOLOGY AND Total Cholesterol GENOMIC MEDICINE (mg/dL) <200 Desirable 200-239 Borderline -high >=240 High Triglycerides (mg/dL) <150 Normal 150-199 Borderline -high 200-499 High >=500 Very high HDL Cholesterol (mg/dL) <40 Low (male) <40 Low (female) LDL Cholesterol (mg/dL) <100 Optimal 100-129 Near or above optimal 130-159 Borderline -high 160-189 High >=190 Very high Risk Catergories that modify LDL goals. Risk Catergories LDL goal (mg/dL) CHD and CHD risk equivalent <100 (10-year risk >20%) Multiple (2+) risk factors <130 (10-year risk=<20%) 0-1 risk factors <160 (<10-year risk) Defining levels of lipids in metabolic syndrome Triglycerides >=150 mg/dL HDL Cholesterol Men <40 mg/dL Women <40 mg/dL Non-HDL cholesterol is a second target for therapy in persons with high triglycerides (>=200 mg/dL) Specimen Plasma specimen Performing Organization Address [facility] Phone Number [address] [place] [address] PATHOLOGY AND GENOMIC MEDICINE * Magnesium level (10/10/2017 4:45 AM) Only the most recent of 9 results within the time period is included. Magnesium 2.6 (H) 1.6 - 2.4 mg/dL [facility] DEPARTMENT OF PATHOLOGY AND GENOMIC MEDICINE Specimen Plasma specimen Performing Organization Address [facility] Number [address] [place] [address] PATHOLOGY AND [employer] MEDICINE * Occult blood, stool (10/10/2017 4:00 AM) Occult blood, stool Negative for occult blood. [facility] DEPARTMENT OF Comment: PATHOLOGY AND Specimen Information GENOMIC MEDICINE Specimen Source: Stool Specimen Site: Preserved Specimen Stool - Preserved Performing Organization Address [facility] Number [address] [place] [address] PATHOLOGY AND GENOMIC MEDICINE * POC glucose (10/09/2017 8:14 PM) Only the most recent of 2 results within the time period is included. POC glucose 173 (H) 65 - 99 mg/dL [facility] DEPARTMENT OF Comment: PATHOLOGY AND Meter ID: [id number] GENOMIC MEDICINE Operations Management Trainee: Abram Anderson Performing Organization Address [facility] Phone Number [address] [place] [address] PATHOLOGY AND GENOMIC MEDICINE * ECG 12 lead (10/09/2017 7:29 PM) Only the most recent of 4 results within the time period is included. Ventricular rate 132 [facility] Atrial rate 132 [facility] [place] interval 88 [facility] QRSD interval 172 [facility] QT interval 374 [facility] QTC interval 554 [facility] MUSE P axis 1 174 [facility] QRS axis 1 -55 [facility] MUSE T wave axis 102 [facility] MUSE EKG impression Undetermined rhythm-Left axis [facility] MUSE deviation-Left bundle branch block-Abnormal ECG-- Performing Organization Address City/State/Zipcode Phone Number [facility] MUSE [address] [place] [address] * Hemoglobin & hematocrit (10/09/2017 4:15 PM) Only the most recent of 2 results within the time period is included. HGB 8.1 (L) 12.0 - 16.0 g/dL [facility] DEPARTMENT OF Comment: PATHOLOGY AND REPEAT VALUE 8.2 GENOMIC MEDICINE PT RECEIVED 2 UNITS PRBCS HCT 25.4 (L) 37.0 - 47.0 % [facility] DEPARTMENT OF PATHOLOGY AND GENOMIC MEDICINE Specimen Blood Performing Organization Address City/[facility]/Zipcode Phone Number [facility] DEPARTMENT [address] [place] [address] PATHOLOGY AND GENOMIC MEDICINE * Pv carotid duplex (10/09/2017 12:00 PM) R ECA Prox 13.80 cm/s cm/s [facility] R ICA Prox 23.2 cm/s cm/s [facility] R ICA Prox 55.3 cm/s cm/s [facility] R ICA/CCA Ratio 0.4 cm/s [facility] R CCA Max 129.30 cm/s cm/s [facility] R ICA Max 55.30 cm/s cm/s [facility] R CCA Prox 22.9 cm/s cm/s [facility] R CCA Prox 129.3 cm/s cm/s [facility] R ICA Dist 19.1 cm/s cm/s [facility] R CCA Dist 16.2 cm/s cm/s [facility] R CCA Dist 56.4 cm/s cm/s [facility] R Vert Art 15.70 cm/s cm/s [facility] R ECA Prox 63.80 cm/s cm/s [facility] R ICA Dist 47.2 cm/s cm/s [facility] R Vert Art 34.60 cm/s cm/s [facility] Narrative Performed At [facility] Incomplete study. Minimal plaque is present in the right carotid bifurcation. Left Carotid could not be scanned due to central line. Performing Organization Address City/State/Zipcode Phone Number [facility] [address] [place] [address] * Echocardiogram complete w contrast and 3D if needed (10/09/2017 10:30 AM) Velocity Ratio (V1/V2) 0.57 m/s [facility] IVS,d 1.05 0.6 - 1.2 cm [facility] EF 25.42 % [facility] LA volume 88.0 cm3 [facility] LVPWD,d 0.79 cm [facility] AoV Mean PG 7.35 mmHg [facility] AV LVOT peak gradient 4.08 mmHg [facility] MV valve area p 1/2 2.72 cm2 [facility] method E/A ratio 1.48 [facility] E wave decelartion time 146.94 msec [facility] LVOT Diam,S 1.86 cm [facility] LVOT area 2.72 cm2 [facility] LVOT Vmax 1.01 m/s [facility] LVOT VTI 0.17 m [facility] AoV Peak PG 12.60 mmHg [facility] MV Peak E Nikunj 1.02 m/s [facility] MV stenosis pressure 1/2 80.94 ms [facility] time MV Peak A Nikunj 0.69 m/s [facility] LV Vol,s A2C 124.73 mL [facility] LV Vol,d A2C 164.47 mL [facility] AoV Area, Vmax 1.55 cm2 [facility] AoV Area, VTI 1.35 cm2 [facility] AoV Vmax 1.78 m/s [facility] LA Area d A4C 56 cm2 [facility] LV,d 7.03 cm [facility] LV,s 6.18 cm [facility] LV Vol,d A4C 181.82 ml [facility] LV Vol,s A4C 142.77 ml [facility] TR Vpeak 2.33 mm/s [facility] MV E A ratio 1.47 mmHg [facility] RA pressure 5.00 mmHg [facility] TR pk grad 21.68 mmHg [facility] MR peak grad 80.43 mmHg [facility] RVSP 26.68 mmHg [facility] AR Press Half Time 664.20 ms [facility] LV SYS VOL 192.21 ml [facility] LV SANDS VOL 257.74 ml [facility] LA diam s 4.40 cm [facility] LA Vol MOD A4C 55.85 ml [facility] LV SV Teich 2D 65.53 ml [facility] LVOT SI 21.99 ml/m2 [facility] AoV Cusp sep 1.49 [facility] Aortic Root 2.81 cm [facility] AoV Vmn 1.30 [facility] AR slope 1.36 [facility] Ar Vmax 3.12 [facility] IVS s 2D 1.13 [facility] LA Ao Ratio Mmode 1.58 [facility] NJ End Sands Grad 4.51 [facility] NJ End Diat Nikunj 1.06 [facility] AR maxPG 39.03 [facility] D E excurs 1.60 [facility] E f slope 0.10 [facility] E prime lat 0.06 [facility] E dariusz sept 0.07 [facility] PV acc T slope 9.00 [facility] PV AT 83.04 msec [facility] AoV VTI 0.34 m [facility] LV EF,A2C 24.16 % [facility] LV EF,A4C 21.48 % [facility] LV EF,BP 24.10 % [facility] Aleksey [place],d A2C 9.25 cm [facility] Aleksey [place],d A4C 8.75 cm [facility] Aleksey [place],s A2C 8.04 cm [facility] Aleksey [place],s A4C 8.17 cm [facility] LV SV,A2C 39.73 % [facility] LV SV,A4C 39.05 % [facility] LV Vol,d BP 176.93 ml [facility] LV Vol,s BP 134.30 nl [facility] MR Vmax 4.48 m/s [facility] LVOT Vmn 0.68 [facility] Pt Size 175.26 [facility] Pt Wt 92.53 [facility] LVOT mean grad 2.13 mmHg [facility] AR DT 2,290.33 msec [facility] AR pk grad 39.03 mmHg [facility] LVPW s PLAX 1.07 cm [facility] MV Decel slope 6.91 m/s2 [facility] Narrative Performed At [facility] Bubble study negative. The left ventricle chamber size is moderately enlarged. Left ventricular systolic function severely impaired . There is mild left ventricular concentric hypertrophy. Left Ventricular ejection fraction is 20 - 25%. Right ventricular function is mildly reduced and size is normal. Global right ventricle systolic function is mildly reduced No pericardial effusion The mitral valve appears thickened. Mild mitral valve regurgitation Spectral Doppler shows pseudonormal pattern of left ventricular diastolic filling. Performing Organization Address City/[facility] Phone Number [facility] [address] [place] [address] * Phosphorus level (10/09/2017 4:45 AM) Only the most recent of 8 results within the time period is included. Phosphorus 2.6 2.4 - 4.5 mg/dL [facility] DEPARTMENT OF PATHOLOGY AND GENOMIC MEDICINE Specimen Plasma specimen Performing Organization Address [facility] Phone Number [address] [place] [address] PATHOLOGY AND GENOMIC MEDICINE * Ionized calcium (10/09/2017 4:45 AM) pH 7.30 [facility] DEPARTMENT OF PATHOLOGY AND GENOMIC MEDICINE Ionized calcium 1.18 1.11 - 1.32 mmol/L [facility] DEPARTMENT OF PATHOLOGY AND GENOMIC MEDICINE Specimen Plasma specimen Performing Organization Address [facility] Phone Number [address] [place] [address] PATHOLOGY AND GENOMIC MEDICINE * Troponin (10/08/2017 11:50 PM) Only the most recent of 5 results within the time period is included. Troponin <0.300 0.000 - 0.300 ng/mL [facility] DEPARTMENT OF Comment: PATHOLOGY AND 0.30 - 1.49 GENOMIC MEDICINE ng/ml May indicate increased risk of acute coronary syndrome. >=1.5 ng/ml Consistent with acute myocardial infarction. The diagnostic value of a single normal or non-diagnostic result is questionable. Serial samples at 2-6 hour intervals are required to rule out acute myocardial injury. Specimen Plasma specimen Performing Organization Address [facility] Phone Number [address] [place] [address] PATHOLOGY AND GENOMIC MEDICINE * Arterial blood gas (10/08/2017 8:38 PM) pH, arterial 7.41 7.35 - 7.45 [facility] DEPARTMENT OF PATHOLOGY AND GENOMIC MEDICINE pCO2, arterial 35 35 - 45 mmHg [facility] DEPARTMENT OF PATHOLOGY AND GENOMIC MEDICINE pO2, arterial 88 80 - 90 mmHg [facility] DEPARTMENT OF PATHOLOGY AND GENOMIC MEDICINE Bicarbonate, arterial 22.8 21.0 - 28.0 mmol/L [facility] DEPARTMENT OF PATHOLOGY AND GENOMIC MEDICINE Base excess, arterial -2 -2 - 2 mEq/L [facility] DEPARTMENT OF PATHOLOGY AND GENOMIC MEDICINE O2 saturation, arterial 97 95 - 100 % [facility] DEPARTMENT OF PATHOLOGY AND GENOMIC MEDICINE FiO2, inspired O2% 21 % [facility] DEPARTMENT OF PATHOLOGY AND GENOMIC MEDICINE Specimen Blood Performing Organization Address City/State/Zipcode Phone Number [facility] [address] [place] [address] PATHOLOGY [facility] GENOMIC [facility] * CT Head Wo Contrast (10/08/2017 5:47 PM) Narrative Performed At EXAMINATION: CT HEAD WO CONTRAST RADIANT CLINICAL HISTORY: weakness COMPARISON: CT head 12/18/2011 TECHNIQUE: Noncontrast head CT performed using radiation dose reduction techniques. Technical factors are evaluated and adjusted to ensure appropriate moderation of exposure. Automated dose management technology is applied to adjust radiation exposure while achieving a diagnostic quality image. FINDINGS: No evidence of acute intracranial hemorrhage, mass, mass effect, or midline shift. Age-indeterminate lacunar infarct right putamen. Mild chronic microvascular ischemic change. Mild diffuse cerebral volume loss with proportionate prominence of the ventricles. Basal cisterns are clear. Calcifications carotid siphons. Calvarium is intact. Bilateral lens extractions. Mild scattered paranasal sinus mucosal thickening. Minimal right mastoid fluid. IMPRESSION: 1. 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 MRI could be performed for further assessment. Findings were discussed with and acknowledged by KATI Singh at 10/08/2017 6:05 PM who verbalized understanding. [id number] Procedure Note Hm Interface, Radiology Results Incoming - 10/08/2017 6:09 PM CDT EXAMINATION: CT HEAD WO CONTRAST CLINICAL HISTORY: weakness COMPARISON: CT head 12/18/2011 TECHNIQUE: Noncontrast head CT performed using radiation dose reduction techniques. Technical factors are evaluated and adjusted to ensure appropriate moderation of exposure. Automated dose management technology is applied to adjust radiation exposure while achieving a diagnostic quality image. FINDINGS: No evidence of acute intracranial hemorrhage, mass, mass effect, or midline shift. Age-indeterminate lacunar infarct right putamen. Mild chronic microvascular ischemic change. Mild diffuse cerebral volume loss with proportionate prominence of the ventricles. Basal cisterns are clear. Calcifications carotid siphons. Calvarium is intact. Bilateral lens extractions. Mild scattered paranasal sinus mucosal thickening. Minimal right mastoid fluid. IMPRESSION: 1. 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 MRI could be performed for further assessment. Findings were discussed with and acknowledged by KAIT Singh at 10/08/2017 6: 05 PM who verbalized understanding. [id number] Performing Organization Address City/State/Zipcode Phone Number [address] [address] * Gastrointestinal panel (10/08/2017 5:40 PM) Only the most recent of 2 results within the time period is included. Gastrointestinal panel Positive for C. difficile [facility] DEPARTMENT OF toxin PATHOLOGY AND GENOMIC MEDICINE Negative for all other pathogens tested: Negative for Salmonella Negative for Campylobacter Negative for Diarrheagenic E coli/Shigella Negative for Shiga-like toxin-producing E coli Negative for Plesiomonas shigelloides Negative for Yersinia enterocolitica Negative for Vibrio species Negative for Cryptosporidium Negative for Giardia lamblia Negative for Cyclospora cayeteanensis Negative for Entamoeba histolytica Negative for Adenovirus F 40/41 Negative for Astrovirus Negative for Norovirus GI/GII Negative for Rotavirus A Negative for Sapovirus Negative for E coli 0157 This real-time PCR assay detects the presence of nucleic acids (RNA or DNA) for the gastrointestinal pathogens listed. A result of "Not-detected" does not exclude the possibility of the presence of one or more pathogens at concentrations less than the detectable limits of the assay. (A) Comment: Specimen Information Specimen Source: Stool Specimen Site: Nonpreserved Specimen Stool - Nonpreserved Performing Organization Address City/[facility]/Zipcode Phone Number [facility] DEPARTMENT OF [address] [place] [id number] PATHOLOGY AND GENOMIC MEDICINE * XR Chest 1 Vw (10/08/2017 5:29 PM) Only the most recent of 2 results within the time period is included. Narrative Performed At PROCEDURE: XR CHEST 1 VW [facility] CLINICAL HISTORY: CENTRAL LINE PLACEMENT COMPARISON: October 08, 2017 at 1507 hours-July 08, 2017 TECHNIQUE: A single view of the chest was taken in the AP projection. The images were digitally labeled by the technologist. FINDINGS: No active pleural, parenchymal, or mediastinal abnormality is noted. A triple lead pacemaker is noted with the proximal lead projected over the right atrium and the distal 2 leads projected over the region of the right ventricular apex. No acute abnormality is demonstrated of the visualized bones of the thorax. IMPRESSION: No acute abnormality in the chest. [id number] Procedure Note Interface, Radiology Results Incoming - 10/08/2017 5:34 PM CDT PROCEDURE: XR CHEST 1 VW CLINICAL HISTORY: CENTRAL LINE PLACEMENT COMPARISON: October 08, 2017 at 1507 hours-July 08, 2017 TECHNIQUE: A single view of the chest was taken in the AP projection. The images were digitally labeled by the technologist. FINDINGS: No active pleural, parenchymal, or mediastinal abnormality is noted. A triple lead pacemaker is noted with the proximal lead projected over the right atrium and the distal 2 leads projected over the region of the right ventricular apex. No acute abnormality is demonstrated of the visualized bones of the thorax. IMPRESSION: No acute abnormality in the chest. [id number] Performing Organization Address City/State/Zipcode Phone Number [facility] [address] [place] [address] * Prepare RBC, 2 Units (10/08/2017 4:04 PM) Product name Red Blood Cells -1, Leukored [facility] DEPARTMENT OF PATHOLOGY AND GENOMIC MEDICINE Unit number [id number] [facility] DEPARTMENT OF PATHOLOGY AND GENOMIC MEDICINE Product code [id number] [facility] DEPARTMENT OF PATHOLOGY AND GENOMIC MEDICINE Dispense status Transfused [facility] DEPARTMENT OF PATHOLOGY AND GENOMIC MEDICINE Blood expiration date [facility] DEPARTMENT OF PATHOLOGY AND GENOMIC MEDICINE Blood type code 6200 [facility] DEPARTMENT OF PATHOLOGY AND GENOMIC MEDICINE Blood type A POSITIVE [facility] DEPARTMENT OF PATHOLOGY AND GENOMIC MEDICINE Product name Red Blood Cells -1, Leukored [facility] DEPARTMENT OF PATHOLOGY AND GENOMIC MEDICINE Unit number [id number] [facility] DEPARTMENT OF PATHOLOGY AND GENOMIC MEDICINE Product code [id number] [facility] DEPARTMENT OF PATHOLOGY AND GENOMIC MEDICINE Dispense status Transfused [facility] DEPARTMENT OF PATHOLOGY AND GENOMIC MEDICINE Blood expiration date [id number] [facility] DEPARTMENT OF PATHOLOGY AND GENOMIC MEDICINE Blood type code 6200 [facility] DEPARTMENT OF PATHOLOGY AND GENOMIC MEDICINE Blood type A POSITIVE [facility] DEPARTMENT OF PATHOLOGY AND GENOMIC MEDICINE Performing Organization Address [facility] Phone Number [address] [place] [address] PATHOLOGY AND GENOMIC MEDICINE * Type and screen (10/08/2017 4:04 PM) ABO grouping A [facility] DEPARTMENT OF PATHOLOGY AND GENOMIC MEDICINE Rh type POS [facility] DEPARTMENT OF PATHOLOGY AND GENOMIC MEDICINE Antibody screen NEG [facility] DEPARTMENT OF PATHOLOGY AND GENOMIC MEDICINE Specimen Blood Performing Organization Address [facility] Phone Number [address] [place] [address] PATHOLOGY AND GENOMIC MEDICINE * B natriuretic peptide (10/08/2017 4:04 PM) Only the most recent of 3 results within the time period is included. BNP 197 (H) 0 - 100 pg/mL [facility] DEPARTMENT OF PATHOLOGY AND GENOMIC MEDICINE Specimen Blood Performing Organization Address [facility] Phone Number [address] [place] [address] PATHOLOGY AND [facility] MEDICINE * Creatine kinase, total (CPK) (10/08/2017 4:04 PM) Only the most recent of 2 results within the time period is included. Creatine kinase 50 26 - 192 U/L [facility] DEPARTMENT PATHOLOGY AND GENOMIC MEDICINE Specimen Plasma specimen Performing Organization Address [facility] Phone Number [address] [place] [address] PATHOLOGY AND [facility] MEDICINE * CRITICAL CARE (10/08/2017 3:00 PM) Narrative Performed At Micha Nickerson DO 10/08/2017 8:26 PM Critical Care Performed by: MICHA NICKERSON Authorized by: MICHA NICKERSON Critical care provider statement: Critical care time (minutes): 60 Critical care end time: 10/08/2017 8:25 PM Critical care time was exclusive of: Separately billable procedures and treating other patients Critical care was necessary to treat or prevent imminent or life-threatening deterioration of the following conditions: Circulatory failure Critical care was time spent personally by me on the following activities: Ordering and performing treatments and interventions, ordering and review of laboratory studies, ordering and review of radiographic studies, pulse oximetry, re-evaluation of patient's condition and discussions with consultants Abrahan 'yes' if you are taking over critical care for this patient from another provider.: no * CRITICAL CARE (10/08/2017 3:00 PM) Narrative Performed At Micha Nickerson DO 10/08/2017 8:26 PM Critical Care Performed by: MICHA NICKERSON Authorized by: MICHA NICKERSON Critical care provider statement: Critical care time (minutes): 60 Critical care end time: 10/08/2017 5:31 PM Critical care time was exclusive of: Separately billable procedures and treating other patients Critical care was necessary to treat or prevent imminent or life-threatening deterioration of the following conditions: Circulatory failure Critical care was time spent personally by me on the following activities: Ordering and performing treatments and interventions, ordering and review of laboratory studies, ordering and review of radiographic studies, pulse oximetry, re-evaluation of patient's condition, review of old charts, discussions with consultants, evaluation of patient's response to treatment, examination of patient, development of treatment plan with patient or surrogate and obtaining history from patient or surrogate Abrahan 'yes' if you are taking over critical care for this patient from another provider.: no * CENTRAL LINE (10/08/2017 3:00 PM) Narrative Performed At Micha Nickerson DO 10/08/2017 8:26 PM Central Line Performed by: MICHA NICKERSON Authorized by: MICHA NICKERSON Consent: Consent obtained: Emergent situation Consent given by: Patient Risks discussed: Arterial puncture, pneumothorax, bleeding and infection Alternatives discussed: Delayed treatment and observation [place] protocol: Relevant documents present and verified: yes Test results available and properly labeled: yes Imaging studies available: yes Site/side marked: yes Immediately prior to procedure, a time out was called: yes Patient identity confirmed: Hospital-assigned identification number and arm band Pre-procedure details: Hand hygiene: Hand hygiene performed prior to insertion Sterile barrier technique: All elements of maximal sterile technique followed Skin preparation: Betadine Skin preparation agent: Skin preparation agent completely dried prior to procedure Anesthesia (see MAR for exact dosages): Anesthesia method: Local infiltration Local anesthetic: Lidocaine 1% w/o epi (3 cc) Procedure details: Catheter type: Triple lumen Catheter site: internal jugular vein Catheter Site Laterality: Left Patient position: Flat Landmarks identified: yes Ultrasound guidance: yes Sterile ultrasound techniques: Sterile gel and sterile probe covers were used Number of attempts: 1 Successful placement: yes Post-procedure details: Post-procedure: Dressing applied and line sutured Assessment: Blood return through all ports, free fluid flow, no pneumothorax on x-ray and placement verified by x-ray Patient tolerance of procedure: Tolerated well, no immediate complications * Vancomycin level, random (07/20/2017 1:40 PM) Only the most recent of 4 results within the time period is included. Vancomycin, random 16.2 ug/mL [facility] DEPARTMENT OF Comment: PATHOLOGY AND Therapeutic Ranges: GENOMIC MEDICINE Peak 30.0 - 40.0 ug/mL Trough 10.0 - 20.0 ug/mL Specimen Blood Performing Organization Address City/State/Zipcode Phone Number [place] [address] [place] [address] PATHOLOGY AND GENOMIC MEDICINE * Manual differential (07/20/2017 6:45 AM) Only the most recent of 14 results within the time period is included. Manual differential PERFORMED [facility] DEPARTMENT OF PATHOLOGY AND GENOMIC MEDICINE Neutrophils 78.0 (H) 36.0 - 66.0 % [facility] DEPARTMENT OF PATHOLOGY AND GENOMIC MEDICINE Lymphocytes 9.0 (L) 24.0 - 44.0 % [facility] DEPARTMENT OF PATHOLOGY AND GENOMIC MEDICINE Monocytes 9.0 (H) 0.0 - 6.0 % [facility] DEPARTMENT OF PATHOLOGY AND GENOMIC MEDICINE Eosinophils 1.0 0.0 - 6.0 % [facility] DEPARTMENT OF PATHOLOGY AND GENOMIC MEDICINE Basophils 0.0 0.0 - 1.2 % [facility] DEPARTMENT OF PATHOLOGY AND GENOMIC MEDICINE Metamyelocytes 0 0 - 1 % [facility] DEPARTMENT OF PATHOLOGY AND GENOMIC MEDICINE Myelocytes 3 (H) 0 - 1 % [facility] DEPARTMENT OF PATHOLOGY AND GENOMIC MEDICINE Promyelocytes 0 0 - 1 % [facility] DEPARTMENT OF PATHOLOGY AND GENOMIC MEDICINE Platelet slide review Hamida slt decr [facility] DEPARTMENT OF PATHOLOGY AND GENOMIC MEDICINE Toxic granulation Slight [facility] DEPARTMENT OF PATHOLOGY AND GENOMIC MEDICINE Anisocytosis slight [facility] DEPARTMENT OF PATHOLOGY AND GENOMIC MEDICINE Polychromasia slight [facility] DEPARTMENT OF PATHOLOGY AND GENOMIC MEDICINE Tear drop cells Occasional [facility] DEPARTMENT OF PATHOLOGY AND GENOMIC MEDICINE Ovalocytes rare [facility] DEPARTMENT OF PATHOLOGY AND GENOMIC MEDICINE Performing Organization Address City/State/Zipcode Phone Number [facility] OF [address] [place] [address] PATHOLOGY AND GENOMIC MEDICINE * Vancomycin level, trough (07/18/2017 12:20 PM) Only the most recent of 3 results within the time period is included. Vancomycin, trough 38.6 (HH) 10.0 - 20.0 ug/mL [facility] DEPARTMENT OF Comment: PATHOLOGY AND Therapeutic Ranges: GENOMIC MEDICINE Peak 30.0 - 40.0 ug/mL Trough 10.0 - 20.0 ug/mL Results called to and read back by __Crystal on 2E by tmg 07/18/2017 14:22 RPT 40.4 Specimen Blood Performing Organization Address City/State/Zipcode Phone Number [place] [address] [place] [address] PATHOLOGY AND GENOMIC MEDICINE * CT Chest Wo Contrast (07/17/2017 5:27 PM) Only the most recent of 2 results within the time period is included. Narrative Performed At EXAMINATION: CT CHEST WO CONTRAST [facility] CLINICAL HISTORY: pneumonia TECHNIQUE: Axial images of the chest were obtained without intravenous contrast. The lack of intravenous contrast reduces the sensitivity of the exam and evaluating vasculature. CT imaging was performed with iterative reconstruction technique and/or automated exposure control to reduce radiation dose. COMPARISON: 07/11/2017 IMPRESSION: CHEST: 1. Aorta: Calcification of the thoracic aorta is noted. No aneurysm. 2. Heart: The heart is enlarged. Coronary artery calcifications are present. Left chest wall transvenous pacer is noted. 3. Pericardial Fluid: No pericardial effusion. 4. Mediastinum: Small nonspecific mediastinal lymph nodes are noted. Slightly prominent subcarinal lymph nodes likely reactive. 5. Airways: Central airways are patent. 6. Lungs: * Large irregular cavitary lesion in the middle lobe demonstrates decrease in the degree of consolidation compatible with an improving lung abscess. * There is a new small tubular medial extension of air in the adjacent mediastinum best seen on series 2 image 53 and series 400 image 15 that could represent a developing broncho-mediastinal fistula. * This cavitary lesion communicates with a right upper lobe bulla/second thin-walled cavity best seen on series 4 image 17 which has decreased in size. * Nodular infiltrates in the periphery of the middle lobe seen on series 2 image 61 have improved. Nodular infiltrate just posterior and right lower lobe is stable. * Lower lobe bronchitis with bronchial secretions and bronchial wall thickening has increased with increasing basilar atelectasis. * Mild interstitial scarring. A few small patchy areas of groundglass pneumonitis have developed in the periphery of the left upper lobe. 7. Pleural Fluid: Tiny bilateral effusions have developed. 8. Bones: Degenerative changes of the osseous structures. No suspicious lesions. 9. Upper Abdomen: Cholecystectomy clips, inferior vena cava filter and biliary stent, nonobstructing calculus in the upper pole of the right kidney. 10. Other Findings: None [facility]-[id number] Procedure Note [facility], Radiology Results Incoming - 07/17/2017 6:28 PM [facility] EXAMINATION: CT CHEST WO CONTRAST CLINICAL HISTORY: pneumonia TECHNIQUE: Axial images of the chest were obtained without intravenous contrast. The lack of intravenous contrast reduces the sensitivity of the exam and evaluating vasculature. CT imaging was performed with iterative reconstruction technique and/or automated exposure control to reduce radiation dose. COMPARISON: 07/11/2017 IMPRESSION: CHEST: 1. Aorta: Calcification of the thoracic aorta is noted. No aneurysm. 2. Heart: The heart is enlarged. Coronary artery calcifications are present. Left chest wall transvenous pacer is noted. 3. Pericardial Fluid: No pericardial effusion. 4. Mediastinum: Small nonspecific mediastinal lymph nodes are noted. Slightly prominent subcarinal lymph nodes likely reactive. 5. Airways: Central airways are patent. 6. Lungs: * Large irregular cavitary lesion in the middle lobe demonstrates decrease in the degree of consolidation compatible with an improving lung abscess. * There is a new small tubular medial extension of air in the adjacent mediastinum best seen on series 2 image 53 and series 400 image 15 that could represent a developing broncho-mediastinal fistula. * This cavitary lesion communicates with a right upper lobe bulla/second thin- walled cavity best seen on series 4 image 17 which has decreased in size. * Nodular infiltrates in the periphery of the middle lobe seen on series 2 image 61 have improved. Nodular infiltrate just posterior and right lower lobe is stable. * Lower lobe bronchitis with bronchial secretions and bronchial wall thickening has increased with increasing basilar atelectasis. * Mild interstitial scarring. A few small patchy areas of groundglass pneumonitis have developed in the periphery of the left upper lobe. 7. Pleural Fluid: Tiny bilateral effusions have developed. 8. Bones: Degenerative changes of the osseous structures. No suspicious lesions. 9. Upper Abdomen: Cholecystectomy clips, inferior vena cava filter and biliary stent, nonobstructing calculus in the upper pole of the right kidney. 10. Other Findings: None [id number] Performing Organization Address City/[facility]/[place] [address] * AFB culture (07/17/2017 11:59 AM) Only the most recent of 4 results within the time period is included. AFB culture isolate No growth after 6 weeks of [facility] DEPARTMENT OF incubation. PATHOLOGY AND Comment: [employer] MEDICINE Specimen Information Specimen Source: Sputum Specimen Site: Expectorated Specimen Sputum - Expectorated Performing Organization Address [facility] [place] [address] PATHOLOGY AND GENOMIC MEDICINE * AFB stain (07/17/2017 11:59 AM) Only the most recent of 4 results within the time period is included. AFB stain No acid fast bacilli (AFB) [facility] DEPARTMENT OF seen. PATHOLOGY AND Comment: GENOMIC MEDICINE Specimen Information Specimen Source: Sputum Specimen Site: Expectorated Specimen Sputum - Expectorated Performing Organization Address [facility] Phone Number [facility] DEPARTMENT OF [address] [place] [address] PATHOLOGY AND GENOMIC MEDICINE * Respiratory culture (07/16/2017 1:52 PM) Only the most recent of 2 results within the time period is included. Respiratory culture Normal oral jovan and (A) [facility] DEPARTMENT OF isolate Comment: PATHOLOGY AND Specimen Information GENOMIC MEDICINE Specimen Source: Bronchial Washing Specimen Site: Washing Respiratory culture Staphylococcus aureus [facility] DEPARTMENT OF isolate Many PATHOLOGY AND susceptibility to follow [facility] This organism is Methicillin Resistant. (A) Specimen Bronchial washing - Washing Organism Antibiotic Method Susceptibility Staphylococcus aureus Ampicillin CARLOS ALBERTO mcg/mL: Resistant Staphylococcus aureus Clindamycin CARLOS ALBERTO >2 mcg/mL: Resistant Staphylococcus aureus Cefazolin CARLOS ALBERTO mcg/mL: Resistant Staphylococcus aureus Erythromycin CARLOS ALBERTO >4 mcg/mL: Resistant Staphylococcus aureus Linezolid CARLOS ALBERTO 2 mcg/mL: Susceptible Staphylococcus aureus Minocycline CARLOS ALBERTO <=1 mcg/mL: Susceptible Staphylococcus aureus Oxacillin CARLOS ALBERTO >2 mcg/mL: Resistant Staphylococcus aureus Penicillin G CARLOS ALBERTO >1 mcg/mL: Resistant Staphylococcus aureus Rifampin CARLOS ALBERTO <=0.5 mcg/mL: Susceptible Staphylococcus aureus Trimethoprim/Sulfamethoxa CARLOS ALBERTO <=0.5/9.5 mcg/mL: zole Susceptible Staphylococcus aureus Tetracycline CARLOS ALBERTO <=0.5 mcg/mL: Susceptible Staphylococcus aureus Vancomycin CARLOS ALBERTO 1 mcg/mL: Susceptible Performing Organization Address City/[facility] Phone Number [facility] DEPARTMENT OF [address] [place] [address] PATHOLOGY AND GENOMIC MEDICINE * Fungus smear (07/16/2017 1:52 PM) Fungus smear No fungi observed. [facility] DEPARTMENT OF Comment: PATHOLOGY AND Specimen Information GENOMIC MEDICINE Specimen Source: Bronchial Washing Specimen Site: Washing Specimen Bronchial washing - Washing Performing Organization Address [facility] Phone Number [facility] [place] [address] PATHOLOGY AND GENOMIC MEDICINE * Fungus culture (07/16/2017 1:52 PM) Fungus culture isolate No growth after 4 weeks of [facility] DEPARTMENT OF incubation. PATHOLOGY AND Comment: GENOMIC MEDICINE Specimen Information Specimen Source: Bronchial Washing Specimen Site: Washing Specimen Bronchial washing - Washing Performing Organization Address [facility] Phone Number [facility] DEPARTMENT OF [address] [place] [phone] PATHOLOGY AND GENOMIC MEDICINE * Cytology (non-gynecological) request (07/16/2017 9:28 AM) Only the most recent of 2 results within the time period is included. [facility] DE[facility]MENT OF PATHOLOGY AND GENOMIC MEDICINE Cytology See link below for PDF Lab [facility] DEPARTMENT OF (non-gynecological) Report PATHOLOGY AND report GENOMIC MEDICINE Result status This is Final Report to [facility] DEPARTMENT OF [id number] PATHOLOGY AND GENOMIC MEDICINE Performing Organization Address [facility] Phone Number [facility] DEPARTMENT [address] [place] [id number] PATHOLOGY AND GENOMIC MEDICINE * ECG ED Preliminary Interpretation - NOT AN ORDER (07/08/2017 6:40 PM) Only the most recent of 2 results within the time period is included. Narrative Performed At Marin Sexton MD 07/08/2017 6:40 PM ECG ED Preliminary Interpretation - Not an Order Performed by: MARIN SEXTON Authorized by: MARIN SEXTON ECG reviewed by ED Physician in the absence of a furniture finisher helper: yes Previous ECG: Previous ECG: Unavailable Interpretation: Interpretation: abnormal Rate: ECG rate: 82 ECG rate assessment: normal Rhythm: Rhythm: paced Pacing: Type of pacing: Ventricular Ectopy: Ectopy: none QRS: QRS axis: Normal QRS intervals: Normal Conduction: Conduction: normal ST segments: ST segments: Normal T waves: T waves: normal * Influenza antigen (07/08/2017 6:30 PM) Influenza antigen Positive for Influenza A [facility] DEPARTMENT OF antigen. PATHOLOGY AND Negative for Flu B GENOMIC MEDICINE (A) Comment: Specimen Information Specimen Source: Nares Specimen Site: Right Specimen Nares - Right Performing Organization Address City/State/Zipcode Phone Number [facility] DE[facility]MENT OF [address] [place] [address] PATHOLOGY AND GENOMIC MEDICINE * Blood culture, aerobic & anaerobic (07/08/2017 6:13 PM) Only the most recent of 4 results within the time period is included. Blood culture isolate No growth after 5 days of [facility] DEPARTMENT OF incubation. PATHOLOGY AND Comment: GENOMIC MEDICINE Specimen Information Specimen Source: Blood Specimen Site: right hand Specimen Blood Performing Organization Address City/State/Zipcode Phone Number [facility] DEPARTMENT OF [address] [place] [address] PATHOLOGY AND GENOMIC MEDICINE * XR Chest 2 Vw (07/08/2017 5:11 PM) Only the most recent of 2 results within the time period is included. Narrative Performed At EXAMINATION: XR CHEST 2 VW RADIANT CLINICAL HISTORY: SHORTNESS OF BREATH COMPARISON: 2 view chest from 04/16/2017 IMPRESSION: Consolidative airspace disease is noted within the right midlung concerning for an underlying pneumonia. No pleural effusion. No pneumothorax or midline shift. Emphysematous changes. The mediastinal contours and cardiac silhouette are unchanged. Atherosclerotic disease and cardiomegaly. Stable positioning of a left-sided ICD. The bones are unremarkable. [id number] Procedure Note Interface, Radiology Results Incoming - 07/08/2017 5:22 PM [facility] [employer] [facility] [facility] EXAMINATION: XR CHEST 2 VW CLINICAL HISTORY: SHORTNESS OF BREATH COMPARISON: 2 view chest from 04/16/2017 IMPRESSION: Consolidative airspace disease is noted within the right midlung concerning for an underlying pneumonia. No pleural effusion. No pneumothorax or midline shift. Emphysematous changes. The mediastinal contours and cardiac silhouette are unchanged. Atherosclerotic disease and cardiomegaly. Stable positioning of a left-sided ICD. The bones are unremarkable. [id number] Performing Organization Address [facility]/[place] [address] * Sedimentation rate (04/19/2017 11:55 AM) Sedimentation rate 88 (H) 0 - 20 mm/hr [facility] DEPARTMENT OF PATHOLOGY AND GENOMIC MEDICINE Specimen Blood Performing Organization Address [facility] Phone Number [facility] DEPARTMENT OF [address] [place] [address] PATHOLOGY AND GENOMIC MEDICINE * C-reactive protein (04/19/2017 11:55 AM) CRP 25.57 (H) 0.00 - 0.50 mg/dL [facility] DEPARTMENT OF PATHOLOGY AND GENOMIC MEDICINE Specimen Plasma specimen Performing Organization Address [facility] Phone Number [facility] DEPARTMENT OF [address] [place] [address] PATHOLOGY AND GENOMIC MEDICINE * CT Lower Extremity W Contrast Left (04/17/2017 6:00 PM) Narrative Performed At EXAMINATION: CT LOWER EXTREMITY W CONTRAST LEFT [facility] CLINICAL HISTORY: left ankle swelling and pain TECHNIQUE: Axial images of left ankle following IV administration of iodinated contrast. Images were acquired in bone and soft tissue algorithm with thin sections and multiplanar reformats archived and interpreted. .. All CT images were acquired using radiation dose lowering technique with automated exposure control and iterative reconstruction. COMPARISON: Radiograph, 04/16/2017 IMPRESSION: 1. Bones are demineralized. Mild degenerative spurring in the ankle. 2. Small osteochondral lesion along the medial margin of the talar dome measuring 7 mm transverse by 8 mm sagittal, though without unstable fragment identified, no flattening or collapse. 3. 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 Mild degenerative change elsewhere. 4. No evidence of osteolysis to indicate osteomyelitis. Os peroneum, anatomic variant. 5. The visualized muscles are diffusely replaced by fat, indicating prolonged immobility. Calcification within and surrounding the peroneal tendons indicating chronic tendinitis and tenosynovitis. 6. Small ankle joint effusion. This may be reactive to the osteochondral lesion. 7. Subcutaneous edema anteriorly and medially in the ankle extending into the dorsum of the foot indicating cellulitis or bland edema. No focal fluid collection to indicate an abscess. 8. Subcutaneous edema also posteriorly overlying the Achilles tendon likewise indicative of cellulitis or bland edema. The Achilles tendon itself appears well-maintained by CT. SUMMARY: Mild to moderate subcutaneous edema indicative of cellulitis or bland edema, though no abscess collection identified. A small talar osteochondral lesion, and a small tibiotalar joint effusion may be reactive to this. No evidence of osteomyelitis. Incidental and/or degenerative changes as above. [facility]-[id number] Procedure Note [facility], Radiology Results Incoming - 04/17/2017 7:11 PM CDT EXAMINATION: CT LOWER EXTREMITY W CONTRAST LEFT CLINICAL HISTORY: left ankle swelling and pain TECHNIQUE: Axial images of left ankle following IV administration of iodinated contrast. Images were acquired in bone and soft tissue algorithm with thin sections and multiplanar reformats archived and interpreted. .. All CT images were acquired using radiation dose lowering technique with automated exposure control and iterative reconstruction. COMPARISON: Radiograph, 04/16/2017 IMPRESSION: 1. Bones are demineralized. Mild degenerative spurring in the ankle. 2. Small osteochondral lesion along the medial margin of the talar dome measuring 7 mm transverse by 8 mm sagittal, though without unstable fragment identified, no flattening or collapse. 3. 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 Mild degenerative change elsewhere. 4. No evidence of osteolysis to indicate osteomyelitis. Os peroneum, anatomic variant. 5. The visualized muscles are diffusely replaced by fat, indicating prolonged immobility. Calcification within and surrounding the peroneal tendons indicating chronic tendinitis and tenosynovitis. 6. Small ankle joint effusion. This may be reactive to the osteochondral lesion. 7. Subcutaneous edema anteriorly and medially in the ankle extending into the dorsum of the foot indicating cellulitis or bland edema. No focal fluid collection to indicate an abscess. 8. Subcutaneous edema also posteriorly overlying the Achilles tendon likewise indicative of cellulitis or bland edema. The Achilles tendon itself appears well -maintained by CT. SUMMARY: Mild to moderate subcutaneous edema indicative of cellulitis or bland edema, though no abscess collection identified. A small talar osteochondral lesion, and a small tibiotalar joint effusion may be reactive to this. No evidence of osteomyelitis. Incidental and/or degenerative changes as above. [id number] Performing Organization Address City/[facility]/Zipcode Phone Number [facility] [address] [place] [address] * Uric acid level (04/17/2017 5:50 PM) Uric acid 7.5 (H) 2.4 - 5.7 mg/dL [facility] DEPARTMENT OF PATHOLOGY AND GENOMIC MEDICINE Specimen Plasma specimen Performing Organization Address City/[facility] Phone Number [facility] DEPARTMENT [address] [address] PATHOLOGY AND GENOMIC MEDICINE * XR Ankle 3+ Vw Left (04/16/2017 4:34 PM) Narrative Performed At EXAMINATION: XR ANKLE 3 VW LEFT [facility] CLINICAL HISTORY: LIMITED MOVEMENT ANKLE, recent fall trauma COMPARISON: None. IMPRESSION: Questionable lucency through the medial malleolus. Correlate for point tenderness. CT or MRI may be obtained for further evaluation as indicated to exclude fracture. There is also a subtle lucency in the medial aspect of the talar dome. Osteochondral defect is not excluded and could be evaluated with MRI as well. There is extensive soft tissue swelling diffusely. Plantar calcaneal spur and Achilles enthesophyte noted. [facility]-[id number] Procedure Note Interface, Radiology Results Incoming - 04/16/2017 4:53 PM CDT EXAMINATION: XR ANKLE 3 VW LEFT CLINICAL HISTORY: LIMITED MOVEMENT ANKLE, recent fall trauma COMPARISON: None. IMPRESSION: Questionable lucency through the medial malleolus. Correlate for point tenderness. CT or MRI may be obtained for further evaluation as indicated to exclude fracture. There is also a subtle lucency in the medial aspect of the talar dome. Osteochondral defect is not excluded and could be evaluated with MRI as well. There is extensive soft tissue swelling diffusely. Plantar calcaneal spur and Achilles enthesophyte noted. [id number] Performing Organization Address City/State/Zipcode Phone Number [facility] [address] [place] [address] * Salmonella/shigella culture (04/15/2017 2:14 PM) Salmonella/shigella No Aeromonas isolated [facility] DEPARTMENT OF culture isolate Comment: PATHOLOGY AND Specimen Information GENOMIC MEDICINE Specimen Source: Stool Specimen Site: Nonpreserved Specimen Stool - Nonpreserved Performing Organization Address City/[facility]/Zipcode Phone Number [facility] DEPARTMENT OF [address] [place] [address] PATHOLOGY AND GENOMIC MEDICINE * Total iron binding capacity (04/14/2017 4:50 AM) Iron level 38 37 - 145 ug/dL [facility] DEPARTMENT OF PATHOLOGY AND GENOMIC MEDICINE Iron binding capacity 138 (L) 200 - 400 ug/dL [facility] DEPARTMENT OF PATHOLOGY AND GENOMIC MEDICINE % Saturation 27.5 15.0 - 38.0 % [facility] DEPARTMENT OF PATHOLOGY AND GENOMIC MEDICINE Specimen Plasma specimen Performing Organization Address City/[facility] [place] [address] PATHOLOGY AND GENOMIC MEDICINE * Immunofixation, serum (04/14/2017 4:50 AM) Immunofixation, serum SEE COMMENTComment: See [facility] DEPARTMENT OF electrophoresis report below. PATHOLOGY AND GENOMIC MEDICINE Specimen Serum Performing Organization Address [facility] [place] [address] PATHOLOGY AND GENOMIC MEDICINE * Reticulocyte count (04/14/2017 4:50 AM) Retic %, auto 2.3 (H) 0.5 - 2.1 % [facility] DEPARTMENT OF PATHOLOGY AND GENOMIC MEDICINE Retic absolute, auto 0.0640 0.0210 - 0.1155 m/uL [facility] DEPARTMENT OF PATHOLOGY AND GENOMIC MEDICINE Specimen Blood Performing Organization Address [facility] Phone Number [facility] [place] [address] PATHOLOGY AND GENOMIC MEDICINE * Thyroid stimulating hormone (04/14/2017 4:50 AM) TSH 2.49 0.27 - 4.20 uIU/mL [facility] DEPARTMENT OF PATHOLOGY AND GENOMIC MEDICINE Specimen Plasma specimen Performing Organization Address [facility] [place] [address] PATHOLOGY AND GENOMIC MEDICINE * Serum electrophoresis (04/14/2017 4:50 AM) Protein 4.9 (L) 6.3 - 8.3 g/dL [facility] DEPARTMENT OF Comment: PATHOLOGY AND [place] GENOMIC MEDICINE 4.6-7.0 g/dL 1 week 4.4-7.6 g/dL 7 months-1year 5.1-7.3 g/dL 1-2 years 5.6-7 .5 g/dL >3 years 6.0-8 .0 g/dL 18-150 6.3-8.3 g/dL SPE albumin 2.40 (L) 4.00 - 5.30 g/dL [facility] DEPARTMENT OF PATHOLOGY AND GENOMIC MEDICINE SPE alpha 1 0.33 (H) 0.10 - 0.25 g/dL [facility] DEPARTMENT OF PATHOLOGY AND GENOMIC MEDICINE SPE alpha 2 0.95 (H) 0.58 - 0.84 g/dL [facility] DEPARTMENT OF PATHOLOGY AND GENOMIC MEDICINE SPE beta 0.78 0.50 - 1.10 g/dL [facility] DEPARTMENT OF PATHOLOGY AND GENOMIC MEDICINE SPE gamma 0.45 (L) 0.60 - 1.30 g/dL [facility] DEPARTMENT OF PATHOLOGY AND GENOMIC MEDICINE SPE extended See Comment [facility] DEPARTMENT OF interpretation Comment: PATHOLOGY AND Total protein and albumin are GENOMIC MEDICINE decreased while the concentrations of alpha-1 globulins and alpha-2 globulins are increased indicating an acute phase response to infection, inflammation or tissue injury. Gamma globulins are slightly decreased. No monoclonal bands are seen on immunofixation. SPE interpretation See CommentComment: Marin [facility] DEPARTMENT OF MD Channing; Quintin Alfredo, PATHOLOGY AND PhD; Sandrita Schneider, PhD; Demarco [facility] MEDICINE MD Jaxson PhD Specimen Serum Performing Organization Address City/[facility]/[place] [address] PATHOLOGY AND [facility] MED[facility] * Ferritin level (04/14/2017 4:50 AM) Ferritin level 281 (H) 13 - 150 ng/mL [facility] DEPARTMENT OF PATHOLOGY AND GENOMIC [facility] Specimen Plasma specimen Performing Organization Address City/[facility]/[place] [address] PATHOLOGY AND [facility] MEDICINE * Vitamin B12 level (04/14/2017 4:50 AM) Vitamin B12 411 211 - 946 pg/mL [facility] DEPARTMENT OF Comment: PATHOLOGY AND Significant overlap exists GENOMIC MEDICINE between normal and deficiency states. However, most patients with deficiencies will have Serum B12 <200 pg/mL. Specimen Serum Performing Organization Address City/[facility]/[place] [address] PATHOLOGY AND [facility] MEDICINE * C difficile toxin (04/13/2017 3:19 PM) Clostridium difficile No Clostridium difficle toxin [facility] DEPARTMENT OF toxin present PATHOLOGY AND Comment: GENOMIC MEDICINE Specimen Information Specimen Source: Stool Specimen Site: Per rectum Specimen Stool - Per rectum Performing Organization Address [facility]/Zipcode Phone Number [facility] [place] [address] PATHOLOGY AND GENOMIC MEDICINE * Respiratory pathogen panel (04/12/2017 11:30 PM) Respiratory pathogen Negative for all pathogens [facility] DEPARTMENT OF panel tested: PATHOLOGY AND Negative for Adenovirus GENOMIC [facility] Negative for Coronavirus HKU1 Negative for Coronavirus NL63 Negative for Coronavirus 229E Negative for Coronavirus OC43 Negative for Human Metapneumovirus Negative for Rhinovirus/Enterovirus Negative for Influenza A Negative for Influenza A/H1 Negative for Influenza A/H3 Negative for Influenza A/H1-2009 Negative for Influenza B Negative for Parainfluenza Virus 1 Negative for Parainfluenza Virus 2 Negative for Parainfluenza Virus 3 Negative for Parainfluenza Virus 4 Negative for Respiratory Syncytial Virus Negative for Bordetella pertussis Negative for Chlamydophila pneumoniae Negative for Mycoplasma pneumoniae This real-time PCR assay detects the presence of nucleic acids (RNA or DNA) for the respiratory pathogens listed. A result of "Not-detected" does not exclude the possibility of the presence of one or more pathogens at concentrations less than the detectable limits of the assay. Comment: Specimen Information Specimen Source: Nares Specimen Site: Not specified Specimen Nares - Not specified Performing Organization Address [facility] Phone Number [facility] [place] [address] PATHOLOGY AND GENOMIC MEDICINE * Urea nitrogen, urine, random (04/12/2017 11:30 PM) Urea nitrogen, urine, 733 mg/dL [facility] DEPARTMENT OF random PATHOLOGY AND GENOMIC MEDICINE Specimen Urine Performing Organization Address City/[facility]/Zipcode Phone Number [facility] [place] [address] PATHOLOGY AND GENOMIC MEDICINE * Streptococcus pneumoniae urinary antigen (04/12/2017 11:30 PM) Strep pneumo urinary Ag Negative for Streptococcus [facility] DEPARTMENT OF pneumoniae antigen. PATHOLOGY AND Comment: GENOMIC MEDICINE Specimen Information Specimen Source: Urine Specimen Site: Catheterized Specimen Urine - Catheterized Performing Organization Address City/[facility]/Zipcode Phone Number [facility] [place] [address] PATHOLOGY AND GENOMIC MEDICINE * Legionella urinary antigen (04/12/2017 11:30 PM) Legionella urinary Negative for Legionella [facility] DEPARTMENT OF antigen serogroup 1 antigen. PATHOLOGY AND Comment: GENOMIC MEDICINE Specimen Information Specimen Source: Urine Specimen Site: Catheterized Specimen Urine - Catheterized Performing Organization Address City/State/Zipcode Phone Number [facility] [place] [address] PATHOLOGY AND GENOMIC MEDICINE * Sodium level, urine, random (04/12/2017 11:30 PM) Sodium, urine, random 97 mEq/L [facility] DEPARTMENT OF PATHOLOGY AND GENOMIC MEDICINE Specimen Urine Performing Organization Address [facility] Phone Number [facility] [place] [address] PATHOLOGY AND GENOMIC MEDICINE * Creatinine level, urine, random (04/12/2017 11:30 PM) Creatinine, urine, random 69 mg/dL [facility] DEPARTMENT OF PATHOLOGY AND GENOMIC MEDICINE Specimen Urine Performing Organization Address [facility] Phone Number [facility] [place] [address] PATHOLOGY AND GENOMIC MEDICINE * Chloride level, urine, random (04/12/2017 11:30 PM) Chloride, urine, random 74 mEq/L [facility] DEPARTMENT OF PATHOLOGY AND GENOMIC MEDICINE Specimen Urine Performing Organization Address City/[facility] Phone Number [facility] [place] [address] PATHOLOGY AND GENOMIC MEDICINE * Sputum culture (04/12/2017 4:45 PM) Sputum culture isolate Normal oral jovan and (A) [facility] DEPARTMENT OF Comment: PATHOLOGY AND Specimen Information GENOMIC MEDICINE Specimen Source: Sputum Specimen Site: Expectorated Sputum culture isolate Enterococcus faecalis [facility] DEPARTMENT OF Many PATHOLOGY AND [facility] [employer] MEDICINE characteristics of this assay on this isolate were validated by the Microbiology Laboratory at [facility]. This source has not been approved by the U.S. Food and Drug Administration. The results are not intended to be used as the sole means for clinical diagnosis or patient management. The Microbiology Laboratory is authorized under the clinical Laboratory Improvement Amendments of 1988 (CLIA-88) to perform high complexity testing. Enterococcus susceptible to high levels of Gentamicin. Susceptibility results indicate synergy with Penicillins and Vancomycin. (A) Specimen Sputum - Expectorated Organism Antibiotic Method Susceptibility Enterococcus faecalis Ampicillin CARLOS ALBERTO 1 mcg/mL: Susceptible Enterococcus faecalis Erythromycin CARLOS ALBERTO 2 mcg/mL: Resistant Enterococcus faecalis Gentamicin-Syn CARLOS ALBERTO <=500 mcg/mL: Susceptible Enterococcus faecalis Linezolid CARLOS ALBERTO <=1 mcg/mL: Susceptible Enterococcus faecalis Minocycline CARLOS ALBERTO <=1 mcg/mL: Susceptible Enterococcus faecalis Vancomycin CARLOS ALBERTO 1 mcg/mL: Susceptible Performing Organization Address [facility] Phone Number [facility] DEPARTMENT [address] [place] [address] PATHOLOGY AND GENOMIC MEDICINE * XR Hips Bilateral Ap Lateral W Ap Pelvis (04/12/2017 2:41 PM) Narrative Performed At EXAMINATION: XR HIPS BILATERAL AP LATERAL W AP PELVIS [facility] CLINICAL HISTORY: BONE PAIN HIP COMPARISON: None. IMPRESSION: 1. The pelvic ring is intact. The pubic symphysis and sacroiliac joints are patent. 2. There are symmetric in alignment. There is articular sclerosis involving the right and left hips. 3. No evidence to suggest an acute fracture. 4. There are degenerative changes involving the lower lumbar spine. [facility]-[id number] Procedure Note Interface, Radiology Results Incoming - 04/12/2017 2:52 PM CDT EXAMINATION: XR HIPS BILATERAL AP LATERAL W AP PELVIS CLINICAL HISTORY: BONE PAIN HIP COMPARISON: None. IMPRESSION: 1. The pelvic ring is intact. The pubic symphysis and sacroiliac joints are patent. 2. There are symmetric in alignment. There is articular sclerosis involving the right and left hips. 3. No evidence to suggest an acute fracture. 4. There are degenerative changes involving the lower lumbar spine. [facility]-[id number] Performing Organization Address [facility] Phone Number [facility] [address] [place] [address] * XR Lumbar Spine 2 Or 3 Vw (04/12/2017 2:41 PM) Narrative Performed At EXAMINATION: XR LUMBAR SPINE 2 OR 3 VW [facility] CLINICAL HISTORY: BACK PAIN AFTER TRAUMA COMPARISON: May 27, 2016 IMPRESSION: 3 views of lumbar spine were obtained. New T12 compression fracture with approximately 50% loss of height. New mild superior endplate compression deformity of L1. Findings could be further evaluated with MRI. 5 nonrib-bearing lumbar type vertebrae. There is mild convexity upper lumbar spine to the right and lower lumbar spine to the left. Generalized osteopenia. Multilevel disc space narrowing and endplate degenerative changes worst at L4- 5. [facility]-[id number] Procedure Note Interface, Radiology Results Incoming - 04/12/2017 2:46 PM CDT EXAMINATION: XR LUMBAR SPINE 2 OR 3 VW CLINICAL HISTORY: BACK PAIN AFTER TRAUMA COMPARISON: May 27, 2016 IMPRESSION: 3 views of lumbar spine were obtained. New T12 compression fracture with approximately 50% loss of height. New mild superior endplate compression deformity of L1. Findings could be further evaluated with MRI. 5 nonrib-bearing lumbar type vertebrae. There is mild convexity upper lumbar spine to the right and lower lumbar spine to the left. Generalized osteopenia. Multilevel disc space narrowing and endplate degenerative changes worst at L4-5. [facility]-[id number] Performing Organization Address City/State/Zipcode Phone Number [facility] [address] [place] [address] after 03/21/2017 Insurance Payer Benefit Subscriber ID Type Phone Address Plan / Group MEDICARE MEDICARE xxxxxxxxxx Medicare [place], [place] PART A AND B COMMERCIAL MISC MISC xxxxxxxxx [place] [address]
--- OUTSIDE RECORDS SUMMARY | 2018-04-11 08:14 | XMS REPORT | Clinical Summary ---
Author Author [facility] Organization [facility] Address Unknown Phone Unavailable Care Team Providers Care Imaging Engineer Name Role Phone Asked, Pcp PCP Unavailable [...] venous 07/21/19 08/20/19 gram in 50 mL Add-[place] catheter daily for 30 18 18 days. [...] infectious organism 04/12/2017 ACS (acute coronary syndrome) ([facility]) 12/28/2016 Encounters Date Type Specialty Care Team Description 01/09/2018 Emergency Emergency Medicine Jennifer Krause, Fecal impaction (Primary MD Dx); Hemorrhoids, unspecified hemorrhoid type; Rectal pain 01/06/2018 Emergency Emergency Medicine Micha Nickerson DO Fecal impaction (Primary Dx); Urinary tract infection associated with indwelling urethral catheter, initial encounter 10/08/2017 [facility] General Internal Medicine Micha Nickerson DO Acute renal failure, - Encounter Natalie Alexandra MD unspecified acute renal 10/13/2017 failure type (Primary Dx); Acute CVA (cerebrovascular accident); Dehydration 07/19/2017 Procedure Pass Gastroenterology 07/19/2017 Surgery Gastroenterology Carley Gerardo MD BRONCHOSCOPY 07/16/2017 Procedure Pass Gastroenterology 07/16/2017 Surgery Gastroenterology Carley Gerardo MD BRONCHOSCOPY 07/13/2017 [facility] Ruben Higgins MD Encounter 07/12/2017 Procedure Pass Gastroenterology 07/12/2017 Surgery Gastroenterology Carley Gerardo MD BRONCHOSCOPY 07/08/2017 [facility] General Internal Medicine Falguni Diaz, Pneumonia of right lower - Encounter MD lobe due to infectious 07/20/2017 Marin Sexton MD organism (Primary Dx); Beatriz Philippe Shortness of breath; MD Aleja ACS (acute coronary syndrome) 04/12/2017 [facility] Obstetrics and Gynecology Sterling Felder Pneumonia due [...] SCREENING 10/11/2027 10/10/2017 Implants Implanted Type Area Dirt Supervisor Device Expiration Model / Identifier Date Serial / Lot Defibrillator Card Renal Technician - [id number] - Defibrilla [facility] - [id number] / [id number] tor ICD CARDIAC [id number] / Implanted: Qty: 1 on 03/16/2016 by Devices [facility] [id number] Aleksandar Philippe MD Aicd Procedures Procedure Name [...] Routine 10/09/2017 Results for this AGITATED SALINE (79388) 10:30 AM CDT procedure are in the [...] CDT procedure are in the results section. [facility], E[facility]M Routine 10/08/2017 Results for this 30-74 MINUTES 3:00 PM CDT procedure are in the results section. [facility], E/M Routine 10/08/2017 Results for this 30-74 MINUTES 3:00 PM CDT procedure are in the results section. [facility] INSERT NON-TUNNEL CV Routine 10/08/2017 Results for this CATH 3:00 PM CDT procedure are in the results section. VANCOMYCIN LEVEL, RANDOM Timed 07/20/2017 Results for this 1:40 PM [employer] procedure are in the results section. HEMOGLOBIN & HEMATOCRIT STAT 07/20/2017 Results for this 1:30 PM [employer] procedure are in the results section. MANUAL DIFFERENTIAL Routine 07/20/2017 Results for this 6:45 AM [employer] procedure are in the results section. ZZESTIMATED GFR Routine 07/20/2017 Results for this 6:45 AM [employer] procedure are in the results section. HEPATIC FUNCTION PANEL Routine 07/20/2017 Results for this 6:45 AM [employer] procedure are in the results section. BASIC METABOLIC PANEL Routine 07/20/2017 Results for this 6:45 AM [employer] procedure are in the results section. CBC WITH PLATELET AND Routine 07/20/2017 Results for this DIFFERENTIAL 6:45 AM [employer] procedure are in the results section. VANCOMYCIN LEVEL, RANDOM Timed 07/19/2017 Results for this 6:15 PM [employer] procedure are in the results section. BRONCHOSCOPY 07/19/2017 Pneumonia of right lower 11:30 AM [employer] lobe due to infectious organism VANCOMYCIN LEVEL, RANDOM Routine 07/19/2017 Results for this 6:11 AM [employer] procedure are in the results section. VANCOMYCIN LEVEL, TROUGH Timed 07/18/2017 Results for this 12:20 PM [employer] procedure are in the results section. URINALYSIS SCREEN AND Routine 07/18/2017 Results for this MICROSCOPY, WITH REFLEX 11:05 AM [employer] procedure are in the TO CULTURE results section. ZZESTIMATED GFR Routine 07/18/2017 Results for this 7:30 AM [employer] procedure are in the results section. PROTHROMBIN TIME WITH INR Routine 07/18/2017 Results for this 7:30 AM [employer] procedure are in the results section. HEPATIC FUNCTION PANEL Routine 07/18/2017 Results for this 7:30 AM [employer] procedure are in the results section. CBC WITH PLATELET AND Routine 07/18/2017 Results for this DIFFERENTIAL 7:30 AM [employer] procedure are in the results section. BASIC METABOLIC PANEL Routine 07/18/2017 Results for this 7:30 AM [employer] procedure are in the results section. CT CHEST WO CONTRAST STAT 07/17/2017 Results for this 5:27 PM [employer] procedure are in the results section. AFB STAIN Routine 07/17/2017 Results for this 11:59 AM [employer] procedure are in the results section. AFB CULTURE Routine 07/17/2017 Results for this 11:59 AM [employer] procedure are in the results section. MANUAL DIFFERENTIAL Routine 07/17/2017 Results for this 6:42 AM [employer] procedure are in the results section. ZZESTIMATED GFR Routine 07/17/2017 Results for this 6:42 AM [employer] procedure are in the results section. BASIC METABOLIC PANEL Routine 07/17/2017 Results for this 6:42 AM [employer] procedure are in the results section. CBC WITH PLATELET AND Routine 07/17/2017 Results for this DIFFERENTIAL 6:42 AM [employer] procedure are in the results section. AFB CULTURE Routine 07/16/2017 Results for this 11:54 PM [employer] procedure are in the results section. AFB STAIN Routine 07/16/2017 Results for this 11:54 PM [employer] procedure are in the results section. VANCOMYCIN LEVEL, TROUGH Routine 07/16/2017 Results for this 3:20 PM [employer] procedure are in the results section. AFB STAIN Routine 07/16/2017 Results for this 1:52 PM [employer] procedure are in the results section. FUNGUS SMEAR Routine 07/16/2017 Results for this 1:52 PM [employer] procedure are in the results section. FUNGUS CULTURE Routine 07/16/2017 Results for this 1:52 PM [employer] procedure are in the results section. AFB CULTURE Routine 07/16/2017 Results for this 1:52 PM [employer] procedure are in the results section. GRAM STAIN Routine 07/16/2017 Results for this 1:52 PM [employer] procedure are in the results section. RESPIRATORY CULTURE Routine 07/16/2017 Results for this 1:52 PM [employer] procedure are in the results section. BRONCHOSCOPY 07/16/2017 ACS (acute coronary 1:30 PM [employer] syndrome) CYTOLOGY Routine 07/16/2017 Results for this (NON-GYNECOLOGICAL) 9:28 AM [employer] procedure are in the REQUEST results section. MANUAL DIFFERENTIAL Routine 07/16/2017 Results for this 8:18 AM [employer] procedure are in the results section. ZZESTIMATED GFR Routine 07/16/2017 Results for this 8:18 AM [employer] procedure are in the results section. BASIC METABOLIC PANEL Routine 07/16/2017 Results for this 8:18 AM [employer] procedure are in the results section. CBC WITH PLATELET AND Routine 07/16/2017 Results for this DIFFERENTIAL 8:18 AM [employer] procedure are in the results section. XR CHEST 1 VW Routine 07/14/2017 Results for this 7:17 PM [employer] procedure are in the results section. AFB CULTURE Timed 07/14/2017 Results for this 6:11 PM [employer] procedure are in the results section. AFB STAIN Timed 07/14/2017 Results for this 6:11 PM [employer] procedure are in the results section. MANUAL DIFFERENTIAL Routine 07/14/2017 Results for this 6:12 AM [employer] procedure are in the results section. ZZESTIMATED GFR Routine 07/14/2017 Results for this 6:12 AM [employer] procedure are in the results section. BASIC METABOLIC PANEL Routine 07/14/2017 Results for this 6:12 AM [employer] procedure are in the results section. CBC WITH PLATELET AND Routine 07/14/2017 Results for this DIFFERENTIAL 6:12 AM [employer] procedure are in the results section. POC GLUCOSE Routine 07/12/2017 Results for this 1:54 PM [employer] procedure are in the results section. GRAM STAIN Routine 07/12/2017 Results for this 12:37 PM [employer] procedure are in the results section. RESPIRATORY CULTURE Routine 07/12/2017 Results for this 12:37 PM [employer] procedure are in the results section. BRONCHOSCOPY 07/12/2017 Pneumonia of right lower 12:00 PM [employer] lobe due to infectious organism CYTOLOGY Routine 07/12/2017 Results for this (NON-GYNECOLOGICAL) 9:17 AM [employer] procedure are in the REQUEST results section. MANUAL DIFFERENTIAL Routine 07/11/2017 Results for this 9:38 AM [employer] procedure are in the results section. ZZESTIMATED GFR Routine 07/11/2017 Results for this 9:38 AM [employer] procedure are in the results section. BASIC METABOLIC PANEL Routine 07/11/2017 Results for this 9:38 AM [employer] procedure are in the results section. CBC WITH PLATELET AND Routine 07/11/2017 Results for this DIFFERENTIAL 9:38 AM [employer] procedure are in the results section. CT CHEST WO CONTRAST Routine 07/11/2017 Results for this 7:23 AM [employer] procedure are in the results section. MANUAL DIFFERENTIAL Routine 07/10/2017 Results for this 5:05 AM [employer] procedure are in the results section. ZZESTIMATED GFR Routine 07/10/2017 Results for this 5:05 AM [employer] procedure are in the results section. BASIC METABOLIC PANEL Routine 07/10/2017 Results for this 5:05 AM [employer] procedure are in the results section. CBC WITH PLATELET AND Routine 07/10/2017 Results for this DIFFERENTIAL 5:05 AM [employer] procedure are in the results section. MANUAL DIFFERENTIAL Routine 07/09/2017 Results for this 2:59 PM [employer] procedure are in the results section. ZZESTIMATED GFR Routine 07/09/2017 Results for this 2:59 PM [employer] procedure are in the results section. BASIC METABOLIC PANEL Routine 07/09/2017 Results for this 2:59 PM [employer] procedure are in the results section. CBC WITH PLATELET AND Routine 07/09/2017 Results for this DIFFERENTIAL 2:59 PM [employer] procedure are in the results section. VANCOMYCIN LEVEL, RANDOM Routine 07/09/2017 Results for this 9:50 AM [employer] procedure are in the results section. ZZESTIMATED GFR STAT 07/08/2017 Results for this 7:54 PM [employer] procedure are in the results section. BASIC METABOLIC PANEL STAT 07/08/2017 Results for this 7:54 PM [employer] procedure are in the results section. TROPONIN Timed 07/08/2017 Results for this 7:54 PM [employer] procedure are in the results section. ECG ED PRELIMINARY Routine 07/08/2017 Results for this INTERPRETATION 6:40 PM [employer] procedure are in the results section. INFLUENZA ANTIGEN Routine 07/08/2017 Results for this 6:30 PM [employer] procedure are in the results section. LACTIC ACID LEVEL Timed 07/08/2017 Results for this 6:13 PM [employer] procedure are in the results section. BLOOD CULTURE, AEROBIC & Routine 07/08/2017 Results for this ANAEROBIC 6:13 PM [employer] procedure are in the results section. BLOOD CULTURE, AEROBIC & Routine 07/08/2017 Results for this ANAEROBIC 6:09 PM [employer] procedure are in the results section. XR CHEST 2 VW STAT 07/08/2017 Results for this 5:11 PM [employer] procedure are in the results section. MANUAL DIFFERENTIAL STAT 07/08/2017 Results for this 3:25 PM [employer] procedure are in the results section. ZZESTIMATED GFR STAT 07/08/2017 Results for this 3:25 PM [employer] procedure are in the results section. B NATRIURETIC PEPTIDE STAT 07/08/2017 Results for this 3:25 PM [employer] procedure are in the results section. TROPONIN STAT 07/08/2017 Results for this 3:25 PM [employer] procedure are in the results section. CREATINE KINASE, TOTAL STAT 07/08/2017 Results for this (CPK) 3:25 PM [employer] procedure are in the results section. COMPREHENSIVE METABOLIC STAT 07/08/2017 Results for this PANEL 3:25 PM [employer] procedure are in the results section. PROTHROMBIN TIME WITH INR STAT 07/08/2017 Results for this 3:25 PM [employer] procedure are in the results section. CBC WITH PLATELET AND STAT 07/08/2017 Results for this DIFFERENTIAL 3:25 PM [employer] procedure are in the results section. ECG 12-LEAD STAT 07/08/2017 Results for this 2:48 PM [employer] procedure are in the results section. MANUAL [...] Performed At EXAM: XR ABDOMEN 1 VW [facility] CLINICAL: constipation COMPARISON: 01/06/2018 CT IMPRESSION: 1. Moderate stool in the colon, possible constipation. 2. Nonspecific bowel gas pattern. 3. Generalized bone demineralization and degenerative changes. 4. IVC filter. Likely broken filter leg in the right kidney, similar to prior studies. 5. Cholecystectomy. [id number] Procedure Note Interface, Radiology Results Incoming - 01/09/2018 5:07 PM CDT EXAM: XR ABDOMEN 1 VW CLINICAL: constipation COMPARISON: 01/06/2018 CT IMPRESSION: 1. Moderate stool in the colon, possible constipation. 2. Nonspecific bowel gas pattern. 3. Generalized bone demineralization and degenerative changes. 4. IVC filter. Likely broken filter leg in the right kidney, similar to prior studies. 5. Cholecystectomy. [id number] Performing Organization Address City/State/Zipcode Phone Number [facility] [address] [place] [address] * Lactic acid level, SEPSIS - Now and repeat 2x every 3 hours (01/09/2018 4:57 PM) Only the most recent of 4 results within the time period is included. Lactic acid 1.4 0.5 - 2.2 mmol/L [facility] DEPARTMENT OF PATHOLOGY AND GENOMIC MEDICINE Specimen Blood Performing Organization Address City/State/Zipcode Phone Number [place] [address] [place] [address] PATHOLOGY AND GENOMIC MEDICINE * Estimated GFR (01/09/2018 4:57 PM) Only the most recent of 27 results within the time period is included. GFR Non Af Amer 44 (A) mL/min/1.73 m2 [facility] DEPARTMENT OF PATHOLOGY AND GENOMIC MEDICINE GFR Af Amer 53 (A) mL/min/1.73 m2 [facility] DEPARTMENT OF Comment: PATHOLOGY AND Chronic kidney [...] specimen Performing Organization Address City/State/Zipcode Phone Number [facility] [address] [place] [address] PATHOLOGY AND [facility] * CBC with platelet and differential (01/09/2018 4:57 PM) Only the most recent of 25 results within the time period is included. WBC 8.8 4.2 - 11.0 k/uL [facility] DEPARTMENT PATHOLOGY AND GENOMIC MEDICINE RBC 3.22 (L) 4.04 - 5.86 m/uL [facility] PATHOLOGY AND GENOMIC MEDICINE HGB 10.3 (L) 11.5 - 15.3 g/dL [facility] PATHOLOGY AND GENOMIC MEDICINE HCT 32.7 (L) 34.0 - 45.0 % [facility] PATHOLOGY AND GENOMIC MEDICINE MCV 101.6 (H) 80.0 - 98.0 fL [facility] DEPARTMENT PATHOLOGY AND GENOMIC MEDICINE MCH 32.0 27.0 - 34.0 pg [facility] DEPARTMENT PATHOLOGY AND GENOMIC MEDICINE MCHC 31.5 31.5 - 36.5 g/dL [facility] PATHOLOGY AND GENOMIC MEDICINE RDW - SD 55.2 (H) 37.0 - 51.0 fL [facility] PATHOLOGY AND GENOMIC MEDICINE MPV 11.0 (H) 7.4 - 10.4 fL [facility] DEPARTMENT PATHOLOGY AND GENOMIC MEDICINE Platelet count 128 (L) 150 - 400 k/uL [facility] PATHOLOGY AND [facility] Nucleated RBC 0.00 /100 WBC [facility] DEPARTMENT OF PATHOLOGY AND GENOMIC MEDICINE Neutrophils 85.5 (H) 36.0 - 66.0 % [facility] DEPARTMENT PATHOLOGY AND GENOMIC MEDICINE Lymphocytes 9.6 (L) 24.0 - 44.0 % [facility] DEPARTMENT OF PATHOLOGY AND GENOMIC MEDICINE Monocytes 3.4 0.0 - 6.0 % [facility] DEPARTMENT OF PATHOLOGY AND GENOMIC MEDICINE Eosinophils 0.2 0.0 - 6.0 % [facility] DEPARTMENT OF PATHOLOGY AND GENOMIC MEDICINE Basophils 0.2 0.0 - 1.2 % [facility] DEPARTMENT OF PATHOLOGY AND GENOMIC MEDICINE Immature granulocytes 1.1 (H) 0.0 - 1.0 % [facility] DEPARTMENT OF PATHOLOGY AND GENOMIC MEDICINE Specimen Blood Performing Organization Address City/[facility] [place] [address] PATHOLOGY AND GENOMIC MEDICINE * Lipase level (01/09/2018 4:57 PM) Only the most recent of 2 results within the time period is included. Lipase 10 (L) 13 - 60 U/L [facility] DEPARTMENT PATHOLOGY AND GENOMIC MEDICINE Specimen Plasma specimen Performing Organization Address [facility] [place] [address] PATHOLOGY [facility] * Hepatic function panel (01/09/2018 4:57 PM) Only the most recent of 3 results within the time period is included. Albumin 2.6 (L) 3.5 - 5.0 g/dL [facility] DEPARTMENT OF PATHOLOGY AND GENOMIC MEDICINE Total bilirubin 0.5 0.2 - 1.2 mg/dL [facility] DEPARTMENT OF PATHOLOGY AND GENOMIC MEDICINE Bilirubin direct <0.2 0.0 - 0.4 mg/dL [facility] DEPARTMENT OF PATHOLOGY AND GENOMIC MEDICINE Alkaline phosphatase 231 (H) 0 - 104 U/L [facility] DEPARTMENT OF PATHOLOGY AND GENOMIC MEDICINE Protein 5.8 (L) 6.3 - 8.3 g/dL [facility] DEPARTMENT OF PATHOLOGY AND GENOMIC MEDICINE ALT 23 5 - 50 U/L [facility] DEPARTMENT OF PATHOLOGY AND GENOMIC MEDICINE AST 34 10 - 35 U/L [facility] DEPARTMENT OF PATHOLOGY AND GENOMIC MEDICINE Specimen Plasma specimen Performing Organization Address [facility] [place] [place] [address] PATHOLOGY AND [facility] * Basic metabolic panel (01/09/2018 4:57 PM) Only the most recent of 24 results within the time period is included. Sodium 142 135 - 150 mEq/L [facility] DEPARTMENT PATHOLOGY AND GENOMIC MEDICINE Potassium 3.4 (L) 3.5 - 5.0 mEq/L [facility] DEPARTMENT OF PATHOLOGY AND GENOMIC MEDICINE Chloride 98 98 - 112 mEq/L [facility] DEPARTMENT OF PATHOLOGY AND GENOMIC MEDICINE CO2 33 (H) 24 - 31 mmol/L [facility] DEPARTMENT OF PATHOLOGY AND GENOMIC MEDICINE Anion gap 11@ANIO 7 - 15 mEq/L [facility] DEPARTMENT OF PATHOLOGY AND GENOMIC MEDICINE BUN 26 (H) 7 - 18 mg/dL [facility] DEPARTMENT OF PATHOLOGY AND GENOMIC MEDICINE Creatinine 1.20 (H) 0.50 - 0.90 mg/dL [facility] DEPARTMENT OF PATHOLOGY AND GENOMIC MEDICINE Glucose 150 (H) 65 - 100 mg/dL [facility] DEPARTMENT OF PATHOLOGY AND GENOMIC MEDICINE Calcium 8.4 (L) 8.8 - 10.2 mg/dL [facility] DEPARTMENT OF PATHOLOGY AND GENOMIC MEDICINE Specimen Plasma specimen Performing Organization Address City/State/Zipcode Phone Number [place] [phone] [place] [address] PATHOLOGY AND GENOMIC MEDICINE * GENERAL (01/09/2018 [...] period is included. Specimen site Clean catch [facility] DEPARTMENT OF PATHOLOGY AND GENOMIC MEDICINE Color, UA Yellow [facility] DEPARTMENT OF PATHOLOGY AND GENOMIC MEDICINE Appearance, UA Clear [facility] DEPARTMENT OF PATHOLOGY AND GENOMIC MEDICINE Specific gravity, UA 1.013 1.001 - 1.035 [facility] DEPARTMENT OF PATHOLOGY AND GENOMIC MEDICINE pH, UA 7.0 5.0 - 8.5 [facility] DEPARTMENT OF PATHOLOGY AND GENOMIC MEDICINE Protein, UA Negative Negative [facility] DEPARTMENT OF PATHOLOGY AND GENOMIC MEDICINE Glucose, UA Negative Negative [facility] DEPARTMENT OF PATHOLOGY AND GENOMIC MEDICINE Ketones, UA Negative Negative [facility] DEPARTMENT OF PATHOLOGY AND GENOMIC MEDICINE Bilirubin, UA Negative Negative [facility] DEPARTMENT OF PATHOLOGY AND GENOMIC MEDICINE Blood, UA Moderate (A) Negative [facility] DEPARTMENT OF PATHOLOGY AND GENOMIC MEDICINE Nitrite, UA Negative Negative [facility] DEPARTMENT OF PATHOLOGY AND GENOMIC MEDICINE Urobilinogen, UA Negative <2.0 [facility] DEPARTMENT OF PATHOLOGY AND GENOMIC MEDICINE Leukocyte esterase, UA Large (A) Negative [facility] DEPARTMENT OF PATHOLOGY AND GENOMIC MEDICINE WBC, UA 10-15 (H) 0 - 4 /HPF [facility] DEPARTMENT OF PATHOLOGY AND GENOMIC MEDICINE RBC, UA 10-15 (H) 0 - 5 /HPF [facility] DEPARTMENT OF PATHOLOGY AND GENOMIC MEDICINE Bacteria, UA None seen None seen [facility] DEPARTMENT OF PATHOLOGY AND GENOMIC MEDICINE Yeast, UA None seen [facility] DEPARTMENT OF PATHOLOGY AND GENOMIC MEDICINE Yeast with pseudohyphae, None seen [facility] DEPARTMENT OF PATHOLOGY AND GENOMIC MEDICINE Specimen Urine Performing Organization Address City/[facility] Phone Number [facility] DEPARTMENT OF [address] [place] [address] [place] [address] PATHOLOGY AND GENOMIC MEDICINE * Gram stain (01/06/2018 7:18 PM) Only the most recent of 6 results within the time period is included. Gram stain result No WBC's [facility] DEPARTMENT OF Many Gram negative rods PATHOLOGY AND Comment: GENOMIC MEDICINE Specimen Information Specimen Source: Urine Specimen Site: Clean catch Specimen Urine Performing Organization Address City/[facility]/Zipcode Phone Number [facility] DEPARTMENT OF [address] [place] [phone] PATHOLOGY AND GENOMIC MEDICINE * Urine culture (01/06/2018 7:18 PM) Only the most recent of 4 results within the time period is included. Urine culture isolate Mixed Gram negative rods [facility] DEPARTMENT OF >10-5 cfu/ml PATHOLOGY AND (A) GENOMIC MEDICINE Comment: Specimen Information Specimen Source: Urine Specimen Site: Clean catch Specimen Urine Performing Organization Address City/[facility]/Zipcode Phone Number [facility] DEPARTMENT OF [address] [place] [address] PATHOLOGY AND GENOMIC MEDICINE * CT Abdomen [...] of diverticulitis. 4. Additional findings as above. [id number] Procedure Note Hm Interface, Radiology Results Incoming [...] of diverticulitis. 4. Additional findings as above. [id number] Performing Organization Address City/[facility]/Zipcode Phone Number [facility] [address] [place] [address] * Partial thromboplastin time, activated (01/06/2018 6:03 PM) Only the most recent of 2 results within the time period is included. PTT 35.1 23.0 - 36.0 sec [facility] DEPARTMENT OF Comment: PATHOLOGY AND PTT therapeutic range for [facility] unfractionated heparin is 61.0-112.0 seconds which corresponds to Anti-Xa 0.3-0.7 U/ml. Specimen Blood Performing Organization Address [facility] Phone Number [address] [place] [phone] PATHOLOGY AND [facility] * Prothrombin time with INR (01/06/2018 6:03 PM) Only the most recent of 4 results within the time period is included. Prothrombin time 33.5 (H) 12.0 - 15.0 sec [facility] DEPARTMENT OF PATHOLOGY AND [facility] MEDICINE INR 3.2 [facility] DEPARTMENT OF Comment: PATHOLOGY AND The International Normalized GENOMIC MEDICINE Ratio (INR) is a therapeutic monitoring tool for patients who are stable on oral anticoagulant therapy. An INR of 2.0-3.0 is suggested for deep vein thrombosis/pulmonary embolism. Specimen Blood Performing Organization Address [facility] Phone Number [facility] [id number] [place] [address] [place] [address] PATHOLOGY AND Wagon MEDICINE * Comprehensive metabolic panel (01/06/2018 6:03 PM) Only the most recent of 3 results within the time period is included. Sodium 143 135 - 148 mEq/L [facility] DEPARTMENT OF PATHOLOGY AND GENOMIC MEDICINE Potassium 3.3 (L) 3.5 - 5.0 mEq/L [facility] DEPARTMENT OF PATHOLOGY AND GENOMIC MEDICINE Chloride 99 98 - 112 mEq/L [facility] DEPARTMENT OF PATHOLOGY AND GENOMIC MEDICINE CO2 30 24 - 31 mEq/L [facility] DEPARTMENT OF PATHOLOGY AND GENOMIC MEDICINE Anion gap 14@ANIO 7 - 15 mEq/L [facility] DEPARTMENT OF PATHOLOGY AND GENOMIC MEDICINE BUN 37 (H) 8 - 23 mg/dL [facility] DEPARTMENT OF PATHOLOGY AND GENOMIC MEDICINE Creatinine 1.2 (H) 0.5 - 0.9 mg/dL [facility] DEPARTMENT OF PATHOLOGY AND GENOMIC MEDICINE Glucose 71 65 - 99 mg/dL [facility] DEPARTMENT OF PATHOLOGY AND GENOMIC MEDICINE Calcium 8.2 (L) 8.8 - 10.2 mg/dL [facility] DEPARTMENT OF PATHOLOGY AND GENOMIC MEDICINE Protein 5.6 (L) 6.3 - 8.3 g/dL [facility] DEPARTMENT OF Comment: PATHOLOGY AND GENOMIC MEDICINE 4.6-7.0 g/dL 1 week 4.4-7.6 g/dL 7 months-1year 5.1-7.3 g/dL 1-2 years 5.6-7 .5 g/dL >3 years 6.0-8 .0 g/dL 18-150 6.3-8.3 g/dL Albumin 2.8 (L) 3.5 - 5.0 g/dL [facility] DEPARTMENT OF PATHOLOGY AND GENOMIC MEDICINE A/G ratio 1.0 0.7 - 3.8 [facility] DEPARTMENT OF PATHOLOGY AND GENOMIC MEDICINE Alkaline phosphatase 247 (H) 35 - 104 U/L [facility] DEPARTMENT OF PATHOLOGY AND GENOMIC MEDICINE AST 41 (H) 10 - 35 U/L [facility] DEPARTMENT OF PATHOLOGY AND GENOMIC MEDICINE ALT 26 5 - 50 U/L [facility] DEPARTMENT OF PATHOLOGY AND GENOMIC MEDICINE Total bilirubin 0.4 0.0 - 1.2 mg/dL [facility] DEPARTMENT OF PATHOLOGY AND GENOMIC MEDICINE Specimen Plasma specimen Performing Organization Address City/State/Zipcode Phone Number [facility] [place] [address] [place] [address] PATHOLOGY AND GENOMIC MEDICINE * Smear review (10/13/2017 5:30 AM) Only the most recent of 6 results within the time period is included. Platelet slide review Decreased (A) [facility] DEPARTMENT OF PATHOLOGY AND GENOMIC MEDICINE Anisocytosis Moderate [facility] DEPARTMENT OF PATHOLOGY AND GENOMIC MEDICINE Target cells Moderate (A) [facility] DEPARTMENT OF PATHOLOGY AND GENOMIC MEDICINE Ovalocytes Moderate [facility] DEPARTMENT OF PATHOLOGY AND GENOMIC MEDICINE Stomatocytes Moderate (A) [facility] DEPARTMENT OF PATHOLOGY AND GENOMIC MEDICINE Performing Organization Address [facility] Phone Number [facility] [id number] [place] [address] [place] [phone] PATHOLOGY AND GENOMIC MEDICINE * XR Chest 1 Vw Portable (10/11/2017 5:24 AM) Only the most recent of 4 results within the time period is included. Narrative Performed At EXAMINATION: XR CHEST 1 VW PORTABLE [facility] CLINICAL HISTORY: SHORTNESS OF BREATH COMPARISON: Yesterday IMPRESSION: Support lines and hardware unchanged. Better aeration at the right lung base, otherwise stable [id number] Procedure Note Hm Interface, Radiology Results Incoming - 10/11/2017 6:31 AM CDT EXAMINATION: XR CHEST 1 VW PORTABLE CLINICAL HISTORY: SHORTNESS OF BREATH COMPARISON: Yesterday IMPRESSION: Support lines and hardware unchanged. Better aeration at the right lung base, otherwise stable [id number] Performing Organization Address [facility] Phone Number [facility] [address] [place] [address] * Lactic acid level (10/11/2017 3:20 AM) Only the most recent of 3 results within the time period is included. Lactic acid 2.1 0.5 - 2.2 mmol/L [facility] DEPARTMENT OF PATHOLOGY AND GENOMIC MEDICINE Specimen Plasma specimen Performing Organization Address City/[facility] Phone Number [address] [place] [id number] PATHOLOGY AND GENOMIC MEDICINE * Lipid panel (10/11/2017 3:20 AM) Only the most recent of 2 results within the time period is included. Cholesterol 77 <200 mg/dL [facility] DEPARTMENT OF PATHOLOGY AND GENOMIC MEDICINE Triglycerides 95 <150 mg/dL [facility] DEPARTMENT OF PATHOLOGY AND GENOMIC MEDICINE HDL cholesterol 28 (L) >40 mg/dL [facility] DEPARTMENT OF PATHOLOGY AND GENOMIC MEDICINE LDL cholesterol 30Comment: Result obtained by <100 mg/dL [facility] DEPARTMENT OF direct LDL measurement PATHOLOGY AND GENOMIC MEDICINE Lipid panel SeeBelow [facility] DEPARTMENT OF interpretation Comment: PATHOLOGY [...] mg/dL) Specimen Plasma specimen Performing Organization Address [facility] Phone Number [address] [place] [address] PATHOLOGY AND GENOMIC MEDICINE * Magnesium level (10/10/2017 4:45 AM) Only the most recent of 9 results within the time period is included. Magnesium 2.6 (H) 1.6 - 2.4 mg/dL [facility] DEPARTMENT OF PATHOLOGY AND GENOMIC MEDICINE Specimen Plasma specimen Performing Organization Address [facility] Number [address] [place] [address] PATHOLOGY AND Wagon MEDICINE * Occult blood, stool (10/10/2017 4:00 AM) Occult blood, stool Negative for occult blood. [facility] DEPARTMENT OF Comment: PATHOLOGY AND Specimen Information GENOMIC MEDICINE Specimen Source: Stool Specimen Site: Preserved Specimen Stool - Preserved Performing Organization Address [facility] Number [address] [place] [address] PATHOLOGY AND GENOMIC MEDICINE * POC glucose (10/09/2017 8:14 PM) Only the most recent of 2 results within the time period is included. POC glucose 173 (H) 65 - 99 mg/dL [facility] DEPARTMENT OF Comment: PATHOLOGY AND Meter ID: [id number] GENOMIC MEDICINE Market Development Specialist: Abram Anderson Performing Organization Address [facility] Phone Number [address] [place] [address] PATHOLOGY AND GENOMIC MEDICINE * ECG 12 lead (10/09/2017 7:29 PM) Only the most recent of 4 results within the time period is included. Ventricular rate 132 [facility]USE Atrial rate 132 [facility] VA interval 88 [facility] QRSD interval 172 [facility] QT interval 374 [facility] QTC interval 554 [facility] MUSE P axis 1 174 [facility] QRS axis 1 -55 [facility] MUSE T wave axis 102 [facility] MUSE EKG impression Undetermined rhythm-Left axis [facility] MUSE deviation-Left bundle branch block-Abnormal ECG-- Performing Organization Address City/State/Zipcode Phone Number [facility] MUSE [address] [place] [address] * Hemoglobin & hematocrit (10/09/2017 4:15 PM) Only the most recent of 2 results within the time period is included. HGB 8.1 (L) 12.0 - 16.0 g/dL [facility] DEPARTMENT OF Comment: PATHOLOGY AND REPEAT VALUE 8.2 GENOMIC MEDICINE PT RECEIVED 2 UNITS PRBCS HCT 25.4 (L) 37.0 - 47.0 % [facility] DEPARTMENT OF PATHOLOGY AND GENOMIC MEDICINE Specimen Blood Performing Organization Address City/[facility]/Zipcode Phone Number [facility] DEPARTMENT [address] [place] [address] PATHOLOGY AND GENOMIC MEDICINE * Pv carotid [...] Address City/State/Zipcode Phone Number [facility] [address] [place] [address] * Echocardiogram complete w contrast and 3D [...] LA Ao Ratio Mmode 1.58 [facility] [place] End [place] Grad 4.51 [facility] VA End Diat Nikunj 1.06 [facility] AR [...] LV EF,BP 24.10 % [facility] [place],d A2C 9.25 cm [facility] [place],d A4C 8.75 cm [facility] [place],s A2C 8.04 cm [facility] [place],s A4C 8.17 cm [facility] LV SV,A2C [...] left ventricular diastolic filling. Performing Organization Address City/[facility] Phone Number [facility] [address] [place] [address] * Phosphorus level (10/09/2017 4:45 AM) Only the most recent of 8 results within the time period is included. Phosphorus 2.6 2.4 - 4.5 mg/dL [facility] DEPARTMENT OF PATHOLOGY AND GENOMIC MEDICINE Specimen Plasma specimen Performing Organization Address [facility] Phone Number [address] [place] [address] PATHOLOGY AND GENOMIC MEDICINE * Ionized calcium (10/09/2017 4:45 AM) pH 7.30 [facility] DEPARTMENT OF PATHOLOGY AND GENOMIC MEDICINE Ionized calcium 1.18 1.11 - 1.32 mmol/L [facility] DEPARTMENT OF PATHOLOGY AND GENOMIC MEDICINE Specimen Plasma specimen Performing Organization Address [facility] Phone Number [address] [place] [address] PATHOLOGY AND GENOMIC MEDICINE * Troponin (10/08/2017 11:50 PM) Only the most recent of 5 results within the time period is included. Troponin <0.300 0.000 - 0.300 ng/mL [facility] DEPARTMENT OF Comment: PATHOLOGY AND 0.30 - 1.49 GENOMIC MEDICINE ng/ml May indicate increased risk of acute coronary syndrome. >=1.5 ng/ml Consistent with acute myocardial infarction. The diagnostic value of a single normal or non-diagnostic result is questionable. Serial samples at 2-6 hour intervals are required to rule out acute myocardial injury. Specimen Plasma specimen Performing Organization Address [facility] Phone Number [address] [place] [address] PATHOLOGY AND GENOMIC MEDICINE * Arterial blood gas (10/08/2017 8:38 PM) pH, arterial 7.41 7.35 - 7.45 [facility] DEPARTMENT OF PATHOLOGY AND GENOMIC MEDICINE pCO2, arterial 35 35 - 45 mmHg [facility] DEPARTMENT OF PATHOLOGY AND GENOMIC MEDICINE pO2, arterial 88 80 - 90 mmHg [facility] DEPARTMENT OF PATHOLOGY AND GENOMIC MEDICINE Bicarbonate, arterial 22.8 21.0 - 28.0 mmol/L [facility] DEPARTMENT OF PATHOLOGY AND GENOMIC MEDICINE Base excess, arterial -2 -2 - 2 mEq/L [facility] DEPARTMENT OF PATHOLOGY AND GENOMIC MEDICINE O2 saturation, arterial 97 95 - 100 % [facility] DEPARTMENT OF PATHOLOGY AND GENOMIC MEDICINE FiO2, inspired O2% 21 % [facility] DEPARTMENT OF PATHOLOGY AND GENOMIC MEDICINE Specimen Blood Performing Organization Address City/State/Zipcode Phone Number [facility] [address] [place] [address] PATHOLOGY [facility] GENOMIC [facility] * CT Head Wo Contrast (10/08/2017 5:47 [...] and acknowledged by KAIT Singh at 10/08/2017 6:05 PM who verbalized understanding. [id number] Procedure Note Hm Interface, Radiology Results Incoming [...] 10/08/2017 6: 05 PM who verbalized understanding. [id number] Performing Organization Address City/State/Zipcode Phone Number [address] [address] * Gastrointestinal panel (10/08/2017 5:40 PM) Only the most recent of 2 results within the time period is included. Gastrointestinal panel Positive for C. difficile [facility] DEPARTMENT OF toxin PATHOLOGY AND GENOMIC MEDICINE [...] Specimen Stool - Nonpreserved Performing Organization Address City/[facility]/Zipcode Phone Number [facility] DEPARTMENT OF [address] [place] [address] PATHOLOGY AND GENOMIC MEDICINE * XR Chest 1 Vw (10/08/2017 5:29 PM) Only the most recent of 2 results within the time period is included. Narrative Performed At PROCEDURE: XR CHEST 1 VW [facility] CLINICAL HISTORY: CENTRAL LINE PLACEMENT COMPARISON: October [...] IMPRESSION: No acute abnormality in the chest. [id number] Procedure Note Interface, Radiology Results Incoming - [...] IMPRESSION: No acute abnormality in the chest. [id number] Performing Organization Address City/State/Zipcode Phone Number [facility] [address] [place] [address] * Prepare RBC, 2 Units (10/08/2017 4:04 PM) Product name Red Blood Cells -1, Leukored [facility] DEPARTMENT OF PATHOLOGY AND GENOMIC MEDICINE Unit number [id number] [facility] DEPARTMENT OF PATHOLOGY AND GENOMIC MEDICINE Product code [id number] [facility] DEPARTMENT OF PATHOLOGY AND GENOMIC MEDICINE Dispense status Transfused [facility] DEPARTMENT OF PATHOLOGY AND GENOMIC MEDICINE Blood expiration date [facility] DEPARTMENT OF PATHOLOGY AND GENOMIC MEDICINE Blood type code 6200 [facility] DEPARTMENT OF PATHOLOGY AND GENOMIC MEDICINE Blood type A POSITIVE [facility] DEPARTMENT OF PATHOLOGY AND GENOMIC MEDICINE Product name Red Blood Cells -1, Leukored [facility] DEPARTMENT OF PATHOLOGY AND GENOMIC MEDICINE Unit number [id number] [facility] DEPARTMENT OF PATHOLOGY AND GENOMIC MEDICINE Product code [id number] [facility] DEPARTMENT OF PATHOLOGY AND GENOMIC MEDICINE Dispense status Transfused [facility] DEPARTMENT OF PATHOLOGY AND GENOMIC MEDICINE Blood expiration date [id number] [facility] DEPARTMENT OF PATHOLOGY AND GENOMIC MEDICINE Blood type code 6200 [facility] DEPARTMENT OF PATHOLOGY AND GENOMIC MEDICINE Blood type A POSITIVE [facility] DEPARTMENT OF PATHOLOGY AND GENOMIC MEDICINE Performing Organization Address [facility] Phone Number [address] [place] [address] PATHOLOGY AND GENOMIC MEDICINE * Type and screen (10/08/2017 4:04 PM) ABO grouping A [facility] DEPARTMENT OF PATHOLOGY AND GENOMIC MEDICINE Rh type POS [facility] DEPARTMENT OF PATHOLOGY AND GENOMIC MEDICINE Antibody screen NEG [facility] DEPARTMENT OF PATHOLOGY AND GENOMIC MEDICINE Specimen Blood Performing Organization Address [facility] Phone Number [address] [place] [address] PATHOLOGY AND GENOMIC MEDICINE * B natriuretic peptide (10/08/2017 4:04 PM) Only the most recent of 3 results within the time period is included. BNP 197 (H) 0 - 100 pg/mL [facility] DEPARTMENT OF PATHOLOGY AND GENOMIC MEDICINE Specimen Blood Performing Organization Address [facility] Phone Number [address] [place] [address] PATHOLOGY AND [facility] MEDICINE * Creatine kinase, total (CPK) (10/08/2017 4:04 PM) Only the most recent of 2 results within the time period is included. Creatine kinase 50 26 - 192 U/L [facility] DEPARTMENT PATHOLOGY AND GENOMIC MEDICINE Specimen Plasma specimen Performing Organization Address [facility] Phone Number [address] [place] [address] PATHOLOGY AND [facility] MEDICINE * CRITICAL CARE (10/08/2017 3:00 PM) [...] of patient's condition and discussions with consultants Barahan 'yes' if you are taking over critical care for this patient from another provider.: no * CRITICAL CARE (10/08/2017 3:00 PM) Narrative Performed At Micha Nickerson DO 10/08/2017 8:26 PM Critical Care Performed by: MICAH NICKERSON Authorized by: MICHA NICKERSON Critical care [...] infection Alternatives discussed: Delayed treatment and observation Chicken protocol: Relevant documents present and verified: yes [...] period is included. Vancomycin, random 16.2 ug/mL [facility] DEPARTMENT OF Comment: PATHOLOGY AND Therapeutic Ranges: GENOMIC MEDICINE Peak 30.0 - 40.0 ug/mL Trough 10.0 - 20.0 ug/mL Specimen Blood Performing Organization Address City/State/Zipcode Phone Number [place] [address] [place] [address] PATHOLOGY AND GENOMIC MEDICINE * Manual differential (07/20/2017 6:45 AM) Only the most recent of 14 results within the time period is included. Manual differential PERFORMED [facility] DEPARTMENT OF PATHOLOGY AND GENOMIC MEDICINE Neutrophils 78.0 (H) 36.0 - 66.0 % [facility] DEPARTMENT OF PATHOLOGY AND GENOMIC MEDICINE Lymphocytes 9.0 (L) 24.0 - 44.0 % [facility] DEPARTMENT OF PATHOLOGY AND GENOMIC MEDICINE Monocytes 9.0 (H) 0.0 - 6.0 % [facility] DEPARTMENT OF PATHOLOGY AND GENOMIC MEDICINE Eosinophils 1.0 0.0 - 6.0 % [facility] DEPARTMENT OF PATHOLOGY AND GENOMIC MEDICINE Basophils 0.0 0.0 - 1.2 % [facility] DEPARTMENT OF PATHOLOGY AND GENOMIC MEDICINE Metamyelocytes 0 0 - 1 % [facility] DEPARTMENT OF PATHOLOGY AND GENOMIC MEDICINE Myelocytes 3 (H) 0 - 1 % [facility] DEPARTMENT OF PATHOLOGY AND GENOMIC MEDICINE Promyelocytes 0 0 - 1 % [facility] DEPARTMENT OF PATHOLOGY AND GENOMIC MEDICINE Platelet slide review Hamida slt decr [facility] DEPARTMENT OF PATHOLOGY AND GENOMIC MEDICINE Toxic granulation Slight [facility] DEPARTMENT OF PATHOLOGY AND GENOMIC MEDICINE Anisocytosis slight [facility] DEPARTMENT OF PATHOLOGY AND GENOMIC MEDICINE Polychromasia slight [facility] DEPARTMENT OF PATHOLOGY AND GENOMIC MEDICINE Tear drop cells Occasional [facility] DEPARTMENT OF PATHOLOGY AND GENOMIC MEDICINE Ovalocytes rare [facility] DEPARTMENT OF PATHOLOGY AND GENOMIC MEDICINE Performing Organization Address City/State/Zipcode Phone Number [facility] [address] [place] [address] PATHOLOGY AND GENOMIC MEDICINE * Vancomycin level, trough (07/18/2017 12:20 PM) Only the most recent of 3 results within the time period is included. Vancomycin, trough 38.6 (HH) 10.0 - 20.0 ug/mL [facility] DEPARTMENT OF Comment: PATHOLOGY AND Therapeutic Ranges: GENOMIC MEDICINE Peak 30.0 - 40.0 ug/mL Trough 10.0 - 20.0 ug/mL Results called to and read back by __Crystal on 2E by tmg 07/18/2017 14:22 RPT 40.4 Specimen Blood Performing Organization Address City/State/Zipcode Phone Number [place] [address] [place] [address] PATHOLOGY AND GENOMIC MEDICINE * CT Chest [...] the right kidney. 10. Other Findings: None [facility]-[id number] Procedure Note [facility], Radiology Results Incoming - 07/17/2017 6:28 PM JANITOR AND CLEANER EXAMINATION: CT CHEST WO CONTRAST CLINICAL HISTORY: [...] the right kidney. 10. Other Findings: None [facility]-[id number] Performing Organization Address City/[facility]/[place] [address] * AFB culture (07/17/2017 11:59 AM) Only the most recent of 4 results within the time period is included. AFB culture isolate No growth after 6 weeks of [facility] DEPARTMENT OF incubation. PATHOLOGY AND Comment: Wagon MEDICINE Specimen Information Specimen Source: Sputum Specimen Site: Expectorated Specimen Sputum - Expectorated Performing Organization Address [facility] [place] [address] PATHOLOGY AND GENOMIC MEDICINE * AFB stain (07/17/2017 11:59 AM) Only the most recent of 4 results within the time period is included. AFB stain No acid fast bacilli (AFB) [facility] DEPARTMENT OF seen. PATHOLOGY AND Comment: GENOMIC MEDICINE Specimen Information Specimen Source: Sputum Specimen Site: Expectorated Specimen Sputum - Expectorated Performing Organization Address [facility] Phone Number [facility] DEPARTMENT OF [address] [place] [address] PATHOLOGY AND GENOMIC MEDICINE * Respiratory culture (07/16/2017 1:52 PM) Only the most recent of 2 results within the time period is included. Respiratory culture Normal oral jovan and (A) [facility] DEPARTMENT OF isolate Comment: PATHOLOGY AND Specimen Information GENOMIC MEDICINE Specimen Source: Bronchial Washing Specimen Site: Washing Respiratory culture Staphylococcus aureus [facility] DEPARTMENT OF isolate Many PATHOLOGY AND susceptibility to follow [facility] This organism is Methicillin Resistant. (A) Specimen [...] ALBERTO 1 mcg/mL: Susceptible Performing Organization Address City/[facility] Phone Number [facility] DEPARTMENT OF [address] [place] [address] PATHOLOGY AND GENOMIC MEDICINE * Fungus smear (07/16/2017 1:52 PM) Fungus smear No fungi observed. [facility] DEPARTMENT OF Comment: PATHOLOGY AND Specimen Information GENOMIC MEDICINE Specimen Source: Bronchial Washing Specimen Site: Washing Specimen Bronchial washing - Washing Performing Organization Address [facility] Phone Number [facility] [place] [address] PATHOLOGY AND GENOMIC MEDICINE * Fungus culture (07/16/2017 1:52 PM) Fungus culture isolate No growth after 4 weeks of [facility] DEPARTMENT OF incubation. PATHOLOGY AND Comment: GENOMIC MEDICINE Specimen Information Specimen Source: Bronchial Washing Specimen Site: Washing Specimen Bronchial washing - Washing Performing Organization Address [facility] Phone Number [facility] DEPARTMENT OF [address] [place] [address] PATHOLOGY AND GENOMIC MEDICINE * Cytology (non-gynecological) request (07/16/2017 9:28 AM) Only the most recent of 2 results within the time period is included. [facility] DEPARTMENT OF PATHOLOGY AND GENOMIC MEDICINE Cytology See link below for PDF Lab [facility] DEPARTMENT OF (non-gynecological) Report PATHOLOGY AND report GENOMIC MEDICINE Result status This is Final Report to [facility] DEPARTMENT OF [id number] PATHOLOGY AND GENOMIC MEDICINE Performing Organization Address [facility] Phone Number [facility] DEPARTMENT [address] [place] [address] PATHOLOGY AND GENOMIC MEDICINE * ECG ED [...] ED 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 PATHOLOGY AND Negative for Flu B GENOMIC MEDICINE (A) Comment: Specimen Information Specimen Source: Nares Specimen Site: Right Specimen Nares - Right Performing Organization Address City/State/Zipcode Phone Number [facility] DEPARTMENT OF [address] [place] [address] PATHOLOGY AND GENOMIC MEDICINE * Blood culture, aerobic & anaerobic (07/08/2017 6:13 PM) Only the most recent of 4 results within the time period is included. Blood culture isolate No growth after 5 days of [facility] DEPARTMENT OF incubation. PATHOLOGY AND Comment: GENOMIC MEDICINE Specimen Information Specimen Source: Blood Specimen Site: right hand Specimen Blood Performing Organization Address City/State/Zipcode Phone Number [facility] DEPARTMENT OF [address] [place] [address] PATHOLOGY AND GENOMIC MEDICINE * XR Chest [...] a left-sided ICD. The bones are unremarkable. [id number] Procedure Note Interface, Radiology Results Incoming - 07/08/2017 5:22 PM JANITOR AND CLEANER EXAMINATION: XR CHEST 2 VW CLINICAL HISTORY: SHORTNESS OF BREATH COMPARISON: 2 view chest from 04/16/2017 IMPRESSION: Consolidative airspace disease is noted within the right midlung concerning for an underlying pneumonia. No pleural effusion. No pneumothorax or midline shift. Emphysematous changes. The mediastinal contours and cardiac silhouette are unchanged. Atherosclerotic disease and cardiomegaly. Stable positioning of a left-sided ICD. The bones are unremarkable. [id number] Performing Organization Address [facility]/[place] [address] * Sedimentation rate (04/19/2017 11:55 AM) Sedimentation rate 88 (H) 0 - 20 mm/hr [facility] DEPARTMENT OF PATHOLOGY AND GENOMIC MEDICINE Specimen Blood Performing Organization Address [facility] Phone Number [facility] DEPARTMENT OF [address] [place] [address] PATHOLOGY AND GENOMIC MEDICINE * C-reactive protein (04/19/2017 11:55 AM) CRP 25.57 (H) 0.00 - 0.50 mg/dL [facility] DEPARTMENT OF PATHOLOGY AND GENOMIC MEDICINE Specimen Plasma specimen Performing Organization Address [facility] Phone Number [facility] DEPARTMENT OF [address] [place] [address] PATHOLOGY AND GENOMIC MEDICINE * CT Lower Extremity W Contrast Left (04/17/2017 6:00 PM) Narrative Performed At EXAMINATION: CT LOWER EXTREMITY W CONTRAST LEFT [facility] CLINICAL HISTORY: left ankle swelling and pain [...] osteomyelitis. Incidental and/or degenerative changes as above. [facility]-[id number] Procedure Note [facility], Radiology Results Incoming - 04/17/2017 7:11 PM [...] osteomyelitis. Incidental and/or degenerative changes as above. [facility]-[id number] Performing Organization Address City/[facility]/Zipcode Phone Number [facility] [address] [place] [address] * Uric acid level (04/17/2017 5:50 PM) Uric acid 7.5 (H) 2.4 - 5.7 mg/dL [facility] DEPARTMENT OF PATHOLOGY AND GENOMIC MEDICINE Specimen Plasma specimen Performing Organization Address City/[facility] Phone Number [facility] DEPARTMENT [address] [address] PATHOLOGY AND GENOMIC MEDICINE * XR Ankle [...] Plantar calcaneal spur and Achilles enthesophyte noted. [facility]-[id number] Procedure Note Interface, Radiology Results Incoming - [...] Plantar calcaneal spur and Achilles enthesophyte noted. [facility]-[id number] Performing Organization Address City/State/Zipcode Phone Number [facility] [address] [place] [address] * Salmonella/shigella culture (04/15/2017 2:14 PM) Salmonella/shigella No Aeromonas isolated [facility] DEPARTMENT OF culture isolate Comment: PATHOLOGY AND Specimen Information GENOMIC MEDICINE Specimen Source: Stool Specimen Site: Nonpreserved Specimen Stool - Nonpreserved Performing Organization Address City/[facility]/Zipcode Phone Number [facility] DEPARTMENT OF [address] [place] [address] PATHOLOGY AND GENOMIC MEDICINE * Total iron binding capacity (04/14/2017 4:50 AM) Iron level 38 37 - 145 ug/dL [facility] DEPARTMENT OF PATHOLOGY AND GENOMIC MEDICINE Iron binding capacity 138 (L) 200 - 400 ug/dL [facility] DEPARTMENT OF PATHOLOGY AND GENOMIC MEDICINE % Saturation 27.5 15.0 - 38.0 % [facility] DEPARTMENT OF PATHOLOGY AND GENOMIC MEDICINE Specimen Plasma specimen Performing Organization Address City/[facility] [place] [address] PATHOLOGY AND GENOMIC MEDICINE * Immunofixation, serum (04/14/2017 4:50 AM) Immunofixation, serum SEE COMMENTComment: See [facility] DEPARTMENT OF electrophoresis report below. PATHOLOGY AND GENOMIC MEDICINE Specimen Serum Performing Organization Address [facility] [place] [address] PATHOLOGY AND GENOMIC MEDICINE * Reticulocyte count (04/14/2017 4:50 AM) Retic %, auto 2.3 (H) 0.5 - 2.1 % [facility] DEPARTMENT OF PATHOLOGY AND GENOMIC MEDICINE Retic absolute, auto 0.0640 0.0210 - 0.1155 m/uL [facility] DEPARTMENT OF PATHOLOGY AND GENOMIC MEDICINE Specimen Blood Performing Organization Address [facility] Phone Number [facility] [place] [address] PATHOLOGY AND GENOMIC MEDICINE * Thyroid stimulating hormone (04/14/2017 4:50 AM) TSH 2.49 0.27 - 4.20 uIU/mL [facility] DEPARTMENT OF PATHOLOGY AND GENOMIC MEDICINE Specimen Plasma specimen Performing Organization Address [facility] [place] [place] [address] PATHOLOGY AND GENOMIC MEDICINE * Serum electrophoresis (04/14/2017 4:50 AM) Protein 4.9 (L) 6.3 - 8.3 g/dL [facility] DEPARTMENT OF Comment: PATHOLOGY AND [place] GENOMIC MEDICINE 4.6-7.0 g/dL 1 week 4.4-7.6 g/dL 7 months-1year 5.1-7.3 g/dL 1-2 years 5.6-7 .5 g/dL >3 years 6.0-8 .0 g/dL 18-150 6.3-8.3 g/dL SPE albumin 2.40 (L) 4.00 - 5.30 g/dL [facility] DEPARTMENT OF PATHOLOGY AND GENOMIC MEDICINE SPE alpha 1 0.33 (H) 0.10 - 0.25 g/dL [facility] DEPARTMENT OF PATHOLOGY AND GENOMIC MEDICINE SPE alpha 2 0.95 (H) 0.58 - 0.84 g/dL [facility] DEPARTMENT OF PATHOLOGY AND GENOMIC MEDICINE SPE beta 0.78 0.50 - 1.10 g/dL [facility] DEPARTMENT OF PATHOLOGY AND GENOMIC MEDICINE SPE gamma 0.45 (L) 0.60 - 1.30 g/dL [facility] DEPARTMENT OF PATHOLOGY AND GENOMIC MEDICINE SPE extended See Comment [facility] DEPARTMENT OF interpretation Comment: PATHOLOGY AND Total protein and albumin are GENOMIC MEDICINE decreased while the concentrations of alpha-1 globulins and alpha-2 globulins are increased indicating an acute phase response to infection, inflammation or tissue injury. Gamma globulins are slightly decreased. No monoclonal bands are seen on immunofixation. SPE interpretation See CommentComment: [place] [facility] DEPARTMENT OF MD Channing; Quintin Alfredo, PATHOLOGY AND PhD; Sandrita Schneider, PhD; Demarco [facility] MEDICINE MD Jaxson PhD Specimen Serum Performing Organization Address City/[facility]/[place] [address] PATHOLOGY AND [facility] MEDICINE * Ferritin level (04/14/2017 4:50 AM) Ferritin level 281 (H) 13 - 150 ng/mL [facility] DEPARTMENT OF PATHOLOGY AND GENOMIC [facility] Specimen Plasma specimen Performing Organization Address City/[facility]/[place] [address] PATHOLOGY AND [facility] MEDICINE * Vitamin B12 level (04/14/2017 4:50 AM) Vitamin B12 411 211 - 946 pg/mL [facility] DEPARTMENT OF Comment: PATHOLOGY AND Significant overlap exists GENOMIC MEDICINE between normal and deficiency states. However, most patients with deficiencies will have Serum B12 <200 pg/mL. Specimen Serum Performing Organization Address City/[facility]/[place] [address] PATHOLOGY AND [facility] MEDICINE * C difficile toxin (04/13/2017 3:19 PM) Clostridium difficile No Clostridium difficle toxin [facility] DEPARTMENT OF toxin present PATHOLOGY AND Comment: GENOMIC MEDICINE Specimen Information Specimen Source: Stool Specimen Site: Per rectum Specimen Stool - Per rectum Performing Organization Address [facility]/Zipcode Phone Number [facility] [place] [address] PATHOLOGY AND GENOMIC MEDICINE * Respiratory pathogen panel (04/12/2017 11:30 PM) Respiratory pathogen Negative for all pathogens [facility] DEPARTMENT OF panel tested: PATHOLOGY AND Negative for Adenovirus GENOMIC [facility] Negative for Coronavirus HKU1 Negative for Coronavirus [...] Nares - Not specified Performing Organization Address [facility] Phone Number [facility] [place] [address] PATHOLOGY AND GENOMIC MEDICINE * Urea nitrogen, urine, random (04/12/2017 11:30 PM) Urea nitrogen, urine, 733 mg/dL [facility] DEPARTMENT OF random PATHOLOGY AND GENOMIC MEDICINE Specimen Urine Performing Organization Address City/[facility]/Zipcode Phone Number [facility] [place] [address] PATHOLOGY AND GENOMIC MEDICINE * Streptococcus pneumoniae urinary antigen (04/12/2017 11:30 PM) Strep pneumo urinary Ag Negative for Streptococcus [facility] DEPARTMENT OF pneumoniae antigen. PATHOLOGY AND Comment: GENOMIC MEDICINE Specimen Information Specimen Source: Urine Specimen Site: Catheterized Specimen Urine - Catheterized Performing Organization Address City/[facility]/Zipcode Phone Number [facility] [place] [address] PATHOLOGY AND GENOMIC MEDICINE * Legionella urinary antigen (04/12/2017 11:30 PM) Legionella urinary Negative for Legionella [facility] DEPARTMENT OF antigen serogroup 1 antigen. PATHOLOGY AND Comment: GENOMIC MEDICINE Specimen Information Specimen Source: Urine Specimen Site: Catheterized Specimen Urine - Catheterized Performing Organization Address City/State/Zipcode Phone Number [facility] [place] [address] PATHOLOGY AND GENOMIC MEDICINE * Sodium level, urine, random (04/12/2017 11:30 PM) Sodium, urine, random 97 mEq/L [facility] DEPARTMENT OF PATHOLOGY AND GENOMIC MEDICINE Specimen Urine Performing Organization Address [facility] Phone Number [facility] [place] [address] PATHOLOGY AND GENOMIC MEDICINE * Creatinine level, urine, random (04/12/2017 11:30 PM) Creatinine, urine, random 69 mg/dL [facility] DEPARTMENT OF PATHOLOGY AND GENOMIC MEDICINE Specimen Urine Performing Organization Address [facility] Phone Number [facility] [place] [address] PATHOLOGY AND GENOMIC MEDICINE * Chloride level, urine, random (04/12/2017 11:30 PM) Chloride, urine, random 74 mEq/L [facility] DEPARTMENT OF PATHOLOGY AND GENOMIC MEDICINE Specimen Urine Performing Organization Address City/[facility] Phone Number [facility] [place] [address] PATHOLOGY AND GENOMIC MEDICINE * Sputum culture (04/12/2017 4:45 PM) Sputum culture isolate Normal oral jovan and (A) [facility] DEPARTMENT OF Comment: PATHOLOGY AND Specimen Information GENOMIC MEDICINE Specimen Source: Sputum Specimen Site: Expectorated Sputum culture isolate Enterococcus faecalis [facility] DEPARTMENT OF Many PATHOLOGY AND [facility] [place] MEDICINE characteristics of this assay on this isolate were validated by the Microbiology Laboratory at [facility]. This source has not been approved [...] ALBERTO 1 mcg/mL: Susceptible Performing Organization Address [facility] Phone Number [facility] DEPARTMENT [address] [place] [address] PATHOLOGY AND GENOMIC MEDICINE * XR Hips [...] degenerative changes involving the lower lumbar spine. [facility]-[id number] Procedure Note Interface, Radiology Results Incoming - [...] degenerative changes involving the lower lumbar spine. [facility]-[id number] Performing Organization Address [facility] Phone Number [facility] [address] [place] [address] * XR Lumbar Spine 2 Or 3 [...] endplate degenerative changes worst at L4- 5. [facility]-[id number] Procedure Note Interface, Radiology Results Incoming - [...] and endplate degenerative changes worst at L4-5. [facility]-[id number] Performing Organization Address City/State/Zipcode Phone Number [facility] [address] [place] [address] after 03/21/2017 Insurance Payer Benefit Subscriber ID Type Phone Address Plan / Group MEDICARE MEDICARE xxxxxxxxxx Medicare [place], [place] PART A AND B COMMERCIAL MISC MISC xxxxxxxxx [place] [address]
--- NOTE | 2018-04-19 10:08 | Consultation ---
DATE OF CONSULTATION: March 25, 2018 CONSULTATION TO: Dr. Charu Traylor HISTORY: Regla Khan is a 72-year-old patient referred to me for evaluation of thrombocytopenia. The patient was admitted with bronchial pneumonia, Clostridium colitis, cardiac arrhythmias, COPD, congestive heart failure. Subsequently found to have a low platelet count. Subsequently referred to me for further evaluation and treatment. SOCIAL HISTORY: Noncontributory. FAMILY HISTORY: Noncontributory. ALLERGIES: 1. AUGMENTIN. 2. PRAVASTATIN. 3. ADHESIVE TAPE. 4. BUPROPION. MEDICATIONS: At this time: 1. Albuterol. 2. Zosyn. 3. Vancomycin. 4. Potassium. 5. Amiodarone. 6. Synthroid. 7. Tylenol with hydrocodone. 8. Oxybutynin. 9. Lasix. 10. Morphine. 11. Lovenox. 12. Pepcid. 13. Coreg. 14. Potassium chloride. REVIEW OF SYSTEMS: HEENT: Normal. CARDIAC: History of hypertension. RESPIRATORY: History of bronchial pneumonia. History of congestive heart failure. GI: Normal. : Normal. MUSCULOSKELETAL: Normal. SKIN AND BREASTS: Reported normal. NEUROENDOCRINE: History of hypothyroidism. PHYSICAL EXAMINATION: GENERAL: A morbidly obese patient. HEENT: No palpable adenopathy. HEART: Within normal limits. LUNGS: Coarse crepitations. ABDOMEN: Obese. RECTAL: Deferred. CENTRAL NERVOUS SYSTEM: Could not be done. LABS: Showed low platelets of 72,000 on March 23. However, they have recovered to 143,000 on March 25. Hemoglobin of 10.6, hematocrit of 33.2, white count of 14,700. Sodium 142, potassium 3.4, chloride is 101, CO2 27, BUN 15, creatinine 1.1, glucose 71. Bilirubin 0.6, SGOT 37, SGPT 22, alkaline phosphatase 111. IMPRESSION: 1. Bronchial pneumonia. 2. Clostridium difficile colitis. 3. Morbid obesity. 4. History of cardiac arrhythmia. 5. History of automatic implantable cardioverter-defibrillator. 6. History of chronic obstructive pulmonary disease. 7. History of congestive heart failure. 8. History of pulmonary embolism and deep venous thrombosis in 2003. 9. Status post partial colectomy for perforation in 2010. 10. Transient thrombocytopenia. 11. Hypokalemia. 12. Hypoproteinemia. 13. Hypoalbuminemia. 14. Hypothyroidism. PLAN, COMMENTS, AND SUGGESTIONS: Will observe the platelets as they have recovered. I will follow the platelets. Thank you. Job#: [id number]
--- NOTE | 2018-04-26 00:56 | Discharge Summary ---
CHIEF COMPLAINT: Pneumonia and UTI. FINAL DIAGNOSES 1. Aspiration pneumonia. 2. Clostridium difficile multidrug resistant sputum. 3. Debility. 4. Congestive heart failure. 5. Chronic obstructive pulmonary disease. DISPOSITION: [facility]. HOSPITAL COURSE: A 72-year-old female with history of multiple medical problems admitted from the emergency room with the patient was complaining of having a cough for 2 weeks associated with nausea and vomiting. She is a assisted resident. Her cough has been productive. She also has been having some issues with constipation. She had taken some stool softeners and since then she has been having of runny diarrhea. Brought to the emergency room for evaluation. Underwent review and evaluation as mentioned. Blood and x-rays were conducted. Patient was admitted to the facility for evaluation and care regarding assisted acquired pneumonia, UTI, sepsis, history of congestive heart failure, cardiac arrhythmia, osteoarthritis, hypothyroidism, history of nausea, vomiting, and diarrhea. Will be admitting to IM. In IMCU, she was placed on routine protocol orders. Also receiving a clear liquid diet initially. She was started on respiratory treatments, started on Zosyn 3.375 IV q. 6 h. along with vancomycin 1 g IV q.12 h. Her daily medications were continuing as well. Laboratory studies were showing her potassium to be borderline at 3.4. Kidney functions stable. Glucose 61. CBC stable although the platelet count was low at 72,000. Care continued. She was resting comfortably. Chest x-rays were showing right cavitary lesion with pneumonia. She was revealing positive stool studies for C. diff. She was continuing on the IV vancomycin with IV Zosyn. She was also being placed on p.o. vancomycin 250, also receiving O2 nasal cannula. Further potassium drifted down to 3.1. Repeat platelets 139,000. Began potassium replenishment. She was having no further issues. She was still having some cough. No shortness of breath. Her diarrhea was improving and she was progressing. Sputum was returning. Cultures were revealing Klebsiella, ESBL, MRSA, multidrug-resistant Enterobacter. Urine was showing Proteus. She was on the desired medications, i.e., antibiotics. As she continued her stay, she was taken off the Zosyn, continuing on the vancomycin, now receiving tobramycin 300 mg b.i.d. She was able to be taken out of IMCU. Placed on the med/surg floor where her care was continuing. Maintaining isolation management due to her MRSA findings. Followup potassium is now at 3.5. She is going to be requiring further care. Case management was called in to assist transfer placement to [facility]. She was accepted at the location. She was transferred there on March 28, 2018, in stable condition. EKGs are showing AV sequential dual-chamber electronic pacemaker capture. Follow with echocardiogram showing ejection fraction between 55% and 60%. Trace pericardial effusion. Trace pleural effusion. Transferred to [facility]. She will continue her current MARs. Continue with her IV access, i.e., PICC line. Her diet will continue. I will continue to monitor her status at that facility on a daily basis. Continue to request systems management consultant follows, and I will be making adjustments as needed. Dictated by LAMAR Kapadia TARAH AGRAWAL MD Job#: [id number] CF
== END 2018-03-28 17:59 | DRG 871 ==
LOC: ER 16:57 → ERHOLD 22:10 → IMCU 03-23 01:42 → MED/SURG3 03-26 17:23
PROVIDERS: ADMIT Internal Medicine; ATTEND Internal Medicine
PROC: 02HV33Z Insertion of Infusion Device into Superior Vena Cava, Percutaneous Approach (ICD-10-PCS; principal; 2018-03-24)
DX: A41.9 Sepsis, unspecified organism (principal); J69.0 Pneumonitis due to inhalation of food and vomit; N39.0 Urinary tract infection, site not specified; A04.72 Enterocolitis due to Clostridium difficile, not specified as recurrent; A15.0 Tuberculosis of lung; I13.0 Hypertensive heart and chronic kidney disease with heart failure and stage 1 through stage 4 chronic kidney disease, or unspecified chronic kidney disease; I50.22 Chronic systolic (congestive) heart failure; R65.20 Severe sepsis without septic shock; J44.9 Chronic obstructive pulmonary disease, unspecified; I50.9 Heart failure, unspecified; E03.9 Hypothyroidism, unspecified; E05.00 Thyrotoxicosis with diffuse goiter without thyrotoxic crisis or storm; Z74.01 Bed confinement status; Z95.810 Presence of automatic (implantable) cardiac defibrillator; D69.6 Thrombocytopenia, unspecified; R53.81 Other malaise; E87.6 Hypokalemia; E77.8 Other disorders of glycoprotein metabolism; E88.09 Other disorders of plasma-protein metabolism, not elsewhere classified; Z87.891 Personal history of nicotine dependence; Z86.718 Personal history of other venous thrombosis and embolism; Z79.01 Long term (current) use of anticoagulants; N18.9 Chronic kidney disease, unspecified; D69.59 Other secondary thrombocytopenia; T36.0X5A Adverse effect of penicillins, initial encounter; G89.4 Chronic pain syndrome; E66.9 Obesity, unspecified; Z68.29 Body mass index [BMI] 29.0-29.9, adult; B96.20 Unspecified Escherichia coli [E. coli] as the cause of diseases classified elsewhere; Z16.12 Extended spectrum beta lactamase (ESBL) resistance
CPT/HCPCS: 36415; 36569; 71045; 71250; 74176; 80048; 80053; 80202; 81001; 82150; 82270; 82550; 82553; 83605; 83690; 83735; 83880; 84443; 84484; 85025; 85610; 85730; 87040; 87070; 87086; 87116; 87186; 87205; 87206; 87493; 93005; 93306; 94640; 96361; 96374; 96376; 97139; 99284; J1650; J1940; J1956; J2270; J2405; J2543; J3260; J3370; J3480; J7030; J7050; J7512; Q9967